=== PATIENT | male | born 1940 ===

== ENCOUNTER 2018-06-22 08:51 | Inpatient (IN) | payer BC, MEDICARE ==
[2018-06-22] MEDS ORDERED: Aztreonam 2 GM in Sodium Chloride 0.9% 100 ML IVPB STA (09:12)
[2018-06-22] MEDS ORDERED: Vancomycin 1 gm/NS 200 ml 1 GM/200 ML BAG IVPB STA (09:12)
[2018-06-22] MEDS ORDERED: (Novolin R) Insulin Human Regular 100 units/ml vial SC ONE (09:25)
[2018-06-22] MEDS ORDERED: (Novolin R) Insulin Human Regular 100 units/ml vial ONE (09:35)
[2018-06-22] MEDS ORDERED: Vancomycin 1 GM 1 GM/250 ML BAG IVPB ONE (09:36)
[2018-06-22 09:37] LABS: BASO % 0.2 % (0.0-2.0); HEMOGLOBIN 14.7 g/dL (12.0-18.0); LYMPH # 0.6 K/uL (1.0-4.3); LYMPH % 4.2 % (20.0-40.0); MEAN CELL VOLUME 89.7 fL (80.0-94.0); MEAN CORPUSCULAR HEMOGLOBIN 29.5 pg (27.0-31.0); MEAN CORPUSCULAR HGB CONC 32.9 g/dL (33.0-37.0); MEAN PLATELET VOLUME 10.3 fL (7.2-11.7); MONO # 0.3 K/uL (0.0-0.8); MONO % 2.1 % (0.0-10.0); NEUT # 14.2 K/uL (1.8-7.0); NEUT % 93.5 % (50.0-75.0); PLATELET COUNT 222 K/uL (130-400); RBC 4.98 Mil/uL (4.40-5.90); RED CELL DISTRIBUTION WIDTH 13.9 % (11.5-14.5); WHITE BLOOD COUNT 15.2 K/uL (4.8-10.8)
[2018-06-22 09:51] LABS: VENOUS BLOOD GAS PCO2 43 mmHg (40-60); VENOUS BLOOD GAS PO2 19 mm/Hg (30-55); VENOUS BLOOD PH 7.27 (7.32-7.43)
--- NOTE | 2018-06-22 09:53 | C.PDOC ---
History Of Present Illness Pt is a 78 years old male is a poor historian due to clinical condition. As per EMS, patient's called 911 for complaints of patient's aggressive and combative behavior since yesterday. As per EMS, also reports, patient is warm to touch, and he fell off of a chair this morning (but no head trauma). Pt is currently trying to punch this physician and does not answer questions. I called pt's PMD (Dr. Jhony Chu) and he states pt is normally calm and reports that the pt has a PMH of HTM, DM, hyperthyroidism, gastritis, renal failure, high cholesterol and DE. He states pt should be admitted to Dr. Dilan Aragon. As per EMS, should be arriving to the hospital a little later. PMD: * Vlad Mann Time Seen by Provider: 06/22/18 09:12 Chief Complaint (Nursing): Weakness/Neurological Deficit History Per: EMS, Family () History/Exam Limitations: clinical condition Onset/Duration Of Symptoms: Hrs Current Symptoms Are (Timing): Still Present Location Of Pain: None Sick Contacts (Context): None Associated Symptoms: Fever Ear Symptoms: Bilateral: None Recent travel outside of the [place]: No Past Medical History Reviewed: Historical Data, Nursing Documentation, Vital Signs Vital Signs: Last Vital Signs Temp 101.7 F H 06/22/18 09:08 Pulse 97 H 06/22/18 08:58 Resp 22 06/22/18 08:58 BP 202/103 H 06/22/18 08:58 Pulse Ox 95 06/22/18 08:58 - Medical History PMH: HTN Other PMH: See HPI Surgical History: No Surg Hx Family History: States: No Known Family Hx - Social History Hx Alcohol Use: No Hx Substance Use: No - Immunization History Hx Tetanus Toxoid Vaccination: No Hx Influenza Vaccination: No Hx Pneumococcal Vaccination: No Review Of Systems Review Of Systems: ROS cannot be obtained secondary to pt's inabilty to answer questions. (Due to Clinical condition) Constitutional: Positive for: Fever Physical Exam - Physical Exam Appears: Non-toxic, No Acute Distress, Combative, Agitated, Other (Patient Currently awake, alert, combative, not answering questions and tried to punch me) Skin: Normal Color, Warm, Dry, No Rash Head: Atraumatic Eye(s): bilateral: Normal Inspection, EOMI Ear(s): Bilateral: Normal Nose: Normal Oral Mucosa: Moist Tongue: Normal Appearing Lips: Normal Appearing Teeth: Normal Dentition Neck: Normal, Normal ROM, Supple, Other (no nuchal rigidity) Chest: Symmetrical, No Deformity, No Tenderness Cardiovascular: Rhythm Regular, No Murmur Respiratory: Normal Breath Sounds (Clear to auscultation bilaterally ), No Decreased Breath Sounds, No Rales, No Rhonchi, No Wheezing Gastrointestinal/Abdominal: Normal Exam, Bowel Sounds, Soft, No Tenderness, No Distention, No Guarding, No Rebound Rectal: Deferred Back: Normal Inspection Male Genital: Normal Inspection Extremity: Normal ROM, No Calf Tenderness, No Deformity Extremity: Bilateral: Atraumatic, No Pedal Edema, Normal Color And Temperature Pulses: Left Radial: Normal, Right Radial: Normal Neurological/Psych: Normal Speech, Normal Motor, Normal Sensation, Normal Reflexes, Other (No focal deficits, moves all ext equal bilaterally) ED Course And Treatment - Laboratory Results Result Diagrams: 06/22/18 09:29 06/22/18 09:29 O2 Sat by Pulse Oximetry: 95 (RA) Pulse Ox Interpretation: Normal - CT Scan/US CT HEAD Other Rad Studies (CT/US): Read By Radiologist, Radiology Report Reviewed CT/US Interpretation: Date of service: 06/22/2018. PROCEDURE: CT HEAD WITHOUT CONTRAST. HISTORY: Altered mental status. COMPARISON: None available. TECHNIQUE: Axial computed tomography images were obtained through the head/brain without intravenous contrast. Radiation dose: Total exam DLP = 1044.34 mGy-cm. This CT exam was performed using one or more of the following dose reduction techniques: Automated exposure control, adjustment of the mA and/or kV according to patient size, and/or use of iterative reconstruction technique. FINDINGS: HEMORRHAGE: No acute parenchymal, subarachnoid or extra- axial hemorrhage. BRAIN: Mild diffuse/confluent chronic periventricular white matter ischemic changes seen extending peripherally into the deep and subcortical white matter both cerebral hemispheres. In addition, there is a chronic appearing lacunar type infarct right thalamus with a few tiny focal areas of low attenuation scattered about both basal nuclei likely representing tiny chronic lacunar type infarcts . Suspect mild chronic brainstem lacunar type infarcts as well. No obvious parenchymal or extra-axial mass or collection. Moderate generalized volume loss. Actually no infra got. VENTRICLES: No obstructive hydrocephalus. CALVARIUM: No acute calvarial fractures vascular calcifications are seen within the scalp suggesting underlying diabetes mellitus. PARANASAL SINUSES: Unremarkable as visualized. No significant inflammatory changes. MASTOID AIR CELLS: Unremarkable as visualized. No inflammatory changes. OTHER FINDINGS: None. IMPRESSION: Mild diffuse/confluent chronic periventricular white matter ischemic changes seen extending peripherally into the deep and subcortical white matter both cerebral hemispheres. In addition, there is a chronic appearing lacunar type infarct right thalamus with a few tiny focal areas of low attenuation scattered about both basal nuclei likely representing tiny chronic lacunar type infarcts as well. Suspect mild chronic brainstem lacunar type infarcts as well. Moderate generalized volume loss. Medical Decision Making Medical Decision Making: Initial impression: * Sepsis- Source unclear Initial Plan: * Activation of sepsis order set Code sepsis activated at 9:53 AM 06/22/2018. Lactate is 3.3 -- patient meets core measure criteria for severe sepsis. Called private physician Vlad Mann which states patient has PMHx of Htn, diabetes, hyperthyroidism, gastritis, high cholestrol, renal faliure, and DE. He recommends for patient to be admitted under [facility]. 11:18 AM - I spoke to Dr. Melendez and agrees with ICU admission (recommends switch insulin drip to 2 U/hr and change fluids to 125 ml/hr). I endorsed pt to Dr. Chato Aragon. Dr. Aragon wants IV ceftriaxone to be given and also recommends ID consult with Dr. Arteaga. Disposition - Disposition Disposition: HOSPITALIZED Disposition Time: 11:20 Condition: SERIOUS - Clinical Impression Clinical Impression: Severe sepsis, Hyperglycemia, Altered mental status - Scribe Statement The provider has reviewed the documentation as recorded by the Zaraibashwin Maldonado All medical record entries made by the Scribe were at my direction and personally dictated by me. I have reviewed the chart and agree that the record accurately reflects my personal performance of the history, physical exam, medic al decision making, and the department course for this patient. I have also personally directed, reviewed, and agree with the discharge instructions and disposition. Decision To Admit - Pt Status Changed To: Hospital Disposition Of: Inpatient - Admit Certification Admit to Inpatient:: After my assessment, the patient will require hospitalization for at least two midnights. This is because of the severity of symptoms shown, intensity of services needed, and/or the medical risk in this patient being treated as an outpatient. - InPatient: Physician Admission Certification:: Patient with severe sepsis (using Sepsis-2 definitions; national core measure definitions). - . Bed Request Type: ICU Admitting Physician: Kevin Aragon Patient Diagnosis: Severe sepsis, Hyperglycemia, Altered mental status
[2018-06-22 10:04] LABS: TROPONIN I 0.05 ng/mL (0.00-0.120)
[2018-06-22 10:29] LABS: SQUAMOUS EPITHIAL < 1 /hpf (0-5); URINE BACTERIA RARE (<OCC); URINE BILIRUBIN NEGATIVE (NEGATIVE); URINE BLOOD 2+ (NEGATIVE); URINE CLARITY Clear (Clear); URINE COLOR Yellow (YELLOW); URINE GLUCOSE (UA) 3+ mg/dL (Normal); URINE LEUKOCYTE ESTERASE NEG Leu/uL (Negative); URINE PROTEIN 2+ mg/dL (NEGATIVE); URINE UROBILINOGEN NORMAL mg/dL (0.2-1.0)
--- NOTE | 2018-06-22 10:30 | CT ---
Date of service: 06/22/2018 PROCEDURE: CT HEAD WITHOUT CONTRAST. HISTORY: Altered mental status COMPARISON: None available. TECHNIQUE: Axial computed tomography images were obtained through the head/brain without intravenous contrast. Radiation dose: Total exam DLP = 1044.34 mGy-cm. This CT exam was performed using one or more of the following dose reduction techniques: Automated exposure control, adjustment of the mA and/or kV according to patient size, and/or use of iterative reconstruction technique. FINDINGS: HEMORRHAGE: No acute parenchymal, subarachnoid or extra-axial hemorrhage. BRAIN: Mild diffuse/confluent chronic periventricular white matter ischemic changes seen extending peripherally into the deep and subcortical white matter both cerebral hemispheres. In addition, there is a chronic appearing lacunar type infarct right thalamus with a few tiny focal areas of low attenuation scattered about both basal nuclei likely representing tiny chronic lacunar type infarcts . Suspect mild chronic brainstem lacunar type infarcts as well. No obvious parenchymal or extra-axial mass or collection. Moderate generalized volume loss. Actually no infra got VENTRICLES: No obstructive hydrocephalus. CALVARIUM: No acute calvarial fractures vascular calcifications are seen within the scalp suggesting underlying diabetes mellitus. PARANASAL SINUSES: Unremarkable as visualized. No significant inflammatory changes. MASTOID AIR CELLS: Unremarkable as visualized. No inflammatory changes. OTHER FINDINGS: None. IMPRESSION: Mild diffuse/confluent chronic periventricular white matter ischemic changes seen extending peripherally into the deep and subcortical white matter both cerebral hemispheres. In addition, there is a chronic appearing lacunar type infarct right thalamus with a few tiny focal areas of low attenuation scattered about both basal nuclei likely representing tiny chronic lacunar type infarcts as well. Suspect mild chronic brainstem lacunar type infarcts as well. Moderate generalized volume loss.
[2018-06-22 10:32] LABS: ALB/GLOB RATIO 1.2 (1.0-2.1); ALBUMIN 4.3 g/dL (3.5-5.0); BANDS 1 % (0-2); BASOPHIL 1 % (0-2); CALCIUM 9.1 mg/dl (8.6-10.4); LYMPHOCYTE 4 % (20-40); MONOCYTE 3 % (0-10); NEUTROPHIL 91 % (50-75); PLATELET ESTIMATE NORMAL (NORMAL); TOTAL CELLS COUNTED 100
[2018-06-22 10:33] LABS: ANISOCYTOSIS SLIGHT
[2018-06-22] MEDS ORDERED: Insulin Human Regular 100 UNIT in Sodium Chloride 0.9% 99 ML IV STA ×3 (11:01→13:06)
[2018-06-22] MEDS ORDERED: Sodium Chloride 0.9% 1,000 ML IV ONE ×2 (11:03→11:17)
[2018-06-22] MEDS ORDERED: cefTRIAXone 2 GM in Sodium Chloride 0.9% 100 ML IVPB ONE (11:15)
[2018-06-22] MEDS: cefTRIAXone 2 GM in Sodium Chloride 0.9% 100 ML IVPB STA ×2 (11:43→13:45)
[2018-06-22 12:28] LABS: VENOUS BLOOD GAS BASE EXCESS -4.8 mmol/L (0.0-2.0); VENOUS BLOOD GAS PCO2 41 mmHg (40-60); VENOUS BLOOD GAS PO2 24 mm/Hg (30-55); VENOUS BLOOD PH 7.32 (7.32-7.43)
[2018-06-22] MEDS ORDERED: Midazolam 2 MG/2 ML VIAL IVP ONE (14:00)
--- NOTE | 2018-06-22 14:26 | RAD ---
Date of service: [facility] 06/22/2018 PROCEDURE: Radiographs of the pelvis. HISTORY: Fall r/o pelvic bony injury COMPARISON: No prior available FINDINGS: BONES: Pelvic Bones: Unremarkable. Hips: Grossly unremarkable. JOINTS: Sacroiliac Joints: Unremarkable. Pubic Symphysis: Unremarkable. OTHER FINDINGS: Incidental note made of a thin radiopaque (metallic appearing linear density) overlying the true pelvis. Rule out in situ Wright catheter; clinical correlation recommended. IMPRESSION: No evidence of acute displaced fracture nor dislocation. See above discussion for additional findings details and recommendations
--- NOTE | 2018-06-22 14:28 | RAD ---
Date of service: 06/22/2018 HISTORY: Sepsis Patient COMPARISON: No prior. FINDINGS: LUNGS: Slight increased pulmonary vascularity; rule out mild chronic compensated pulmonary edema/CHF. Mild bibasilar atelectasis. PLEURA: No significant pleural effusion identified, no pneumothorax apparent. CARDIOVASCULAR: Sternotomy wires and CABG clips and in situ prostatic valve. Cardiomegaly. OSSEOUS STRUCTURES: No significant abnormalities. VISUALIZED UPPER ABDOMEN: Normal. OTHER FINDINGS: None. IMPRESSION: Slight increased pulmonary vascularity; rule out mild chronic compensated pulmonary edema/CHF. Mild bibasilar atelectasis. Cardiomegaly. See above discussion for additional details and findings.
[2018-06-22 15:00] LABS: BARBITURATES, UR NEGATIVE (NEGATIVE); BENZODIAZEPINES, UR NEGATIVE (NEGATIVE); OPIATES, UR NEGATIVE (NEGATIVE); PHENCYCLIDINE, UR NEGATIVE (NEGATIVE)
--- NOTE | 2018-06-22 15:40 | CP.PCM.HP ---
Past Patient History - Infectious Disease Hx of Infectious Diseases: None - Past Medical History & Family History Past Medical History?: Yes - Past Social History Smoking Status: Former Smoker - CARDIAC Hx Hypertension: Yes - NEUROLOGICAL Other/Comment: alzheimers?? dementia??? - ENDOCRINE/METABOLIC Hx Diabetes Mellitus Type 2: Yes - MUSCULOSKELETAL/RHEUMATOLOGICAL Hx Falls: No - PSYCHIATRIC Hx Substance Use: No - ANESTHESIA Hx Anesthesia: No Meds Allergies/Adverse Reactions: Allergies Allergy/AdvReac Type Severity Reaction Status Date / Time No Known Allergies Allergy Verified 06/22/18 09:05 Physical Exam - Constitutional Appears: Well - Head Exam Head Exam: ATRAUMATIC, NORMAL INSPECTION, NORMOCEPHALIC - Eye Exam Eye Exam: EOMI, Normal appearance, PERRL Pupil Exam: NORMAL ACCOMODATION, PERRL - ENT Exam ENT Exam: Mucous Membranes Moist, Normal Exam - Neck Exam Neck exam: Positive for: Normal Inspection - Respiratory Exam Respiratory Exam: Decreased Breath Sounds - Cardiovascular Exam Cardiovascular Exam: REGULAR RHYTHM, +S1, +S2 - GI/Abdominal Exam GI & Abdominal Exam: Diminished Bowel Sounds, Soft - Rectal Exam Rectal Exam: Deferred Results - Vital Signs Recent Vital Signs: Last Vital Signs Temp 100.4 F H 06/22/18 12:25 Pulse 98 H 06/22/18 13:07 Resp 20 06/22/18 13:00 BP 161/74 H 06/22/18 12:30 Pulse Ox 100 06/22/18 13:07 - Labs Result Diagrams: 06/22/18 09:29 06/22/18 09:29 Labs: Laboratory Results - last 24 hr 06/22/18 06/22/18 06/22/18 08:58 09:29 09:29 WBC 15.2 H RBC 4.98 Hgb 14.7 Hct 44.7 MCV 89.7 MCH 29.5 MCHC 32.9 L RDW 13.9 Plt Count 222 MPV 10.3 Neut % (Auto) 93.5 H Lymph % (Auto) 4.2 L [place] % (Auto) 2.1 Eos % (Auto) 0.0 Baso % (Auto) 0.2 Neut # (Auto) 14.2 H Lymph # (Auto) 0.6 L [place] # (Auto) 0.3 Eos # (Auto) 0.0 Baso # (Auto) 0.0 Neutrophils % (Manual) 91 H Band Neutrophils % 1 Lymphocytes % (Manual) 4 L Monocytes % (Manual) 3 Basophils % (Manual) 1 Platelet Estimate Normal Anisocytosis (manual) Slight PT 11.0 INR 1.0 APTT 32 pO2 VBG pH VBG pCO2 VBG HCO3 VBG Total CO2 VBG O2 Sat (Calc) VBG Base Excess VBG Potassium Glucose Lactate Crit Value Called To Crit Value Called By Crit Value Read Back Blood Gas Notified Time Sodium Potassium Chloride Carbon Dioxide Anion Gap BUN Creatinine Est GFR ( Amer) Est GFR (Non-Af Amer) POC Glucose (mg/dL) > 500 H* Random Glucose Calcium Phosphorus Magnesium Total Bilirubin AST ALT Alkaline Phosphatase Troponin I NT-Pro-B Natriuret Pep Total Protein Albumin Globulin Albumin/Globulin Ratio Venous Blood Potassium Urine Color Urine Clarity Urine pH Ur Specific [place] Urine Protein Urine Glucose (UA) Urine Ketones Urine Blood Urine Nitrate Urine Bilirubin Urine Urobilinogen Ur Leukocyte Esterase Urine WBC (Auto) Urine RBC (Auto) Ur Squamous Epith Cells Urine Bacteria Urine Opiates Screen Urine Methadone Screen Ur Barbiturates Screen Ur Phencyclidine Scrn Ur Amphetamines Screen U Benzodiazepines Scrn U Oth Cocaine Metabols U Cannabinoids Screen B-Hydroxybutyrate Influenza Typ A,B (EIA) 06/22/18 06/22/18 06/22/18 09:29 09:29 09:45 WBC RBC Hgb Hct MCV MCH MCHC RDW Plt Count MPV Neut % (Auto) Lymph % (Auto) [place] % (Auto) Eos % (Auto) Baso % (Auto) Neut # (Auto) Lymph # (Auto) [place] # (Auto) Eos # (Auto) Baso # (Auto) Neutrophils % (Manual) Band Neutrophils % Lymphocytes % (Manual) Monocytes % (Manual) Basophils % (Manual) Platelet Estimate Anisocytosis (manual) PT INR APTT pO2 19 L VBG pH 7.27 L VBG pCO2 43 VBG HCO3 17.4 VBG Total CO2 21.0 L VBG O2 Sat (Calc) 40.6 VBG Base Excess -7.0 L VBG Potassium 5.0 Glucose 492 H* Lactate 3.3 H Crit Value Called To Crit Value Called By Crit Value Read Back Blood Gas Notified Time Sodium 133 131.0 L Potassium 5.2 Chloride 93 L 97.0 L Carbon Dioxide 20 L Anion Gap 25 H BUN 47 H Creatinine 2.9 H Est GFR ( Amer) 26 Est GFR (Non-Af Amer) 21 POC Glucose (mg/dL) Random Glucose 867 H* Calcium 9.1 Phosphorus 4.3 Magnesium 2.0 Total Bilirubin 0.9 AST 15 L ALT 14 L Alkaline Phosphatase 204 H Troponin I 0.0500 NT-Pro-B Natriuret Pep 2580 H Total Protein 7.8 Albumin 4.3 Globulin 3.5 Albumin/Globulin Ratio 1.2 Venous Blood Potassium 5.0 Urine Color Urine Clarity Urine pH Ur Specific [place] Urine Protein Urine Glucose (UA) Urine Ketones Urine Blood Urine Nitrate Urine Bilirubin Urine Urobilinogen Ur Leukocyte Esterase Urine WBC (Auto) Urine RBC (Auto) Ur Squamous Epith Cells Urine Bacteria Urine Opiates Screen Urine Methadone Screen Ur Barbiturates Screen Ur Phencyclidine Scrn Ur Amphetamines Screen U Benzodiazepines Scrn U Oth Cocaine Metabols U Cannabinoids Screen B-Hydroxybutyrate 2.01 H Influenza Typ A,B (EIA) Negative for flu a/b 06/22/18 06/22/18 06/22/18 09:56 10:48 12:20 WBC RBC Hgb Hct MCV MCH MCHC RDW Plt Count MPV Neut % (Auto) Lymph % (Auto) [place] % (Auto) Eos % (Auto) Baso % (Auto) Neut # (Auto) Lymph # (Auto) [place] # (Auto) Eos # (Auto) Baso # (Auto) Neutrophils % (Manual) Band Neutrophils % Lymphocytes % (Manual) Monocytes % (Manual) Basophils % (Manual) Platelet Estimate Anisocytosis (manual) PT INR APTT pO2 24 L VBG pH 7.32 VBG pCO2 41 VBG HCO3 19.5 VBG Total CO2 22.4 VBG O2 Sat (Calc) 53.1 VBG Base Excess -4.8 L VBG Potassium 4.2 Glucose 565 H* Lactate 2.5 H Crit Value Called To Eduard lam Crit Value Called By Diana huertas Crit Value Read Back Y Blood Gas Notified Time 1227 Sodium 134.0 Potassium Chloride 104.0 Carbon Dioxide Anion Gap BUN Creatinine Est GFR ( Amer) Est GFR (Non-Af Amer) POC Glucose (mg/dL) > 500 H* Random Glucose Calcium Phosphorus Magnesium Total Bilirubin AST ALT Alkaline Phosphatase Troponin I NT-Pro-B Natriuret Pep Total Protein Albumin Globulin Albumin/Globulin Ratio Venous Blood Potassium 4.2 Urine Color Yellow Urine Clarity Clear Urine pH 5.0 Ur Specific [place] 1.020 Urine Protein 2+ H Urine Glucose (UA) 3+ H Urine Ketones Trace Urine Blood 2+ H Urine Nitrate Negative Urine Bilirubin Negative Urine Urobilinogen Normal Ur Leukocyte Esterase Neg Urine WBC (Auto) 2 Urine RBC (Auto) 30 H Ur Squamous Epith Cells < 1 Urine Bacteria Rare Urine Opiates Screen Urine Methadone Screen Ur Barbiturates Screen Ur Phencyclidine Scrn Ur Amphetamines Screen U Benzodiazepines Scrn U Oth Cocaine Metabols U Cannabinoids Screen B-Hydroxybutyrate Influenza Typ A,B (EIA) 06/22/18 06/22/18 06/22/18 12:59 14:30 14:32 WBC RBC Hgb Hct MCV MCH MCHC RDW Plt Count MPV Neut % (Auto) Lymph % (Auto) [place] % (Auto) Eos % (Auto) Baso % (Auto) Neut # (Auto) Lymph # (Auto) [place] # (Auto) Eos # (Auto) Baso # (Auto) Neutrophils % (Manual) Band Neutrophils % Lymphocytes % (Manual) Monocytes % (Manual) Basophils % (Manual) Platelet Estimate Anisocytosis (manual) PT INR APTT pO2 VBG pH VBG pCO2 VBG HCO3 VBG Total CO2 VBG O2 Sat (Calc) VBG Base Excess VBG Potassium Glucose Lactate Crit Value Called To Crit Value Called By Crit Value Read Back Blood Gas Notified Time Sodium Potassium Chloride Carbon Dioxide Anion Gap BUN Creatinine Est GFR ( Amer) Est GFR (Non-Af Amer) POC Glucose (mg/dL) > 500 H* > 500 H* Random Glucose Calcium Phosphorus Magnesium Total Bilirubin AST ALT Alkaline Phosphatase Troponin I NT-Pro-B Natriuret Pep Total Protein Albumin Globulin Albumin/Globulin Ratio Venous Blood Potassium Urine Color Urine Clarity Urine pH Ur Specific [place] Urine Protein Urine Glucose (UA) Urine Ketones Urine Blood Urine Nitrate Urine Bilirubin Urine Urobilinogen Ur Leukocyte Esterase Urine WBC (Auto) Urine RBC (Auto) Ur Squamous Epith Cells Urine Bacteria Urine Opiates Screen Negative Urine Methadone Screen Negative Ur Barbiturates Screen Negative Ur Phencyclidine Scrn Negative Ur Amphetamines Screen Negative U Benzodiazepines Scrn Negative U Oth Cocaine Metabols Negative U Cannabinoids Screen Negative B-Hydroxybutyrate Influenza Typ A,B (EIA) 06/22/18 06/22/18 14:36 15:16 WBC RBC Hgb Hct MCV MCH MCHC RDW Plt Count MPV Neut % (Auto) Lymph % (Auto) [place] % (Auto) Eos % (Auto) Baso % (Auto) Neut # (Auto) Lymph # (Auto) [place] # (Auto) Eos # (Auto) Baso # (Auto) Neutrophils % (Manual) Band Neutrophils % Lymphocytes % (Manual) Monocytes % (Manual) Basophils % (Manual) Platelet Estimate Anisocytosis (manual) PT INR APTT pO2 VBG pH VBG pCO2 VBG HCO3 VBG Total CO2 VBG O2 Sat (Calc) VBG Base Excess VBG Potassium Glucose Lactate Crit Value Called To Crit Value Called By Crit Value Read Back Blood Gas Notified Time Sodium Potassium Chloride Carbon Dioxide Anion Gap BUN Creatinine Est GFR ( Amer) Est GFR (Non-Af Amer) POC Glucose (mg/dL) 346 H 293 H Random Glucose Calcium Phosphorus Magnesium Total Bilirubin AST ALT Alkaline Phosphatase Troponin I NT-Pro-B Natriuret Pep Total Protein Albumin Globulin Albumin/Globulin Ratio Venous Blood Potassium Urine Color Urine Clarity Urine pH Ur Specific [place] Urine Protein Urine Glucose (UA) Urine Ketones Urine Blood Urine Nitrate Urine Bilirubin Urine Urobilinogen Ur Leukocyte Esterase Urine WBC (Auto) Urine RBC (Auto) Ur Squamous Epith Cells Urine Bacteria Urine Opiates Screen Urine Methadone Screen Ur Barbiturates Screen Ur Phencyclidine Scrn Ur Amphetamines Screen U Benzodiazepines Scrn U Oth Cocaine Metabols U Cannabinoids Screen B-Hydroxybutyrate Influenza Typ A,B (EIA)
[2018-06-22] MEDS: Dexmedetomidine Hydrochloride 200 MCG in Sodium Chloride 0.9% 48 ML IV PRN ×2 (15:45→21:43)
--- NOTE | 2018-06-22 15:59 | PCM.SEPTIC ---
<Moise Trinh L - Last Filed: 06/22/18 16:00> Sepsis Progress Note - Reassessment Type Date of Evaluation: 06/22/18 Time of Evaluation: 13:00 Reassessment Type: Non-invasive reassessment - Non Invasive Reassessment Were the most recent vital sign reviewed: Yes Vital Sign (Latest): Temp Pulse Resp BP Pulse Ox 100.9 F H 99 H 19 88/72 L 98 06/22/18 14:40 06/22/18 15:32 06/22/18 15:32 06/22/18 15:32 06/22/18 15:32 Cardiovascular: Yes: Regular Rate, Rhythm. No: Edema, JVD, Bradycardia Respiratory: Yes: Normal Breath Sounds. No: Accessory Muscle Use, Crackles, Rales, Rhonchi, Wheezing, Respiratory Distress Capillary Refill: Normal (Less than 2 sec) Pulses: Normal Radial, Normal Dorsalis Pedis, Normal Posterior Tibialis Skin: Normal Color, Warm, Dry <Melo Melendez - Last Filed: 06/22/18 18:42> Sepsis Progress Note - Non Invasive Reassessment Vital Sign (Latest): Temp Pulse Resp BP Pulse Ox 98.4 F 69 17 91/55 L 99 06/22/18 18:05 06/22/18 18:00 06/22/18 18:00 06/22/18 17:29 06/22/18 18:05 Attending/Attestation - Attestation I have personally seen and examined this patient.: Yes I have fully participated in the care of the patient.: Yes I have reviewed all pertinent clinical information, including history, physical exam and plan: Yes
--- NOTE | 2018-06-22 16:49 | CP.PCM.CON ---
History of Present Illness - History of Present Illness History of Present Illness: dictated Past Patient History - Infectious Disease Hx of Infectious Diseases: None - Past Medical History & Family History Past Medical History?: Yes - Past Social History Smoking Status: Former Smoker - CARDIAC Hx Hypertension: Yes - NEUROLOGICAL Other/Comment: alzheimers?? dementia??? - ENDOCRINE/METABOLIC Hx Diabetes Mellitus Type 2: Yes - MUSCULOSKELETAL/RHEUMATOLOGICAL Hx Falls: No - PSYCHIATRIC Hx Substance Use: No - ANESTHESIA Hx Anesthesia: No Meds Allergies/Adverse Reactions: Allergies Allergy/AdvReac Type Severity Reaction Status Date / Time No Known Allergies Allergy Verified 06/22/18 09:05 - Medications Medications: Current Medications Aspirin (Ecotrin) 81 mg PO DAILY [facility] Clopidogrel Bisulfate (Plavix) 75 mg PO DAILY [facility] Diltiazem HCl (Cardizem Cd) 180 mg PO DAILY [facility] Famotidine (Pepcid) 20 mg PO DAILY [facility] Ferrous Sulfate (Feosol) 325 mg PO DAILY [facility] Home Med (Febuxostat [Uloric]) 40 mg PO DAILY [facility] Home Med (Tizanidine [Zanaflex]) 2 mg PO TID [facility] Sodium Chloride (Sodium Chloride 0.9%) 1,000 mls @ 125 mls/hr IV .Q8H ONE Stop: 06/22/18 19:02 Last Admin: 06/22/18 11:20 Dose: 125 mls/hr Insulin Human Regular 100 unit (/ Sodium Chloride) 100 mls @ 5 mls/hr IV .Q20H STA; Protocol Stop: 06/23/18 07:15 Last Titration: 06/22/18 15:00 Dose: 5 units/h, 5 mls/hr Dexmedetomidine HCl 200 mcg/ (Sodium Chloride) 50 mls @ 3.86 mls/hr IV TITR PRN; Protocol PRN Reason: Agitation Last Titration: 06/22/18 16:40 Dose: 0.3 mcg/kg/hr, 5.8 mls/hr Levothyroxine Sodium (Synthroid) 50 mcg PO DAILY [facility] Losartan Potassium (Cozaar) 25 mg PO DAILY [facility] Metoprolol Succinate (Toprol Xl) 25 mg PO DAILY [facility] Sevelamer Carbonate (Renvela) 800 mg PO TIDCC [facility] Last Admin: 06/22/18 14:30 Dose: Not Given Tamsulosin HCl (Flomax) 0.4 mg PO DAILY [facility] Results - Vital Signs Recent Vital Signs: Last Vital Signs Temp 100.9 F H 06/22/18 14:40 Pulse 99 H 06/22/18 15:32 Resp 19 06/22/18 15:32 BP 88/72 L 06/22/18 15:32 Pulse Ox 98 06/22/18 15:32 - Labs Result Diagrams: 06/22/18 09:29 06/22/18 09:29 Labs: Laboratory Results - last 24 hr 06/22/18 06/22/18 06/22/18 08:58 09:29 09:29 WBC 15.2 H RBC 4.98 Hgb 14.7 Hct 44.7 MCV 89.7 MCH 29.5 MCHC 32.9 L RDW 13.9 Plt Count 222 MPV 10.3 Neut % (Auto) 93.5 H Lymph % (Auto) 4.2 L Ross % (Auto) 2.1 Eos % (Auto) 0.0 Baso % (Auto) 0.2 Neut # (Auto) 14.2 H Lymph # (Auto) 0.6 L Ross # (Auto) 0.3 Eos # (Auto) 0.0 Baso # (Auto) 0.0 Neutrophils % (Manual) 91 H Band Neutrophils % 1 Lymphocytes % (Manual) 4 L Monocytes % (Manual) 3 Basophils % (Manual) 1 Platelet Estimate Normal Anisocytosis (manual) Slight PT 11.0 INR 1.0 APTT 32 pO2 VBG pH VBG pCO2 VBG HCO3 VBG Total CO2 VBG O2 Sat (Calc) VBG Base Excess VBG Potassium Glucose Lactate Crit Value Called To Crit Value Called By Crit Value Read Back Blood Gas Notified Time Sodium Potassium Chloride Carbon Dioxide Anion Gap BUN Creatinine Est GFR ( Amer) Est GFR (Non-Af Amer) POC Glucose (mg/dL) > 500 H* Random Glucose Calcium Phosphorus Magnesium Total Bilirubin AST ALT Alkaline Phosphatase Troponin I NT-Pro-B Natriuret Pep Total Protein Albumin Globulin Albumin/Globulin Ratio Venous Blood Potassium Urine Color Urine Clarity Urine pH Ur Specific [place] Urine Protein Urine Glucose (UA) Urine Ketones Urine Blood Urine Nitrate Urine Bilirubin Urine Urobilinogen Ur Leukocyte Esterase Urine WBC (Auto) Urine RBC (Auto) Ur Squamous Epith Cells Urine Bacteria Urine Opiates Screen Urine Methadone Screen Ur Barbiturates Screen Ur Phencyclidine Scrn Ur Amphetamines Screen U Benzodiazepines Scrn U Oth Cocaine Metabols U Cannabinoids Screen B-Hydroxybutyrate Influenza Typ A,B (EIA) 06/22/18 06/22/18 06/22/18 09:29 09:29 09:45 WBC RBC Hgb Hct MCV MCH MCHC RDW Plt Count MPV Neut % (Auto) Lymph % (Auto) Ross % (Auto) Eos % (Auto) Baso % (Auto) Neut # (Auto) Lymph # (Auto) Ross # (Auto) Eos # (Auto) Baso # (Auto) Neutrophils % (Manual) Band Neutrophils % Lymphocytes % (Manual) Monocytes % (Manual) Basophils % (Manual) Platelet Estimate Anisocytosis (manual) PT INR APTT pO2 19 L VBG pH 7.27 L VBG pCO2 43 VBG HCO3 17.4 VBG Total CO2 21.0 L VBG O2 Sat (Calc) 40.6 VBG Base Excess -7.0 L VBG Potassium 5.0 Glucose 492 H* Lactate 3.3 H Crit Value Called To Crit Value Called By Crit Value Read Back Blood Gas Notified Time Sodium 133 131.0 L Potassium 5.2 Chloride 93 L 97.0 L Carbon Dioxide 20 L Anion Gap 25 H BUN 47 H Creatinine 2.9 H Est GFR ( Amer) 26 Est GFR (Non-Af Amer) 21 POC Glucose (mg/dL) Random Glucose 867 H* Calcium 9.1 Phosphorus 4.3 Magnesium 2.0 Total Bilirubin 0.9 AST 15 L ALT 14 L Alkaline Phosphatase 204 H Troponin I 0.0500 NT-Pro-B Natriuret Pep 2580 H Total Protein 7.8 Albumin 4.3 Globulin 3.5 Albumin/Globulin Ratio 1.2 Venous Blood Potassium 5.0 Urine Color Urine Clarity Urine pH Ur Specific [place] Urine Protein Urine Glucose (UA) Urine Ketones Urine Blood Urine Nitrate Urine Bilirubin Urine Urobilinogen Ur Leukocyte Esterase Urine WBC (Auto) Urine RBC (Auto) Ur Squamous Epith Cells Urine Bacteria Urine Opiates Screen Urine Methadone Screen Ur Barbiturates Screen Ur Phencyclidine Scrn Ur Amphetamines Screen U Benzodiazepines Scrn U Oth Cocaine Metabols U Cannabinoids Screen B-Hydroxybutyrate 2.01 H Influenza Typ A,B (EIA) Negative for flu a/b 06/22/18 06/22/18 06/22/18 09:56 10:48 12:20 WBC RBC Hgb Hct MCV MCH MCHC RDW Plt Count MPV Neut % (Auto) Lymph % (Auto) Ross % (Auto) Eos % (Auto) Baso % (Auto) Neut # (Auto) Lymph # (Auto) Ross # (Auto) Eos # (Auto) Baso # (Auto) Neutrophils % (Manual) Band Neutrophils % Lymphocytes % (Manual) Monocytes % (Manual) Basophils % (Manual) Platelet Estimate Anisocytosis (manual) PT INR APTT pO2 24 L VBG pH 7.32 VBG pCO2 41 VBG HCO3 19.5 VBG Total CO2 22.4 VBG O2 Sat (Calc) 53.1 VBG Base Excess -4.8 L VBG Potassium 4.2 Glucose 565 H* Lactate 2.5 H Crit Value Called To Eduard lam Crit Value Called By Diana huertas Crit Value Read Back Y Blood Gas Notified Time 1227 Sodium 134.0 Potassium Chloride 104.0 Carbon Dioxide Anion Gap BUN Creatinine Est GFR ( Amer) Est GFR (Non-Af Amer) POC Glucose (mg/dL) > 500 H* Random Glucose Calcium Phosphorus Magnesium Total Bilirubin AST ALT Alkaline Phosphatase Troponin I NT-Pro-B Natriuret Pep Total Protein Albumin Globulin Albumin/Globulin Ratio Venous Blood Potassium 4.2 Urine Color Yellow Urine Clarity Clear Urine pH 5.0 Ur Specific [place] 1.020 Urine Protein 2+ H Urine Glucose (UA) 3+ H Urine Ketones Trace Urine Blood 2+ H Urine Nitrate Negative Urine Bilirubin Negative Urine Urobilinogen Normal Ur Leukocyte Esterase Neg Urine WBC (Auto) 2 Urine RBC (Auto) 30 H Ur Squamous Epith Cells < 1 Urine Bacteria Rare Urine Opiates Screen Urine Methadone Screen Ur Barbiturates Screen Ur Phencyclidine Scrn Ur Amphetamines Screen U Benzodiazepines Scrn U Oth Cocaine Metabols U Cannabinoids Screen B-Hydroxybutyrate Influenza Typ A,B (EIA) 06/22/18 06/22/18 06/22/18 12:59 14:30 14:32 WBC RBC Hgb Hct MCV MCH MCHC RDW Plt Count MPV Neut % (Auto) Lymph % (Auto) Ross % (Auto) Eos % (Auto) Baso % (Auto) Neut # (Auto) Lymph # (Auto) Ross # (Auto) Eos # (Auto) Baso # (Auto) Neutrophils % (Manual) Band Neutrophils % Lymphocytes % (Manual) Monocytes % (Manual) Basophils % (Manual) Platelet Estimate Anisocytosis (manual) PT INR APTT pO2 VBG pH VBG pCO2 VBG HCO3 VBG Total CO2 VBG O2 Sat (Calc) VBG Base Excess VBG Potassium Glucose Lactate Crit Value Called To Crit Value Called By Crit Value Read Back Blood Gas Notified Time Sodium Potassium Chloride Carbon Dioxide Anion Gap BUN Creatinine Est GFR ( Amer) Est GFR (Non-Af Amer) POC Glucose (mg/dL) > 500 H* > 500 H* Random Glucose Calcium Phosphorus Magnesium Total Bilirubin AST ALT Alkaline Phosphatase Troponin I NT-Pro-B Natriuret Pep Total Protein Albumin Globulin Albumin/Globulin Ratio Venous Blood Potassium Urine Color Urine Clarity Urine pH Ur Specific [place] Urine Protein Urine Glucose (UA) Urine Ketones Urine Blood Urine Nitrate Urine Bilirubin Urine Urobilinogen Ur Leukocyte Esterase Urine WBC (Auto) Urine RBC (Auto) Ur Squamous Epith Cells Urine Bacteria Urine Opiates Screen Negative Urine Methadone Screen Negative Ur Barbiturates Screen Negative Ur Phencyclidine Scrn Negative Ur Amphetamines Screen Negative U Benzodiazepines Scrn Negative U Oth Cocaine Metabols Negative U Cannabinoids Screen Negative B-Hydroxybutyrate Influenza Typ A,B (EIA) 06/22/18 06/22/18 06/22/18 14:36 15:16 16:15 WBC RBC Hgb Hct MCV MCH MCHC RDW Plt Count MPV Neut % (Auto) Lymph % (Auto) Ross % (Auto) Eos % (Auto) Baso % (Auto) Neut # (Auto) Lymph # (Auto) Ross # (Auto) Eos # (Auto) Baso # (Auto) Neutrophils % (Manual) Band Neutrophils % Lymphocytes % (Manual) Monocytes % (Manual) Basophils % (Manual) Platelet Estimate Anisocytosis (manual) PT INR APTT pO2 VBG pH VBG pCO2 VBG HCO3 VBG Total CO2 VBG O2 Sat (Calc) VBG Base Excess VBG Potassium Glucose Lactate Crit Value Called To Crit Value Called By Crit Value Read Back Blood Gas Notified Time Sodium Potassium Chloride Carbon Dioxide Anion Gap BUN Creatinine Est GFR ( Amer) Est GFR (Non-Af Amer) POC Glucose (mg/dL) 346 H 293 H 138 H Random Glucose Calcium Phosphorus Magnesium Total Bilirubin AST ALT Alkaline Phosphatase Troponin I NT-Pro-B Natriuret Pep Total Protein Albumin Globulin Albumin/Globulin Ratio Venous Blood Potassium Urine Color Urine Clarity Urine pH Ur Specific [place] Urine Protein Urine Glucose (UA) Urine Ketones Urine Blood Urine Nitrate Urine Bilirubin Urine Urobilinogen Ur Leukocyte Esterase Urine WBC (Auto) Urine RBC (Auto) Ur Squamous Epith Cells Urine Bacteria Urine Opiates Screen Urine Methadone Screen Ur Barbiturates Screen Ur Phencyclidine Scrn Ur Amphetamines Screen U Benzodiazepines Scrn U Oth Cocaine Metabols U Cannabinoids Screen B-Hydroxybutyrate Influenza Typ A,B (EIA)
[2018-06-22] MEDS: cefTRIAXone 2 GM in Sodium Chloride 0.9% 100 ML IVPB SCH (17:16)
[2018-06-22] MEDS ORDERED: Dextrose 50% SYRINGE Inj (50 ml) ONE (17:25)
[2018-06-22] MEDS ORDERED: Dextrose 50% SYRINGE Inj (50 ml) IV ONE (17:45)
[2018-06-22] MEDS ORDERED: Home Med 1 UNIT (Tizanidine [Zanaflex] 2 MG) PO SCH (18:00)
[2018-06-22 18:03] LABS: CALCIUM 8.9 mg/dl (8.6-10.4)
--- NOTE | 2018-06-22 18:42 | CP.PCM.CON ---
<Moise Trinh L - Last Filed: 06/22/18 19:33> History of Present Illness - History of Present Illness History of Present Illness: Critical Care Consult Note Patient is a 78 year old male with past medical history of HTN, T2DM, hypercholesterolemia, hyperthyroidism, gastritis, renal failure, [place] presenting to ED with chief complaint of altered mental status. History was obtained from and close friend at bedside. The states that the patient was found to be agitated and combative beginning this morning. She believes he did not take his diabetes medications last night. 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 In the ED code sepsis was called for lactate level of 3.3. In addition, glucose level was >500 and so ICU was consulted. In the ED patient was administered 2 gm Azactam, 2 gm Rocephin, 1 gm vancomycin, 2 mg Ativan, and started on an insulin drip. PMH: HTN, T2DM, hypercholesterolemia, hyperthyroidism, gastritis, renal failure, [place] PSH: CABG 2016 Social: Former smoker, approximately 20 year history of 2-3 PPD Allergies: NKDA PMD: Dr. Booker Review of Systems - Review of Systems Systems not reviewed;Unavailable: Altered Mental Status Past Patient History - Infectious Disease Hx of Infectious Diseases: None - Past Medical History & Family History Past Medical History?: Yes - Past Social History Smoking Status: Former Smoker - CARDIAC Hx Hypertension: Yes - NEUROLOGICAL Other/Comment: alzheimers?? dementia??? - ENDOCRINE/METABOLIC Hx Diabetes Mellitus Type 2: Yes - MUSCULOSKELETAL/RHEUMATOLOGICAL Hx Falls: No - PSYCHIATRIC Hx Substance Use: No - ANESTHESIA Hx Anesthesia: No Meds Allergies/Adverse Reactions: Allergies Allergy/AdvReac Type Severity Reaction Status Date / Time No Known Allergies Allergy Verified 06/22/18 09:05 - Medications Medications: Current Medications Aspirin (Ecotrin) 81 mg PO DAILY [facility] Clopidogrel Bisulfate (Plavix) 75 mg PO DAILY [facility] Diltiazem HCl (Cardizem Cd) 180 mg PO DAILY [facility] Famotidine (Pepcid) 20 mg PO DAILY [facility] Ferrous Sulfate (Feosol) 325 mg PO DAILY [facility] Home Med (Febuxostat [Uloric]) 40 mg PO DAILY [facility] Home Med (Tizanidine [Zanaflex]) 2 mg PO TID [facility] Sodium Chloride (Sodium Chloride 0.9%) 1,000 mls @ 125 mls/hr IV .Q8H ONE Stop: 06/22/18 19:02 Last Admin: 06/22/18 11:20 Dose: 125 mls/hr Insulin Human Regular 100 unit (/ Sodium Chloride) 100 mls @ 5 mls/hr IV .Q20H STA; Protocol Stop: 06/23/18 07:15 Last Titration: 06/22/18 16:00 Dose: 0 units/h, 0 mls/hr Dexmedetomidine HCl 200 mcg/ (Sodium Chloride) 50 mls @ 3.86 mls/hr IV TITR PRN; Protocol PRN Reason: Agitation Last Titration: 06/22/18 17:18 Dose: 0.8 mcg/kg/hr, 15.42 mls/hr Ceftriaxone Sodium 2 gm/ (Sodium Chloride) 100 mls @ 100 mls/hr IVPB Q24H [facility]; Protocol Last Admin: 06/22/18 17:16 Dose: Not Given Levothyroxine Sodium (Synthroid) 50 mcg PO DAILY [facility] Losartan Potassium (Cozaar) 25 mg PO DAILY [facility] Metoprolol Succinate (Toprol Xl) 25 mg PO DAILY [facility] Sevelamer Carbonate (Renvela) 800 mg PO TIDCC [facility] Last Admin: 06/22/18 17:19 Dose: Not Given Tamsulosin HCl (Flomax) 0.4 mg PO DAILY [facility] Physical Exam - Constitutional Appears: Combative, Agitated - Head Exam Head Exam: ATRAUMATIC, NORMOCEPHALIC - Eye Exam Eye Exam: EOMI, Normal appearance, PERRL - ENT Exam ENT Exam: Mucous Membranes Moist, Normal Exam - Neck Exam Neck exam: Positive for: Normal Inspection - Cardiovascular Exam Cardiovascular Exam: REGULAR RHYTHM, +S1, +S2. absent: Tachycardia - GI/Abdominal Exam GI & Abdominal Exam: Normal Bowel Sounds, Soft. absent: Distended, Firm, Rebound, Rigid, Tenderness - Extremities Exam Extremities exam: Positive for: normal capillary refill, normal inspection, pedal pulses present. Negative for: joint swelling Additional comments: left knee joint warm to palpation. no erythema, skin intact. - Neurological Exam Neurological exam: Altered - Psychiatric Exam Psychiatric exam: Agitated - Skin Skin Exam: Dry, Intact, Normal Color Results - Vital Signs Recent Vital Signs: Last Vital Signs Temp 98.4 F 06/22/18 18:05 Pulse 69 06/22/18 18:00 Resp 17 06/22/18 18:00 BP 91/55 L 06/22/18 17:29 Pulse Ox 99 06/22/18 18:05 - Labs Result Diagrams: 06/22/18 09:29 06/22/18 17:36 Labs: Laboratory Results - last 24 hr 06/22/18 06/22/18 06/22/18 08:58 09:29 09:29 WBC 15.2 H RBC 4.98 Hgb 14.7 Hct 44.7 MCV 89.7 MCH 29.5 MCHC 32.9 L RDW 13.9 Plt Count 222 MPV 10.3 Neut % (Auto) 93.5 H Lymph % (Auto) 4.2 L [place] % (Auto) 2.1 Eos % (Auto) 0.0 Baso % (Auto) 0.2 Neut # (Auto) 14.2 H Lymph # (Auto) 0.6 L [place] # (Auto) 0.3 Eos # (Auto) 0.0 Baso # (Auto) 0.0 Neutrophils % (Manual) 91 H Band Neutrophils % 1 Lymphocytes % (Manual) 4 L Monocytes % (Manual) 3 Basophils % (Manual) 1 Platelet Estimate Normal Anisocytosis (manual) Slight PT 11.0 INR 1.0 APTT 32 pO2 VBG pH VBG pCO2 VBG HCO3 VBG Total CO2 VBG O2 Sat (Calc) VBG Base Excess VBG Potassium Glucose Lactate Crit Value Called To Crit Value Called By Crit Value Read Back Blood Gas Notified Time Sodium Potassium Chloride Carbon Dioxide Anion Gap BUN Creatinine Est GFR ( Amer) Est GFR (Non-Af Amer) POC Glucose (mg/dL) > 500 H* Random Glucose Calcium Phosphorus Magnesium Total Bilirubin AST ALT Alkaline Phosphatase Troponin I NT-Pro-B Natriuret Pep Total Protein Albumin Globulin Albumin/Globulin Ratio Venous Blood Potassium Urine Color Urine Clarity Urine pH Ur Specific [place] Urine Protein Urine Glucose (UA) Urine Ketones Urine Blood Urine Nitrate Urine Bilirubin Urine Urobilinogen Ur Leukocyte Esterase Urine WBC (Auto) Urine RBC (Auto) Ur Squamous Epith Cells Urine Bacteria Urine Opiates Screen Urine Methadone Screen Ur Barbiturates Screen Ur Phencyclidine Scrn Ur Amphetamines Screen U Benzodiazepines Scrn U Oth Cocaine Metabols U Cannabinoids Screen B-Hydroxybutyrate Influenza Typ A,B (EIA) 06/22/18 06/22/18 06/22/18 09:29 09:29 09:45 WBC RBC Hgb Hct MCV MCH MCHC RDW Plt Count MPV Neut % (Auto) Lymph % (Auto) [place] % (Auto) Eos % (Auto) Baso % (Auto) Neut # (Auto) Lymph # (Auto) [place] # (Auto) Eos # (Auto) Baso # (Auto) Neutrophils % (Manual) Band Neutrophils % Lymphocytes % (Manual) Monocytes % (Manual) Basophils % (Manual) Platelet Estimate Anisocytosis (manual) PT INR APTT pO2 19 L VBG pH 7.27 L VBG pCO2 43 VBG HCO3 17.4 VBG Total CO2 21.0 L VBG O2 Sat (Calc) 40.6 VBG Base Excess -7.0 L VBG Potassium 5.0 Glucose 492 H* Lactate 3.3 H Crit Value Called To Crit Value Called By Crit Value Read Back Blood Gas Notified Time Sodium 133 131.0 L Potassium 5.2 Chloride 93 L 97.0 L Carbon Dioxide 20 L Anion Gap 25 H BUN 47 H Creatinine 2.9 H Est GFR ( Amer) 26 Est GFR (Non-Af Amer) 21 POC Glucose (mg/dL) Random Glucose 867 H* Calcium 9.1 Phosphorus 4.3 Magnesium 2.0 Total Bilirubin 0.9 AST 15 L ALT 14 L Alkaline Phosphatase 204 H Troponin I 0.0500 NT-Pro-B Natriuret Pep 2580 H Total Protein 7.8 Albumin 4.3 Globulin 3.5 Albumin/Globulin Ratio 1.2 Venous Blood Potassium 5.0 Urine Color Urine Clarity Urine pH Ur Specific [place] Urine Protein Urine Glucose (UA) Urine Ketones Urine Blood Urine Nitrate Urine Bilirubin Urine Urobilinogen Ur Leukocyte Esterase Urine WBC (Auto) Urine RBC (Auto) Ur Squamous Epith Cells Urine Bacteria Urine Opiates Screen Urine Methadone Screen Ur Barbiturates Screen Ur Phencyclidine Scrn Ur Amphetamines Screen U Benzodiazepines Scrn U Oth Cocaine Metabols U Cannabinoids Screen B-Hydroxybutyrate 2.01 H Influenza Typ A,B (EIA) Negative for flu a/b 06/22/18 06/22/18 06/22/18 09:56 10:48 12:20 WBC RBC Hgb Hct MCV MCH MCHC RDW Plt Count MPV Neut % (Auto) Lymph % (Auto) [place] % (Auto) Eos % (Auto) Baso % (Auto) Neut # (Auto) Lymph # (Auto) [place] # (Auto) Eos # (Auto) Baso # (Auto) Neutrophils % (Manual) Band Neutrophils % Lymphocytes % (Manual) Monocytes % (Manual) Basophils % (Manual) Platelet Estimate Anisocytosis (manual) PT INR APTT pO2 24 L VBG pH 7.32 VBG pCO2 41 VBG HCO3 19.5 VBG Total CO2 22.4 VBG O2 Sat (Calc) 53.1 VBG Base Excess -4.8 L VBG Potassium 4.2 Glucose 565 H* Lactate 2.5 H Crit Value Called To Eduard lam Crit Value Called By Diana huertas Crit Value Read Back Y Blood Gas Notified Time 1227 Sodium 134.0 Potassium Chloride 104.0 Carbon Dioxide Anion Gap BUN Creatinine Est GFR ( Amer) Est GFR (Non-Af Amer) POC Glucose (mg/dL) > 500 H* Random Glucose Calcium Phosphorus Magnesium Total Bilirubin AST ALT Alkaline Phosphatase Troponin I NT-Pro-B Natriuret Pep Total Protein Albumin Globulin Albumin/Globulin Ratio Venous Blood Potassium 4.2 Urine Color Yellow Urine Clarity Clear Urine pH 5.0 Ur Specific [place] 1.020 Urine Protein 2+ H Urine Glucose (UA) 3+ H Urine Ketones Trace Urine Blood 2+ H Urine Nitrate Negative Urine Bilirubin Negative Urine Urobilinogen Normal Ur Leukocyte Esterase Neg Urine WBC (Auto) 2 Urine RBC (Auto) 30 H Ur Squamous Epith Cells < 1 Urine Bacteria Rare Urine Opiates Screen Urine Methadone Screen Ur Barbiturates Screen Ur Phencyclidine Scrn Ur Amphetamines Screen U Benzodiazepines Scrn U Oth Cocaine Metabols U Cannabinoids Screen B-Hydroxybutyrate Influenza Typ A,B (EIA) 06/22/18 06/22/18 06/22/18 12:59 14:30 14:32 WBC RBC Hgb Hct MCV MCH MCHC RDW Plt Count MPV Neut % (Auto) Lymph % (Auto) [place] % (Auto) Eos % (Auto) Baso % (Auto) Neut # (Auto) Lymph # (Auto) [place] # (Auto) Eos # (Auto) Baso # (Auto) Neutrophils % (Manual) Band Neutrophils % Lymphocytes % (Manual) Monocytes % (Manual) Basophils % (Manual) Platelet Estimate Anisocytosis (manual) PT INR APTT pO2 VBG pH VBG pCO2 VBG HCO3 VBG Total CO2 VBG O2 Sat (Calc) VBG Base Excess VBG Potassium Glucose Lactate Crit Value Called To Crit Value Called By Crit Value Read Back Blood Gas Notified Time Sodium Potassium Chloride Carbon Dioxide Anion Gap BUN Creatinine Est GFR ( Amer) Est GFR (Non-Af Amer) POC Glucose (mg/dL) > 500 H* > 500 H* Random Glucose Calcium Phosphorus Magnesium Total Bilirubin AST ALT Alkaline Phosphatase Troponin I NT-Pro-B Natriuret Pep Total Protein Albumin Globulin Albumin/Globulin Ratio Venous Blood Potassium Urine Color Urine Clarity Urine pH Ur Specific [place] Urine Protein Urine Glucose (UA) Urine Ketones Urine Blood Urine Nitrate Urine Bilirubin Urine Urobilinogen Ur Leukocyte Esterase Urine WBC (Auto) Urine RBC (Auto) Ur Squamous Epith Cells Urine Bacteria Urine Opiates Screen Negative Urine Methadone Screen Negative Ur Barbiturates Screen Negative Ur Phencyclidine Scrn Negative Ur Amphetamines Screen Negative U Benzodiazepines Scrn Negative U Oth Cocaine Metabols Negative U Cannabinoids Screen Negative B-Hydroxybutyrate Influenza Typ A,B (EIA) 06/22/18 06/22/18 06/22/18 14:36 15:16 16:15 WBC RBC Hgb Hct MCV MCH MCHC RDW Plt Count MPV Neut % (Auto) Lymph % (Auto) [place] % (Auto) Eos % (Auto) Baso % (Auto) Neut # (Auto) Lymph # (Auto) [place] # (Auto) Eos # (Auto) Baso # (Auto) Neutrophils % (Manual) Band Neutrophils % Lymphocytes % (Manual) Monocytes % (Manual) Basophils % (Manual) Platelet Estimate Anisocytosis (manual) PT INR APTT pO2 VBG pH VBG pCO2 VBG HCO3 VBG Total CO2 VBG O2 Sat (Calc) VBG Base Excess VBG Potassium Glucose Lactate Crit Value Called To Crit Value Called By Crit Value Read Back Blood Gas Notified Time Sodium Potassium Chloride Carbon Dioxide Anion Gap BUN Creatinine Est GFR ( Amer) Est GFR (Non-Af Amer) POC Glucose (mg/dL) 346 H 293 H 138 H Random Glucose Calcium Phosphorus Magnesium Total Bilirubin AST ALT Alkaline Phosphatase Troponin I NT-Pro-B Natriuret Pep Total Protein Albumin Globulin Albumin/Globulin Ratio Venous Blood Potassium Urine Color Urine Clarity Urine pH Ur Specific [place] Urine Protein Urine Glucose (UA) Urine Ketones Urine Blood Urine Nitrate Urine Bilirubin Urine Urobilinogen Ur Leukocyte Esterase Urine WBC (Auto) Urine RBC (Auto) Ur Squamous Epith Cells Urine Bacteria Urine Opiates Screen Urine Methadone Screen Ur Barbiturates Screen Ur Phencyclidine Scrn Ur Amphetamines Screen U Benzodiazepines Scrn U Oth Cocaine Metabols U Cannabinoids Screen B-Hydroxybutyrate Influenza Typ A,B (EIA) 06/22/18 06/22/18 06/22/18 17:10 17:13 17:36 WBC RBC Hgb Hct MCV MCH MCHC RDW Plt Count MPV Neut % (Auto) Lymph % (Auto) [place] % (Auto) Eos % (Auto) Baso % (Auto) Neut # (Auto) Lymph # (Auto) [place] # (Auto) Eos # (Auto) Baso # (Auto) Neutrophils % (Manual) Band Neutrophils % Lymphocytes % (Manual) Monocytes % (Manual) Basophils % (Manual) Platelet Estimate Anisocytosis (manual) PT INR APTT pO2 VBG pH VBG pCO2 VBG HCO3 VBG Total CO2 VBG O2 Sat (Calc) VBG Base Excess VBG Potassium Glucose Lactate Crit Value Called To Crit Value Called By Crit Value Read Back Blood Gas Notified Time Sodium 145 Potassium 3.5 L Chloride 109 H Carbon Dioxide 19 L Anion Gap 20 BUN 50 H Creatinine 3.5 H Est GFR ( Amer) 21 Est GFR (Non-Af Amer) 17 POC Glucose (mg/dL) 69 49 L Random Glucose 206 H Calcium 8.9 Phosphorus Magnesium Total Bilirubin AST ALT Alkaline Phosphatase Troponin I NT-Pro-B Natriuret Pep Total Protein Albumin Globulin Albumin/Globulin Ratio Venous Blood Potassium Urine Color Urine Clarity Urine pH Ur Specific [place] Urine Protein Urine Glucose (UA) Urine Ketones Urine Blood Urine Nitrate Urine Bilirubin Urine Urobilinogen Ur Leukocyte Esterase Urine WBC (Auto) Urine RBC (Auto) Ur Squamous Epith Cells Urine Bacteria Urine Opiates Screen Urine Methadone Screen Ur Barbiturates Screen Ur Phencyclidine Scrn Ur Amphetamines Screen U Benzodiazepines Scrn U Oth Cocaine Metabols U Cannabinoids Screen B-Hydroxybutyrate Influenza Typ A,B (EIA) 06/22/18 17:50 WBC RBC Hgb Hct MCV MCH MCHC RDW Plt Count MPV Neut % (Auto) Lymph % (Auto) [place] % (Auto) Eos % (Auto) Baso % (Auto) Neut # (Auto) Lymph # (Auto) [place] # (Auto) Eos # (Auto) Baso # (Auto) Neutrophils % (Manual) Band Neutrophils % Lymphocytes % (Manual) Monocytes % (Manual) Basophils % (Manual) Platelet Estimate Anisocytosis (manual) PT INR APTT pO2 VBG pH VBG pCO2 VBG HCO3 VBG Total CO2 VBG O2 Sat (Calc) VBG Base Excess VBG Potassium Glucose Lactate Crit Value Called To Crit Value Called By Crit Value Read Back Blood Gas Notified Time Sodium Potassium Chloride Carbon Dioxide Anion Gap BUN Creatinine Est GFR ( Amer) Est GFR (Non-Af Amer) POC Glucose (mg/dL) 152 H Random Glucose Calcium Phosphorus Magnesium Total Bilirubin AST ALT Alkaline Phosphatase Troponin I NT-Pro-B Natriuret Pep Total Protein Albumin Globulin Albumin/Globulin Ratio Venous Blood Potassium Urine Color Urine Clarity Urine pH Ur Specific [place] Urine Protein Urine Glucose (UA) Urine Ketones Urine Blood Urine Nitrate Urine Bilirubin Urine Urobilinogen Ur Leukocyte Esterase Urine WBC (Auto) Urine RBC (Auto) Ur Squamous Epith Cells Urine Bacteria Urine Opiates Screen Urine Methadone Screen Ur Barbiturates Screen Ur Phencyclidine Scrn Ur Amphetamines Screen U Benzodiazepines Scrn U Oth Cocaine Metabols U Cannabinoids Screen B-Hydroxybutyrate Influenza Typ A,B (EIA) Assessment & Plan - Assessment and Plan (Free Text) Assessment: Patient is a 78 year old male with past medical history of HTN, T2DM, hypercholesterolemia, hyperthyroidism, gastritis, renal failure, [place] presenting to ED with chief complaint of altered mental status with agitated and combative behavior, and was admitted to ICU for management of sepsis and DKA. Plan: Neuro: - Agitated, not following commands - Head CT shows mild diffuse/confluent chronic periventricular white matter ischemic changes seen extending peripherally into the deep and subcortical white matter. Chronic lacunar type infarct right thalamus, both basal nuclei. Mild chronic brainstem lacunar type infarcts. - Precedex - 25 mg fentanyl IV given once - Neurology consulted. Appreciate recs. Pulm: - CXR shows slight increased pulmonary vascularity, mild bibasilar atelectasis, cardiomegaly - maintain SPO2> 92 % CV: - maintain MAP> 65 - continue home Cardizem 180 mg PO daily, Cozaar 25 mg PO daily, Plavix 75 mg daily, Aspirin 81 mg daily, Metoprolol 25 mg PO daily GI: - swallow eval - Pepcid 20 mg PO dialy Renal: - Cr 3.5 - UA shows 2+ protein, 3+ glucose, 2+ blood, 30 RBCs - continue home tamsulosin 0.4 mg - monitor I and Os - monitor and replete electrolytes Endo: - B-hydroxybutyrate 2.01 - Glucose on VBG 492 - maintain euglycemia with blood sugars 140-180 - continue home Synthroid 50 mcg PO daily - Accuchecks Q6H - Insulin drip Heme: - monitor H&H - continue home ferrous sulfate 325 mg PO daily ID: - Temperature on admission 102.6, WBCs 15.2 - Code sepsis called - Flu negative - Followup blood cultures, urine cultures - ID consulted. Appreciate recs. - Rocephin 2 gm IV daily PPX: Pepcid 20 mg PO daily, Heparin 5000 units SC Q8H, SCDS Patient seen, reviewed, and discussed with attending, Dr. Al Trinh PGY-1 - Date & Time Date: 06/22/18 Time: 15:00 <Melo Melendez - Last Filed: 06/23/18 16:19> Meds - Medications Medications: Current Medications Aspirin (Ecotrin) 81 mg PO DAILY [facility] Clopidogrel Bisulfate (Plavix) 75 mg PO DAILY [facility] Diltiazem HCl (Cardizem Cd) 180 mg PO DAILY [facility] Last Admin: 06/23/18 10:41 Dose: Not Given Famotidine (Pepcid) 20 mg PO DAILY [facility] Last Admin: 06/23/18 12:56 Dose: 20 mg Ferrous Sulfate (Feosol) 325 mg PO DAILY [facility] Last Admin: 06/23/18 12:51 Dose: 325 mg Heparin Sodium (Porcine) (Heparin) 5,000 units SC Q8 [facility] Last Admin: 06/23/18 13:00 Dose: 5,000 units Home Med (Febuxostat [Uloric]) 40 mg PO DAILY [facility] Dexmedetomidine HCl 200 mcg/ (Sodium Chloride) 50 mls @ 3.86 mls/hr IV TITR PRN; Protocol PRN Reason: Agitation Last Titration: 06/23/18 14:57 Dose: 0.3 mcg/kg/hr, 5.78 mls/hr Ceftriaxone Sodium 2 gm/ (Sodium Chloride) 100 mls @ 100 mls/hr IVPB Q24H [facility]; Protocol Last Admin: 06/22/18 17:16 Dose: Not Given Sodium Chloride (Sodium Chloride 0.9%) 1,000 mls @ 50 mls/hr IV .Q20H [facility] Last Admin: 06/22/18 22:31 Dose: 50 mls/hr Insulin Aspart (Novolog) 0 unit SC Q4H [facility]; Protocol Last Admin: 06/23/18 12:57 Dose: 4 units Levothyroxine Sodium (Synthroid) 50 mcg PO DAILY [facility] Last Admin: 06/23/18 12:52 Dose: 50 mcg Losartan Potassium (Cozaar) 25 mg PO DAILY [facility] Last Admin: 06/23/18 12:52 Dose: 25 mg Metoprolol Succinate (Toprol Xl) 25 mg PO DAILY [facility] Last Admin: 06/23/18 10:43 Dose: Not Given Sevelamer Carbonate (Renvela) 800 mg PO TIDCC [facility] Last Admin: 06/23/18 13:13 Dose: 800 mg Tamsulosin HCl (Flomax) 0.4 mg PO DAILY [facility] Last Admin: 06/23/18 12:51 Dose: 0.4 mg Results - Vital Signs Recent Vital Signs: Last Vital Signs Temp 99.1 F 06/23/18 08:00 Pulse 52 L 06/23/18 14:02 Resp 20 06/23/18 14:02 BP 132/59 L 06/23/18 14:02 Pulse Ox 99 06/23/18 14:02 - Labs Result Diagrams: 06/23/18 06:33 06/23/18 06:33 Labs: Laboratory Results - last 24 hr 06/22/18 06/22/18 06/22/18 16:15 17:10 17:13 WBC RBC Hgb Hct MCV MCH MCHC RDW Plt Count MPV Neut % (Auto) Lymph % (Auto) [place] % (Auto) Eos % (Auto) Baso % (Auto) Neut # (Auto) Lymph # (Auto) [place] # (Auto) Eos # (Auto) Baso # (Auto) Neutrophils % (Manual) Band Neutrophils % Lymphocytes % (Manual) Monocytes % (Manual) Platelet Estimate Large Platelets Anisocytosis (manual) Puncture Site pCO2 pO2 HCO3 ABG pH ABG Total CO2 ABG O2 Saturation ABG Base Excess Jaciel Test ABG Potassium A-a O2 Difference Respiratory Index Glucose Lactate Liter Flow Vent Mode FiO2 Sodium Potassium Chloride Carbon Dioxide Anion Gap BUN Creatinine Est GFR ( Amer) Est GFR (Non-Af Amer) POC Glucose (mg/dL) 138 H 69 49 L Random Glucose Lactic Acid Calcium Phosphorus Magnesium Total Bilirubin AST ALT Alkaline Phosphatase Ammonia Total Protein Albumin Globulin Albumin/Globulin Ratio Prolactin Arterial Blood Potassium 06/22/18 06/22/18 06/22/18 17:36 17:50 19:45 WBC RBC Hgb Hct MCV MCH MCHC RDW Plt Count MPV Neut % (Auto) Lymph % (Auto) [place] % (Auto) Eos % (Auto) Baso % (Auto) Neut # (Auto) Lymph # (Auto) [place] # (Auto) Eos # (Auto) Baso # (Auto) Neutrophils % (Manual) Band Neutrophils % Lymphocytes % (Manual) Monocytes % (Manual) Platelet Estimate Large Platelets Anisocytosis (manual) Puncture Site pCO2 pO2 HCO3 ABG pH ABG Total CO2 ABG O2 Saturation ABG Base Excess Jaciel Test ABG Potassium A-a O2 Difference Respiratory Index Glucose Lactate Liter Flow Vent Mode FiO2 Sodium 145 Potassium 3.5 L Chloride 109 H Carbon Dioxide 19 L Anion Gap 20 BUN 50 H Creatinine 3.5 H Est GFR ( Amer) 21 Est GFR (Non-Af Amer) 17 POC Glucose (mg/dL) 152 H 177 H Random Glucose 206 H Lactic Acid Calcium 8.9 Phosphorus Magnesium Total Bilirubin AST ALT Alkaline Phosphatase Ammonia Total Protein Albumin Globulin Albumin/Globulin Ratio Prolactin Arterial Blood Potassium 06/23/18 06/23/18 06/23/18 00:12 01:59 04:09 WBC RBC Hgb Hct MCV MCH MCHC RDW Plt Count MPV Neut % (Auto) Lymph % (Auto) [place] % (Auto) Eos % (Auto) Baso % (Auto) Neut # (Auto) Lymph # (Auto) [place] # (Auto) Eos # (Auto) Baso # (Auto) Neutrophils % (Manual) Band Neutrophils % Lymphocytes % (Manual) Monocytes % (Manual) Platelet Estimate Large Platelets Anisocytosis (manual) Puncture Site pCO2 pO2 HCO3 ABG pH ABG Total CO2 ABG O2 Saturation ABG Base Excess Jaciel Test ABG Potassium A-a O2 Difference Respiratory Index Glucose Lactate Liter Flow Vent Mode FiO2 Sodium Potassium Chloride Carbon Dioxide Anion Gap BUN Creatinine Est GFR ( Amer) Est GFR (Non-Af Amer) POC Glucose (mg/dL) 303 H 301 H 311 H Random Glucose Lactic Acid Calcium Phosphorus Magnesium Total Bilirubin AST ALT Alkaline Phosphatase Ammonia Total Protein Albumin Globulin Albumin/Globulin Ratio Prolactin Arterial Blood Potassium 06/23/18 06/23/18 06/23/18 06:33 06:33 07:34 WBC 17.2 H RBC 4.37 L Hgb 12.7 D Hct 38.3 MCV 87.7 D MCH 29.0 MCHC 33.1 RDW 14.1 Plt Count 197 MPV 10.8 Neut % (Auto) 84.9 H Lymph % (Auto) 8.8 L [place] % (Auto) 5.5 Eos % (Auto) 0.0 Baso % (Auto) 0.8 Neut # (Auto) 14.6 H Lymph # (Auto) 1.5 [place] # (Auto) 0.9 H Eos # (Auto) 0.0 Baso # (Auto) 0.1 Neutrophils % (Manual) 85 H Band Neutrophils % 1 Lymphocytes % (Manual) 6 L Monocytes % (Manual) 8 Platelet Estimate Normal Large Platelets Present Anisocytosis (manual) Slight Puncture Site pCO2 pO2 HCO3 ABG pH ABG Total CO2 ABG O2 Saturation ABG Base Excess Jaciel Test ABG Potassium A-a O2 Difference Respiratory Index Glucose Lactate Liter Flow Vent Mode FiO2 Sodium 142 Potassium 4.5 Chloride 107 Carbon Dioxide 18 L Anion Gap 21 H BUN 60 H Creatinine 3.9 H Est GFR ( Amer) 18 Est GFR (Non-Af Amer) 15 POC Glucose (mg/dL) 298 H Random Glucose 350 H Lactic Acid Calcium 8.5 L Phosphorus 3.5 Magnesium 2.1 Total Bilirubin 0.5 AST 35 ALT 18 L D Alkaline Phosphatase 102 Ammonia Total Protein 6.6 Albumin 3.3 L D Globulin 3.3 Albumin/Globulin Ratio 1.0 Prolactin Arterial Blood Potassium 06/23/18 06/23/18 06/23/18 07:48 11:49 12:05 WBC RBC Hgb Hct MCV MCH MCHC RDW Plt Count MPV Neut % (Auto) Lymph % (Auto) [place] % (Auto) Eos % (Auto) Baso % (Auto) Neut # (Auto) Lymph # (Auto) [place] # (Auto) Eos # (Auto) Baso # (Auto) Neutrophils % (Manual) Band Neutrophils % Lymphocytes % (Manual) Monocytes % (Manual) Platelet Estimate Large Platelets Anisocytosis (manual) Puncture Site Rb pCO2 35 pO2 83 HCO3 21.9 ABG pH 7.38 ABG Total CO2 21.8 L ABG O2 Saturation 98.3 H ABG Base Excess -3.8 L Jaciel Test Na ABG Potassium 4.1 A-a O2 Difference 101.0 Respiratory Index 1.2 Glucose 245 H Lactate 0.8 Liter Flow 3.0 Vent Mode Nasal cannula FiO2 32.0 Sodium 142.0 Potassium Chloride 115.0 H Carbon Dioxide Anion Gap BUN Creatinine Est GFR ( Amer) Est GFR (Non-Af Amer) POC Glucose (mg/dL) 226 H Random Glucose Lactic Acid 1.1 Calcium Phosphorus Magnesium Total Bilirubin AST ALT Alkaline Phosphatase Ammonia Total Protein Albumin Globulin Albumin/Globulin Ratio Prolactin Arterial Blood Potassium 4.1 06/23/18 06/23/18 15:23 15:23 WBC RBC Hgb Hct MCV MCH MCHC RDW Plt Count MPV Neut % (Auto) Lymph % (Auto) [place] % (Auto) Eos % (Auto) Baso % (Auto) Neut # (Auto) Lymph # (Auto) [place] # (Auto) Eos # (Auto) Baso # (Auto) Neutrophils % (Manual) Band Neutrophils % Lymphocytes % (Manual) Monocytes % (Manual) Platelet Estimate Large Platelets Anisocytosis (manual) Puncture Site pCO2 pO2 HCO3 ABG pH ABG Total CO2 ABG O2 Saturation ABG Base Excess Jaciel Test ABG Potassium A-a O2 Difference Respiratory Index Glucose Lactate Liter Flow Vent Mode FiO2 Sodium Potassium Chloride Carbon Dioxide Anion Gap BUN Creatinine Est GFR ( Amer) Est GFR (Non-Af Amer) POC Glucose (mg/dL) Random Glucose Lactic Acid Calcium Phosphorus Magnesium Total Bilirubin AST ALT Alkaline Phosphatase Ammonia 14 Total Protein Albumin Globulin Albumin/Globulin Ratio Prolactin 21.3 H Arterial Blood Potassium Attending/Attestation - Attestation I have personally seen and examined this patient.: Yes I have fully participated in the care of the patient.: Yes I have reviewed all pertinent clinical information: Yes Notes (Text): I have seen and examined the patient. Medical records, lab studies, and imaging were reviewed by me and a management plan was formulated on multidisciplinary rounds with resident Dr. Phipps. I agree with their documented assessment and plan. Patient has metabolic encephalopathy from sepsis, source uncertain. DKA/HHS on insulin drip, weaning down. Critical Care Time 35 minutes. Multi-disciplinary rounds were performed with house staff, nursing, speech therapy, respiratory therapy, pharmacy and nutrition with integrated input from the primary team/attending and other consulting services. The documented time is cumulative and includes review of patient data/exams/labs/chart review and examination of the patient on rounds and throughout the day; time is exclusive of any procedures or teaching time.
[2018-06-22] MEDS ORDERED: Dextrose 5%/0.9% NS 1,000 ML IV SCH (19:15)
[2018-06-22] MEDS: (Novolin R) Insulin Human Regular 100 units/ml vial SC SCH (21:15)
[2018-06-22] MEDS ORDERED: Sodium Chloride 0.9% 1,000 ML IV SCH (21:15)
[2018-06-22] MEDS: Sodium Chloride 0.9% 1,000 ML IV SCH (22:31)
--- NOTE | 2018-06-23 00:03 | CON ---
DATE: 06/22/2018 INFECTIOUS DISEASE CONSULTATION REQUESTED BY: Camilo Aragon MD HISTORY OF PRESENT ILLNESS: This patient is a 78-year-old male. He is with altered mental status at this time. The is at the bedside who says that he was downstairs and she lives upstairs. The patient's said that when she came upstairs, she called out for him to eat something last night, but he did not and this morning, the patient was very agitated, confused. He was trying to punch and combative. EMS was called. The patient was brought to the hospital. He is in ICU at this time. He has high sugars. He is mentally there but remains lethargic. Past medical history is significant for diabetes, hyperthyroidism, gastritis, hypertension, renal failure, high cholesterol, history of MT. His primary is Dr. Jhony Chu. He is not allergic to any medicine. He comes under Dr. Kevin Aragon in the ER, they found his temperature to be 101.7. He also had a blood pressure of 202/103, so blood pressure was high. Saturation was 95%, respirations 20. PAST MEDICAL HISTORY: Significant for hypertension. PAST SURGICAL HISTORY: No surgical history. SOCIAL HISTORY: Negative for alcohol or drug abuse. REVIEW OF SYSTEMS: Unable to get any communication with him. He was fine day before. is not sure whether he took his medications or not. He did receive Rocephin today. PHYSICAL EXAMINATION: GENERAL: He is arousable. Remains in ICU. He is on insulin drip. HEENT: Head is atraumatic, normocephalic. Pupils are reacting to light. Tongue is dry. NECK: Supple. JVP is flat. LUNGS: Clear. No crackles or rales heard. HEART: S1 and S2 are regular. No murmurs appreciated. ABDOMEN: Soft, nontender. No guarding, no rigidity present. EXTREMITIES: Have no edema, clubbing, or cyanosis. Left knee was little bit warmer, but there is no effusion and no cellulitis. LABORATORY DATA: White count is 15.2, hemoglobin is 14.7, hematocrit 44.7, platelet count is 222. Neutrophils are 91, bands are 1. Lactate level was 3.3. It has decreased to 2.5. Sugar still is 565. It was 492. 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 BUN is 47, creatinine is 2.9, CO2 was 20, and chlorides are 93. His proBNP is 2580. AST is 15, ALT is 14. He had a chest x-ray done. Not able to get the chest x-ray. He did have a septic workup done. ASSESSMENT AND PLAN: I would at this point continue Rocephin. He does have metabolic encephalopathy. Came in with high blood pressure and high sugar and need to be monitored. Abdomen appears benign. If he continues to be febrile, we will get CAT scan of the chest, abdomen and pelvis, but for now we will continue with Rocephin. Also, I told the resident to do a nasal flu swab. We will follow. Johanne Arteaga MD
[2018-06-23] MEDS: (Novolin R) Insulin Human Regular 100 units/ml vial SC SCH (00:15)
[2018-06-23] MEDS: Dexmedetomidine Hydrochloride 200 MCG in Sodium Chloride 0.9% 48 ML IV PRN ×4 (02:46→14:30)
[2018-06-23] MEDS: (Novolog) Insulin Aspart, Recombinant 100 u/ml 10 ml vial SC SCH ×5 (04:15→20:03)
[2018-06-23 06:37] LABS: BASO # 0.1 K/uL (0.0-0.2); BASO % 0.8 % (0.0-2.0); LYMPH # 1.5 K/uL (1.0-4.3); LYMPH % 8.8 % (20.0-40.0); MEAN CELL VOLUME 87.7 fL (80.0-94.0); MEAN CORPUSCULAR HGB CONC 33.1 g/dL (33.0-37.0); MEAN PLATELET VOLUME 10.8 fL (7.2-11.7); MONO # 0.9 K/uL (0.0-0.8); MONO % 5.5 % (0.0-10.0); NEUT # 14.6 K/uL (1.8-7.0); NEUT % 84.9 % (50.0-75.0); PLATELET COUNT 197 K/uL (130-400); RBC 4.37 Mil/uL (4.40-5.90); RED CELL DISTRIBUTION WIDTH 14.1 % (11.5-14.5); WHITE BLOOD COUNT 17.2 K/uL (4.8-10.8)
[2018-06-23 06:42] LABS: HEMOGLOBIN 12.7 g/dL (12.0-18.0)
[2018-06-23 07:12] LABS: ALBUMIN 3.3 g/dL (3.5-5.0); CALCIUM 8.5 mg/dl (8.6-10.4)
[2018-06-23 08:23] LABS: BANDS 1 % (0-2); LYMPHOCYTE 6 % (20-40); MONOCYTE 8 % (0-10); NEUTROPHIL 85 % (50-75); TOTAL CELLS COUNTED 100
[2018-06-23 08:29] LABS: ANISOCYTOSIS SLIGHT; LARGE PLATELETS PRESENT; PLATELET ESTIMATE NORMAL (NORMAL)
[2018-06-23] MEDS ORDERED: Home Med 1 UNIT (Febuxostat [Uloric] 40 MG) PO SCH (10:00)
[2018-06-23] MEDS: diltiaZEM 180 mg/24 Hours CD Cap PO SCH (10:41)
[2018-06-23] MEDS: Metoprolol Succinate 25 mg XL Tab PO SCH (10:43)
[2018-06-23] MEDS ORDERED: Piperacill/Tazo 2.25gm in Dex 2.25 GM/50 ML BAG IVPB SCH (11:00)
[2018-06-23 12:13] LABS: ARTERIAL BLOOD GAS HCO3 21.9 mmol/L (21-28); ARTERIAL BLOOD GAS O2 SAT 98.3 % (95-98); ARTERIAL BLOOD GAS PCO2 35 mm/Hg (35-45); ARTERIAL BLOOD GAS PH 7.38 (7.35-7.45); ARTERIAL BLOOD GAS PO2 83 mm/Hg (80-100); ARTERIAL BLOOD GAS TCO2 21.8 mmol/L (22-28)
[2018-06-23] MEDS: Levothyroxine 50 MCG TAB PO SCH (12:52)
--- NOTE | 2018-06-23 14:00 | RAD ---
Date of service: 06/23/2018 HISTORY: s/p ngt COMPARISON: Comparison chest 06/22/2018 FINDINGS: No NGT is identified.. Clinical correlation recommended. LUNGS: Mild bibasilar atelectasis and/or scarring changes left greater than right. PLEURA: No significant pleural effusion identified, no pneumothorax apparent. CARDIOVASCULAR: Borderline/mild cardiomegaly. Sternotomy wires CABG clips and prostatic valve again noted OSSEOUS STRUCTURES: No significant abnormalities. VISUALIZED UPPER ABDOMEN: Normal. OTHER FINDINGS: None. IMPRESSION: No NGT identified. Bibasilar atelectasis and or scarring changes left greater than right
--- NOTE | 2018-06-23 14:42 | CP.PCM.PN ---
Subjective - Date & Time of Evaluation Date of Evaluation: 06/23/18 Time of Evaluation: 12:00 - Subjective Subjective: clinically same Objective - Vital Signs/Intake and Output Vital Signs (last 24 hours): Temp Pulse Resp BP Pulse Ox 99.1 F 52 L 20 132/59 L 99 06/23/18 08:00 06/23/18 14:02 06/23/18 14:02 06/23/18 14:02 06/23/18 14:02 Intake and Output: 06/23/18 06/23/18 06:59 18:59 Intake Total 1115.5 669.4 Output Total 225 360 Balance 890.5 309.4 - Medications Medications: Current Medications Aspirin (Ecotrin) 81 mg PO DAILY [facility] Clopidogrel Bisulfate (Plavix) 75 mg PO DAILY [facility] Diltiazem HCl (Cardizem Cd) 180 mg PO DAILY [facility] Last Admin: 06/23/18 10:41 Dose: Not Given Famotidine (Pepcid) 20 mg PO DAILY [facility] Last Admin: 06/23/18 12:56 Dose: 20 mg Ferrous Sulfate (Feosol) 325 mg PO DAILY [facility] Last Admin: 06/23/18 12:51 Dose: 325 mg Heparin Sodium (Porcine) (Heparin) 5,000 units SC Q8 [facility] Last Admin: 06/23/18 13:00 Dose: 5,000 units Home Med (Febuxostat [Uloric]) 40 mg PO DAILY [facility] Dexmedetomidine HCl 200 mcg/ (Sodium Chloride) 50 mls @ 3.86 mls/hr IV TITR PRN; Protocol PRN Reason: Agitation Last Admin: 06/23/18 10:40 Dose: 0.7 mcg/kg/hr, 13.5 mls/hr Ceftriaxone Sodium 2 gm/ (Sodium Chloride) 100 mls @ 100 mls/hr IVPB Q24H [facility]; Protocol Last Admin: 06/22/18 17:16 Dose: Not Given Sodium Chloride (Sodium Chloride 0.9%) 1,000 mls @ 50 mls/hr IV .Q20H [facility] Last Admin: 06/22/18 22:31 Dose: 50 mls/hr Piperacillin Sod/Tazobactam Sod (Zosyn 2.25 Gm Iv Premix) 2.25 gm in 50 mls @ 100 mls/hr IVPB Q8H [facility]; Protocol Last Admin: 06/23/18 10:47 Dose: 100 mls/hr Insulin Aspart (Novolog) 0 unit SC Q4H [facility]; Protocol Last Admin: 06/23/18 12:57 Dose: 4 units Levothyroxine Sodium (Synthroid) 50 mcg PO DAILY [facility] Last Admin: 06/23/18 12:52 Dose: 50 mcg Losartan Potassium (Cozaar) 25 mg PO DAILY [facility] Last Admin: 06/23/18 12:52 Dose: 25 mg Metoprolol Succinate (Toprol Xl) 25 mg PO DAILY [facility] Last Admin: 06/23/18 10:43 Dose: Not Given Sevelamer Carbonate (Renvela) 800 mg PO TIDCC [facility] Last Admin: 06/23/18 13:13 Dose: 800 mg Tamsulosin HCl (Flomax) 0.4 mg PO DAILY [facility] Last Admin: 06/23/18 12:51 Dose: 0.4 mg - Labs Labs: 06/23/18 06:33 06/23/18 06:33 PT 11.0 SECONDS (9.7-12.2) 06/22/18 09:29 INR 1.0 06/22/18 09:29 APTT 32 SECONDS (21-34) 06/22/18 09:29 - Constitutional Appears: Well - Head Exam Head Exam: ATRAUMATIC, NORMAL INSPECTION, NORMOCEPHALIC - Eye Exam Eye Exam: EOMI, Normal appearance, PERRL Pupil Exam: NORMAL ACCOMODATION, PERRL - ENT Exam ENT Exam: Mucous Membranes Moist, Normal Exam - Neck Exam Neck Exam: Full ROM, Normal Inspection. absent: Lymphadenopathy - Respiratory Exam Respiratory Exam: Decreased Breath Sounds - Cardiovascular Exam Cardiovascular Exam: REGULAR RHYTHM, +S1, +S2 - GI/Abdominal Exam GI & Abdominal Exam: Soft, Diminished Bowel Sounds - Rectal Exam Rectal Exam: Deferred
--- NOTE | 2018-06-23 14:58 | CT ---
Date of service: 06/23/2018 PROCEDURE: CT Lumbar Spine without contrast HISTORY: AMS r/o abscess COMPARISON: None available. TECHNIQUE: Axial computed tomography images were obtained of the lumbar spine without the use of intravenous contrast. Coronal and sagittal reformatted images were created and reviewed. Radiation dose: Total exam DLP = 1010.67 mGy-cm. This CT exam was performed using one or more of the following dose reduction techniques: Automated exposure control, adjustment of the mA and/or kV according to patient size, and/or use of iterative reconstruction technique. FINDINGS: VERTEBRAE: Unremarkable. No fracture. Normal alignment. DISCS/SPINAL CANAL/NEURAL FORAMINA: L1-2: Disc space height maintained. No evidence of disc herniation or significant disc bulge. The overall central bony canal and exit foramina appear adequate. Facets are slightly overgrown L2-3: Disc space height maintained. No evidence of disc herniation or significant disc bulge. The overall central bony canal and exit foramina appear adequate. Facets are slightly overgrown L3-4: Disc space height maintained. No evidence of disc herniation or significant disc bulge. The overall central bony canal and exit foramina appear adequate. Facets are slightly overgrown L4-5: Disc space height maintained. Minimal broad-based bulge of the posterior annulus is present.. Facets also mildly hypertrophic.. The overall central bony canal and exit foramina appear adequate.. L5-S1: Mild posterior disc space narrowing. Minimal subchondral cystic changes seen along the superior S1 endplate... Small broad-based disc bulge ridge complex extends slightly into the proximal inferior margins of both exit foramina. Overall central bony canal appears adequate. Facets are mild to moderately hypertrophic. Overall central bony canal and exit foramina are adequate. PARASPINAL SOFT TISSUES: Paraspinal soft tissues unremarkable without evidence of phlegmon or fluid collections. No evidence of subcutaneous air OTHER FINDINGS: Minor linear atelectatic and or scarring changes both medial lung bases. There may also be some minor calcific densities right medial lung base as well. IMPRESSION: No acute fractures. Very minor degenerative spondylosis most notably affecting the L5-S1 and L4-L5 levels as described No evidence paraspinal abscess
--- NOTE | 2018-06-23 16:24 | CP.CCUPN ---
CCU Subjective - Physician Review Events Since Last Encounter (Free Text): 06/23/18 16:20 patient is now intermittently agitated with periods of lucidity, overall improved. CCU Objective - Vital Signs / Intake & Output Vital Signs (Last 4 hours): Vital Signs Pulse Resp BP Pulse Ox 06/23/18 14:02 52 L 20 132/59 L 99 06/23/18 14:00 53 L 22 98 06/23/18 13:02 53 L 21 142/58 L 99 06/23/18 13:00 52 L 18 100 Intake and Output (Last 8hrs): Intake & Output 06/23/18 06/23/18 06/23/18 06:59 14:59 22:59 Intake Total 600.4 725.4 55.7 Output Total 160 360 Balance 440.4 365.4 55.7 Weight 170 lb Intake: IV 100 106 Intake, IV Amount 500.4 519.4 55.7 Left lower arm 400 400 50 Right Antecubital 100.4 119.4 5.7 Oral 100 Output: Urine 160 360 Urethral (Wright) 160 360 Other: # Bowel Movements 0 0 - Physical Exam Head: Positive for: Atraumatic, Normocephalic Pupils: Positive for: PERRL Extroacular Muscles: Positive for: EOMI Conjunctiva: Positive for: Normal Mouth: Positive for: Moist Mucous Membranes Neck: Positive for: Normal Range of Motion Respiratory/Chest: Positive for: Clear to Auscultation, Good Air Exchange Cardiovascular: Positive for: Regular Rate and Rhythm Abdomen: Positive for: Normal Bowel Sounds. Negative for: Tenderness, Distention Lower Extremity: Positive for: Temperature Abnormalties (left knee) Psychiatric: Positive for: Alert. Negative for: Oriented x 3 - Medications Active Medications: Active Medications Generic Name Dose Route Start Last Admin Trade Name Freq PRN Reason Stop Dose Admin Aspirin 81 mg 06/23/18 10:00 Ecotrin PO DAILY ALEX Clopidogrel Bisulfate 75 mg 06/23/18 10:00 Plavix PO DAILY ALEX Diltiazem HCl 180 mg 06/23/18 10:00 06/23/18 10:41 Cardizem Cd PO Not Given DAILY ALEX Famotidine 20 mg 06/23/18 10:00 06/23/18 12:56 Pepcid PO 20 mg DAILY ALEX Administration Ferrous Sulfate 325 mg 06/23/18 10:00 06/23/18 12:51 Feosol PO 325 mg DAILY ALEX Administration Heparin Sodium (Porcine) 5,000 units 06/22/18 22:00 06/23/18 13:00 Heparin SC 5,000 units Q8 ALEX Administration Home Med 40 mg 06/23/18 10:00 Febuxostat [Uloric] PO DAILY ALEX Dexmedetomidine HCl 200 mcg/ 50 mls @ 3.86 mls/hr 06/22/18 15:30 06/23/18 14:57 Sodium Chloride IV 0.3 mcg/kg/hr TITR PRN 5.78 mls/hr Agitation Titration Protocol 0.2 MCG/KG/HR Ceftriaxone Sodium 2 gm/ 100 mls @ 100 mls/hr 06/22/18 18:00 06/22/18 17:16 Sodium Chloride IVPB Not Given Q24H ALEX Protocol Sodium Chloride 1,000 mls @ 50 mls/hr 06/22/18 22:19 06/22/18 22:31 Sodium Chloride 0.9% IV 50 mls/hr .Q20H ALEX Administration Insulin Aspart 0 unit 06/23/18 04:00 06/23/18 12:57 Novolog SC 4 units Q4H ALEX Administration Protocol Levothyroxine Sodium 50 mcg 06/23/18 10:00 06/23/18 12:52 Synthroid PO 50 mcg DAILY ALEX Administration Losartan Potassium 25 mg 06/23/18 10:00 06/23/18 12:52 Cozaar PO 25 mg DAILY ALEX Administration Metoprolol Succinate 25 mg 06/23/18 10:00 06/23/18 10:43 Toprol Xl PO Not Given DAILY ALEX Sevelamer Carbonate 800 mg 06/22/18 14:30 06/23/18 13:13 Renvela PO 800 mg TIDCC ALEX Administration Tamsulosin HCl 0.4 mg 06/23/18 10:00 06/23/18 12:51 Flomax PO 0.4 mg DAILY ALEX Administration - Patient Studies Lab Studies: Microbiology Studies 06/22/18 14:30 Blood Culture - Preliminary Blood NO GROWTH AFTER 24 HOURS 06/22/18 14:30 Blood Culture - Preliminary Blood NO GROWTH AFTER 24 HOURS Lab Studies 06/23/18 06/23/18 06/23/18 Range/Units 15:23 15:23 12:05 WBC (4.8-10.8) K/uL RBC (4.40-5.90) Mil/uL Hgb (12.0-18.0) g/dL Hct (35.0-51.0) % MCV (80.0-94.0) fL MCH (27.0-31.0) pg MCHC (33.0-37.0) g/dL RDW (11.5-14.5) % Plt Count (130-400) K/uL MPV (7.2-11.7) fL Neut % (Auto) (50.0-75.0) % Lymph % (Auto) (20.0-40.0) % Amador % (Auto) (0.0-10.0) % Eos % (Auto) (0.0-4.0) % Baso % (Auto) (0.0-2.0) % Neut # (Auto) (1.8-7.0) K/uL Lymph # (Auto) (1.0-4.3) K/uL Am[place] # (Auto) (0.0-0.8) K/uL Eos # (Auto) (0.0-0.7) K/uL Baso # (Auto) (0.0-0.2) K/uL Neutrophils % (Manual) (50-75) % Band Neutrophils % (0-2) % Lymphocytes % (Manual) (20-40) % Monocytes % (Manual) (0-10) % Platelet Estimate (NORMAL) Large Platelets Anisocytosis (manual) Puncture Site Rb pCO2 35 (35-45) mm/Hg pO2 83 (80-100) mm/Hg HCO3 21.9 (21-28) mmol/L ABG pH 7.38 (7.35-7.45) ABG Total CO2 21.8 L (22-28) mmol/L ABG O2 Saturation 98.3 H (95-98) % ABG Base Excess -3.8 L (-2.0-3.0) mmol/L Jaciel Test Na ABG Potassium 4.1 (3.6-5.2) mmol/L A-a O2 Difference 101.0 mm/Hg Respiratory Index 1.2 Glucose 245 H (75-110) mg/dl Lactate 0.8 (0.7-2.1) mmol/L Liter Flow 3.0 Vent Mode Nasal cannula FiO2 32.0 % Sodium 142.0 (132-148) mmol/L Potassium (3.6-5.2) mmol/L Chloride 115.0 H (98-107) mmol/L Carbon Dioxide (22-30) mmol/L Anion Gap (10-20) BUN (9-20) mg/dL Creatinine (0.8-1.5) mg/dL Est GFR ( Amer) Est GFR (Non-Af Amer) POC Glucose (mg/dL) (65-110) mg/dL Random Glucose (75-110) mg/dL Lactic Acid (0.7-2.1) mmol/L Calcium (8.6-10.4) mg/dl Phosphorus (2.5-4.5) mg/dL Magnesium (1.6-2.3) mg/dL Total Bilirubin (0.2-1.3) mg/dL AST (17-59) U/L ALT (21-72) U/L Alkaline Phosphatase (38-126) U/L Ammonia 14 (9-33) umol/L Total Protein (6.3-8.3) g/dL Albumin (3.5-5.0) g/dL Globulin (2.2-3.9) gm/dL Albumin/Globulin Ratio (1.0-2.1) Prolactin 21.3 H (3.7-17.9) ng/mL Arterial Blood Potassium 4.1 (3.6-5.2) mmol/L 06/23/18 06/23/18 06/23/18 Range/Units 11:49 07:48 07:34 WBC (4.8-10.8) K/uL RBC (4.40-5.90) Mil/uL Hgb (12.0-18.0) g/dL Hct (35.0-51.0) % MCV (80.0-94.0) fL MCH (27.0-31.0) pg MCHC (33.0-37.0) g/dL RDW (11.5-14.5) % Plt Count (130-400) K/uL MPV (7.2-11.7) fL Neut % (Auto) (50.0-75.0) % Lymph % (Auto) (20.0-40.0) % Amador % (Auto) (0.0-10.0) % Eos % (Auto) (0.0-4.0) % Baso % (Auto) (0.0-2.0) % Neut # (Auto) (1.8-7.0) K/uL Lymph # (Auto) (1.0-4.3) K/uL [place] # (Auto) (0.0-0.8) K/uL Eos # (Auto) (0.0-0.7) K/uL Baso # (Auto) (0.0-0.2) K/uL Neutrophils % (Manual) (50-75) % Band Neutrophils % (0-2) % Lymphocytes % (Manual) (20-40) % Monocytes % (Manual) (0-10) % Platelet Estimate (NORMAL) Large Platelets Anisocytosis (manual) Puncture Site pCO2 (35-45) mm/Hg pO2 (80-100) mm/Hg HCO3 (21-28) mmol/L ABG pH (7.35-7.45) ABG Total CO2 (22-28) mmol/L ABG O2 Saturation (95-98) % ABG Base Excess (-2.0-3.0) mmol/L Jaciel Test ABG Potassium (3.6-5.2) mmol/L A-a O2 Difference mm/Hg Respiratory Index Glucose (75-110) mg/dl Lactate (0.7-2.1) mmol/L Liter Flow Vent Mode FiO2 % Sodium (132-148) mmol/L Potassium (3.6-5.2) mmol/L Chloride (98-107) mmol/L Carbon Dioxide (22-30) mmol/L Anion Gap (10-20) BUN (9-20) mg/dL Creatinine (0.8-1.5) mg/dL Est GFR ( Amer) Est GFR (Non-Af Amer) POC Glucose (mg/dL) 226 H 298 H (65-110) mg/dL Random Glucose (75-110) mg/dL Lactic Acid 1.1 (0.7-2.1) mmol/L Calcium (8.6-10.4) mg/dl Phosphorus (2.5-4.5) mg/dL Magnesium (1.6-2.3) mg/dL Total Bilirubin (0.2-1.3) mg/dL AST (17-59) U/L ALT (21-72) U/L Alkaline Phosphatase (38-126) U/L Ammonia (9-33) umol/L Total Protein (6.3-8.3) g/dL Albumin (3.5-5.0) g/dL Globulin (2.2-3.9) gm/dL Albumin/Globulin Ratio (1.0-2.1) Prolactin (3.7-17.9) ng/mL Arterial Blood Potassium (3.6-5.2) mmol/L 06/23/18 06/23/18 06/23/18 Range/Units 06:33 06:33 04:09 WBC 17.2 H (4.8-10.8) K/uL RBC 4.37 L (4.40-5.90) Mil/uL Hgb 12.7 D (12.0-18.0) g/dL Hct 38.3 (35.0-51.0) % MCV 87.7 D (80.0-94.0) fL MCH 29.0 (27.0-31.0) pg MCHC 33.1 (33.0-37.0) g/dL RDW 14.1 (11.5-14.5) % Plt Count 197 (130-400) K/uL MPV 10.8 (7.2-11.7) fL Neut % (Auto) 84.9 H (50.0-75.0) % Lymph % (Auto) 8.8 L (20.0-40.0) % Amador % (Auto) 5.5 (0.0-10.0) % Eos % (Auto) 0.0 (0.0-4.0) % Baso % (Auto) 0.8 (0.0-2.0) % Neut # (Auto) 14.6 H (1.8-7.0) K/uL Lymph # (Auto) 1.5 (1.0-4.3) K/uL [place] # (Auto) 0.9 H (0.0-0.8) K/uL Eos # (Auto) 0.0 (0.0-0.7) K/uL Baso # (Auto) 0.1 (0.0-0.2) K/uL Neutrophils % (Manual) 85 H (50-75) % Band Neutrophils % 1 (0-2) % Lymphocytes % (Manual) 6 L (20-40) % Monocytes % (Manual) 8 (0-10) % Platelet Estimate Normal (NORMAL) Large Platelets Present Anisocytosis (manual) Slight Puncture Site pCO2 (35-45) mm/Hg pO2 (80-100) mm/Hg HCO3 (21-28) mmol/L ABG pH (7.35-7.45) ABG Total CO2 (22-28) mmol/L ABG O2 Saturation (95-98) % ABG Base Excess (-2.0-3.0) mmol/L Jaciel Test ABG Potassium (3.6-5.2) mmol/L A-a O2 Difference mm/Hg Respiratory Index Glucose (75-110) mg/dl Lactate (0.7-2.1) mmol/L Liter Flow Vent Mode FiO2 % Sodium 142 (132-148) mmol/L Potassium 4.5 (3.6-5.2) mmol/L Chloride 107 (98-107) mmol/L Carbon Dioxide 18 L (22-30) mmol/L Anion Gap 21 H (10-20) BUN 60 H (9-20) mg/dL Creatinine 3.9 H (0.8-1.5) mg/dL Est GFR ( Amer) 18 Est GFR (Non-Af Amer) 15 POC Glucose (mg/dL) 311 H (65-110) mg/dL Random Glucose 350 H (75-110) mg/dL Lactic Acid (0.7-2.1) mmol/L Calcium 8.5 L (8.6-10.4) mg/dl Phosphorus 3.5 (2.5-4.5) mg/dL Magnesium 2.1 (1.6-2.3) mg/dL Total Bilirubin 0.5 (0.2-1.3) mg/dL AST 35 (17-59) U/L ALT 18 L D (21-72) U/L Alkaline Phosphatase 102 (38-126) U/L Ammonia (9-33) umol/L Total Protein 6.6 (6.3-8.3) g/dL Albumin 3.3 L D (3.5-5.0) g/dL Globulin 3.3 (2.2-3.9) gm/dL Albumin/Globulin Ratio 1.0 (1.0-2.1) Prolactin (3.7-17.9) ng/mL Arterial Blood Potassium (3.6-5.2) mmol/L 06/23/18 06/23/18 06/22/18 Range/Units 01:59 00:12 19:45 WBC (4.8-10.8) K/uL RBC (4.40-5.90) Mil/uL Hgb (12.0-18.0) g/dL Hct (35.0-51.0) % MCV (80.0-94.0) fL MCH (27.0-31.0) pg MCHC (33.0-37.0) g/dL RDW (11.5-14.5) % Plt Count (130-400) K/uL MPV (7.2-11.7) fL Neut % (Auto) (50.0-75.0) % Lymph % (Auto) (20.0-40.0) % Amador % (Auto) (0.0-10.0) % Eos % (Auto) (0.0-4.0) % Baso % (Auto) (0.0-2.0) % Neut # (Auto) (1.8-7.0) K/uL Lymph # (Auto) (1.0-4.3) K/uL [place] # (Auto) (0.0-0.8) K/uL Eos # (Auto) (0.0-0.7) K/uL Baso # (Auto) (0.0-0.2) K/uL Neutrophils % (Manual) (50-75) % Band Neutrophils % (0-2) % Lymphocytes % (Manual) (20-40) % Monocytes % (Manual) (0-10) % Platelet Estimate (NORMAL) Large Platelets Anisocytosis (manual) Puncture Site pCO2 (35-45) mm/Hg pO2 (80-100) mm/Hg HCO3 (21-28) mmol/L ABG pH (7.35-7.45) ABG Total CO2 (22-28) mmol/L ABG O2 Saturation (95-98) % ABG Base Excess (-2.0-3.0) mmol/L Jaciel Test ABG Potassium (3.6-5.2) mmol/L A-a O2 Difference mm/Hg Respiratory Index Glucose (75-110) mg/dl Lactate (0.7-2.1) mmol/L Liter Flow Vent Mode FiO2 % Sodium (132-148) mmol/L Potassium (3.6-5.2) mmol/L Chloride (98-107) mmol/L Carbon Dioxide (22-30) mmol/L Anion Gap (10-20) BUN (9-20) mg/dL Creatinine (0.8-1.5) mg/dL Est GFR ( Amer) Est GFR (Non-Af Amer) POC Glucose (mg/dL) 301 H 303 H 177 H (65-110) mg/dL Random Glucose (75-110) mg/dL Lactic Acid (0.7-2.1) mmol/L Calcium (8.6-10.4) mg/dl Phosphorus (2.5-4.5) mg/dL Magnesium (1.6-2.3) mg/dL Total Bilirubin (0.2-1.3) mg/dL AST (17-59) U/L ALT (21-72) U/L Alkaline Phosphatase (38-126) U/L Ammonia (9-33) umol/L Total Protein (6.3-8.3) g/dL Albumin (3.5-5.0) g/dL Globulin (2.2-3.9) gm/dL Albumin/Globulin Ratio (1.0-2.1) Prolactin (3.7-17.9) ng/mL Arterial Blood Potassium (3.6-5.2) mmol/L 06/22/18 06/22/18 06/22/18 Range/Units 17:50 17:36 17:13 WBC (4.8-10.8) K/uL RBC (4.40-5.90) Mil/uL Hgb (12.0-18.0) g/dL Hct (35.0-51.0) % MCV (80.0-94.0) fL MCH (27.0-31.0) pg MCHC (33.0-37.0) g/dL RDW (11.5-14.5) % Plt Count (130-400) K/uL MPV (7.2-11.7) fL Neut % (Auto) (50.0-75.0) % Lymph % (Auto) (20.0-40.0) % Amador % (Auto) (0.0-10.0) % Eos % (Auto) (0.0-4.0) % Baso % (Auto) (0.0-2.0) % Neut # (Auto) (1.8-7.0) K/uL Lymph # (Auto) (1.0-4.3) K/uL [place] # (Auto) (0.0-0.8) K/uL Eos # (Auto) (0.0-0.7) K/uL Baso # (Auto) (0.0-0.2) K/uL Neutrophils % (Manual) (50-75) % Band Neutrophils % (0-2) % Lymphocytes % (Manual) (20-40) % Monocytes % (Manual) (0-10) % Platelet Estimate (NORMAL) Large Platelets Anisocytosis (manual) Puncture Site pCO2 (35-45) mm/Hg pO2 (80-100) mm/Hg HCO3 (21-28) mmol/L ABG pH (7.35-7.45) ABG Total CO2 (22-28) mmol/L ABG O2 Saturation (95-98) % ABG Base Excess (-2.0-3.0) mmol/L Jaciel Test ABG Potassium (3.6-5.2) mmol/L A-a O2 Difference mm/Hg Respiratory Index Glucose (75-110) mg/dl Lactate (0.7-2.1) mmol/L Liter Flow Vent Mode FiO2 % Sodium 145 (132-148) mmol/L Potassium 3.5 L (3.6-5.2) mmol/L Chloride 109 H (98-107) mmol/L Carbon Dioxide 19 L (22-30) mmol/L Anion Gap 20 (10-20) BUN 50 H (9-20) mg/dL Creatinine 3.5 H (0.8-1.5) mg/dL Est GFR ( Amer) 21 Est GFR (Non-Af Amer) 17 POC Glucose (mg/dL) 152 H 49 L (65-110) mg/dL Random Glucose 206 H (75-110) mg/dL Lactic Acid (0.7-2.1) mmol/L Calcium 8.9 (8.6-10.4) mg/dl Phosphorus (2.5-4.5) mg/dL Magnesium (1.6-2.3) mg/dL Total Bilirubin (0.2-1.3) mg/dL AST (17-59) U/L ALT (21-72) U/L Alkaline Phosphatase (38-126) U/L Ammonia (9-33) umol/L Total Protein (6.3-8.3) g/dL Albumin (3.5-5.0) g/dL Globulin (2.2-3.9) gm/dL Albumin/Globulin Ratio (1.0-2.1) Prolactin (3.7-17.9) ng/mL Arterial Blood Potassium (3.6-5.2) mmol/L 06/22/18 06/22/18 Range/Units 17:10 16:15 WBC (4.8-10.8) K/uL RBC (4.40-5.90) Mil/uL Hgb (12.0-18.0) g/dL Hct (35.0-51.0) % MCV (80.0-94.0) fL MCH (27.0-31.0) pg MCHC (33.0-37.0) g/dL RDW (11.5-14.5) % Plt Count (130-400) K/uL MPV (7.2-11.7) fL Neut % (Auto) (50.0-75.0) % Lymph % (Auto) (20.0-40.0) % Am[place] % (Auto) (0.0-10.0) % Eos % (Auto) (0.0-4.0) % Baso % (Auto) (0.0-2.0) % Neut # (Auto) (1.8-7.0) K/uL Lymph # (Auto) (1.0-4.3) K/uL [place] # (Auto) (0.0-0.8) K/uL Eos # (Auto) (0.0-0.7) K/uL Baso # (Auto) (0.0-0.2) K/uL Neutrophils % (Manual) (50-75) % Band Neutrophils % (0-2) % Lymphocytes % (Manual) (20-40) % Monocytes % (Manual) (0-10) % Platelet Estimate (NORMAL) Large Platelets Anisocytosis (manual) Puncture Site pCO2 (35-45) mm/Hg pO2 (80-100) mm/Hg HCO3 (21-28) mmol/L ABG pH (7.35-7.45) ABG Total CO2 (22-28) mmol/L ABG O2 Saturation (95-98) % ABG Base Excess (-2.0-3.0) mmol/L Jaciel Test ABG Potassium (3.6-5.2) mmol/L A-a O2 Difference mm/Hg Respiratory Index Glucose (75-110) mg/dl Lactate (0.7-2.1) mmol/L Liter Flow Vent Mode FiO2 % Sodium (132-148) mmol/L Potassium (3.6-5.2) mmol/L Chloride (98-107) mmol/L Carbon Dioxide (22-30) mmol/L Anion Gap (10-20) BUN (9-20) mg/dL Creatinine (0.8-1.5) mg/dL Est GFR ( Amer) Est GFR (Non-Af Amer) POC Glucose (mg/dL) 69 138 H (65-110) mg/dL Random Glucose (75-110) mg/dL Lactic Acid (0.7-2.1) mmol/L Calcium (8.6-10.4) mg/dl Phosphorus (2.5-4.5) mg/dL Magnesium (1.6-2.3) mg/dL Total Bilirubin (0.2-1.3) mg/dL AST (17-59) U/L ALT (21-72) U/L Alkaline Phosphatase (38-126) U/L Ammonia (9-33) umol/L Total Protein (6.3-8.3) g/dL Albumin (3.5-5.0) g/dL Globulin (2.2-3.9) gm/dL Albumin/Globulin Ratio (1.0-2.1) Prolactin (3.7-17.9) ng/mL Arterial Blood Potassium (3.6-5.2) mmol/L Laboratory Results - last 24 hr 06/22/18 06/22/18 06/22/18 16:15 17:10 17:13 WBC RBC Hgb Hct MCV MCH MCHC RDW Plt Count MPV Neut % (Auto) Lymph % (Auto) Amador % (Auto) Eos % (Auto) Baso % (Auto) Neut # (Auto) Lymph # (Auto) [place] # (Auto) Eos # (Auto) Baso # (Auto) Neutrophils % (Manual) Band Neutrophils % Lymphocytes % (Manual) Monocytes % (Manual) Platelet Estimate Large Platelets Anisocytosis (manual) Puncture Site pCO2 pO2 HCO3 ABG pH ABG Total CO2 ABG O2 Saturation ABG Base Excess Jaciel Test ABG Potassium A-a O2 Difference Respiratory Index Glucose Lactate Liter Flow Vent Mode FiO2 Sodium Potassium Chloride Carbon Dioxide Anion Gap BUN Creatinine Est GFR ( Amer) Est GFR (Non-Af Amer) POC Glucose (mg/dL) 138 H 69 49 L Random Glucose Lactic Acid Calcium Phosphorus Magnesium Total Bilirubin AST ALT Alkaline Phosphatase Ammonia Total Protein Albumin Globulin Albumin/Globulin Ratio Prolactin Arterial Blood Potassium 06/22/18 06/22/18 06/22/18 17:36 17:50 19:45 WBC RBC Hgb Hct MCV MCH MCHC RDW Plt Count MPV Neut % (Auto) Lymph % (Auto) [place] % (Auto) Eos % (Auto) Baso % (Auto) Neut # (Auto) Lymph # (Auto) [place] # (Auto) Eos # (Auto) Baso # (Auto) Neutrophils % (Manual) Band Neutrophils % Lymphocytes % (Manual) Monocytes % (Manual) Platelet Estimate Large Platelets Anisocytosis (manual) Puncture Site pCO2 pO2 HCO3 ABG pH ABG Total CO2 ABG O2 Saturation ABG Base Excess Jaciel Test ABG Potassium A-a O2 Difference Respiratory Index Glucose Lactate Liter Flow Vent Mode FiO2 Sodium 145 Potassium 3.5 L Chloride 109 H Carbon Dioxide 19 L Anion Gap 20 BUN 50 H Creatinine 3.5 H Est GFR ( Amer) 21 Est GFR (Non-Af Amer) 17 POC Glucose (mg/dL) 152 H 177 H Random Glucose 206 H Lactic Acid Calcium 8.9 Phosphorus Magnesium Total Bilirubin AST ALT Alkaline Phosphatase Ammonia Total Protein Albumin Globulin Albumin/Globulin Ratio Prolactin Arterial Blood Potassium 06/23/18 06/23/18 06/23/18 00:12 01:59 04:09 WBC RBC Hgb Hct MCV MCH MCHC RDW Plt Count MPV Neut % (Auto) Lymph % (Auto) [place] % (Auto) Eos % (Auto) Baso % (Auto) Neut # (Auto) Lymph # (Auto) [place] # (Auto) Eos # (Auto) Baso # (Auto) Neutrophils % (Manual) Band Neutrophils % Lymphocytes % (Manual) Monocytes % (Manual) Platelet Estimate Large Platelets Anisocytosis (manual) Puncture Site pCO2 pO2 HCO3 ABG pH ABG Total CO2 ABG O2 Saturation ABG Base Excess Jaciel Test ABG Potassium A-a O2 Difference Respiratory Index Glucose Lactate Liter Flow Vent Mode FiO2 Sodium Potassium Chloride Carbon Dioxide Anion Gap BUN Creatinine Est GFR ( Amer) Est GFR (Non-Af Amer) POC Glucose (mg/dL) 303 H 301 H 311 H Random Glucose Lactic Acid Calcium Phosphorus Magnesium Total Bilirubin AST ALT Alkaline Phosphatase Ammonia Total Protein Albumin Globulin Albumin/Globulin Ratio Prolactin Arterial Blood Potassium 06/23/18 06/23/18 06/23/18 06:33 06:33 07:34 WBC 17.2 H RBC 4.37 L Hgb 12.7 D Hct 38.3 MCV 87.7 D MCH 29.0 MCHC 33.1 RDW 14.1 Plt Count 197 MPV 10.8 Neut % (Auto) 84.9 H Lymph % (Auto) 8.8 L [place] % (Auto) 5.5 Eos % (Auto) 0.0 Baso % (Auto) 0.8 Neut # (Auto) 14.6 H Lymph # (Auto) 1.5 [place] # (Auto) 0.9 H Eos # (Auto) 0.0 Baso # (Auto) 0.1 Neutrophils % (Manual) 85 H Band Neutrophils % 1 Lymphocytes % (Manual) 6 L Monocytes % (Manual) 8 Platelet Estimate Normal Large Platelets Present Anisocytosis (manual) Slight Puncture Site pCO2 pO2 HCO3 ABG pH ABG Total CO2 ABG O2 Saturation ABG Base Excess Jaciel Test ABG Potassium A-a O2 Difference Respiratory Index Glucose Lactate Liter Flow Vent Mode FiO2 Sodium 142 Potassium 4.5 Chloride 107 Carbon Dioxide 18 L Anion Gap 21 H BUN 60 H Creatinine 3.9 H Est GFR ( Amer) 18 Est GFR (Non-Af Amer) 15 POC Glucose (mg/dL) 298 H Random Glucose 350 H Lactic Acid Calcium 8.5 L Phosphorus 3.5 Magnesium 2.1 Total Bilirubin 0.5 AST 35 ALT 18 L D Alkaline Phosphatase 102 Ammonia Total Protein 6.6 Albumin 3.3 L D Globulin 3.3 Albumin/Globulin Ratio 1.0 Prolactin Arterial Blood Potassium 06/23/18 06/23/18 06/23/18 07:48 11:49 12:05 WBC RBC Hgb Hct MCV MCH MCHC RDW Plt Count MPV Neut % (Auto) Lymph % (Auto) [place] % (Auto) Eos % (Auto) Baso % (Auto) Neut # (Auto) Lymph # (Auto) Amador # (Auto) Eos # (Auto) Baso # (Auto) Neutrophils % (Manual) Band Neutrophils % Lymphocytes % (Manual) Monocytes % (Manual) Platelet Estimate Large Platelets Anisocytosis (manual) Puncture Site Rb pCO2 35 pO2 83 HCO3 21.9 ABG pH 7.38 ABG Total CO2 21.8 L ABG O2 Saturation 98.3 H ABG Base Excess -3.8 L Jaciel Test Na ABG Potassium 4.1 A-a O2 Difference 101.0 Respiratory Index 1.2 Glucose 245 H Lactate 0.8 Liter Flow 3.0 Vent Mode Nasal cannula FiO2 32.0 Sodium 142.0 Potassium Chloride 115.0 H Carbon Dioxide Anion Gap BUN Creatinine Est GFR ( Amer) Est GFR (Non-Af Amer) POC Glucose (mg/dL) 226 H Random Glucose Lactic Acid 1.1 Calcium Phosphorus Magnesium Total Bilirubin AST ALT Alkaline Phosphatase Ammonia Total Protein Albumin Globulin Albumin/Globulin Ratio Prolactin Arterial Blood Potassium 4.1 06/23/18 06/23/18 15:23 15:23 WBC RBC Hgb Hct MCV MCH MCHC RDW Plt Count MPV Neut % (Auto) Lymph % (Auto) Amador % (Auto) Eos % (Auto) Baso % (Auto) Neut # (Auto) Lymph # (Auto) Amador # (Auto) Eos # (Auto) Baso # (Auto) Neutrophils % (Manual) Band Neutrophils % Lymphocytes % (Manual) Monocytes % (Manual) Platelet Estimate Large Platelets Anisocytosis (manual) Puncture Site pCO2 pO2 HCO3 ABG pH ABG Total CO2 ABG O2 Saturation ABG Base Excess Jaciel Test ABG Potassium A-a O2 Difference Respiratory Index Glucose Lactate Liter Flow Vent Mode FiO2 Sodium Potassium Chloride Carbon Dioxide Anion Gap BUN Creatinine Est GFR ( Amer) Est GFR (Non-Af Amer) POC Glucose (mg/dL) Random Glucose Lactic Acid Calcium Phosphorus Magnesium Total Bilirubin AST ALT Alkaline Phosphatase Ammonia 14 Total Protein Albumin Globulin Albumin/Globulin Ratio Prolactin 21.3 H Arterial Blood Potassium Fingerstick Blood Sugar Results: 226 Review of Systems - Review of Systems Systems not reviewed;Unavailable: Altered Mental Status Critical Care Progress Note - Nutrition Nutrition: Nutrition Category Date Time Status Renal Diet [DIET] Diets 06/23/18 Lunch Active Assessment/Plan (1) Altered mental status Assessment and plan: Patient is a 78 year old male with past medical history of HTN, T2DM, h ypercholesterolemia, hyperthyroidism, gastritis, renal failure, [place] presenting to ED with chief complaint of altered mental status with agitated and combative behavior, and was admitted to ICU for management of sepsis and DKA. Plan: Neuro: - Agitated, not following commands - Head CT shows mild diffuse/confluent chronic periventricular white matter ischemic changes seen extending peripherally into the deep and subcortical white matter. Chronic lacunar type infarct right thalamus, both basal nuclei. Mild chronic brainstem lacunar type infarcts. - Precedex - 25 mg fentanyl IV given once with good response, a lot of patient's delirium is exacerbated by pain. - Neurology consulted. Appreciate recs. Skel: obtained CT without contrast of knee joints and lumbosacral spine, no evidence of abscesses or joint infection. Pulm: - CXR shows slight increased pulmonary vascularity, mild bibasilar atelectasis, cardiomegaly - maintain SPO2> 92 % CV: - maintain MAP> 65 - continue home Cardizem 180 mg PO daily, Cozaar 25 mg PO daily, Plavix 75 mg daily, Aspirin 81 mg daily, Metoprolol 25 mg PO daily GI: - swallow eval - Pepcid 20 mg PO dialy Renal: - Cr 3.5 - UA shows 2+ protein, 3+ glucose, 2+ blood, 30 RBCs - continue home tamsulosin 0.4 mg - monitor I and Os - monitor and replete electrolytes Endo: DKA/HHS resolved, now off of insulin drip, on sliding scale Heme: - monitor H&H - continue home ferrous sulfate 325 mg PO daily ID: - Temperature on admission 102.6, WBCs 15.2 - Code sepsis called - Flu negative - Followup blood cultures, urine cultures - ID consulted. Appreciate recs. - Rocephin 2 gm IV daily PPX: Pepcid 20 mg PO daily, Heparin 5000 units SC Q8H, SCDS Critical Care Time spent 35 minutes Multi-disciplinary rounds were performed with house staff, nursing, speech therapy, respiratory therapy, pharmacy and nutrition with integrated input from the primary team/attending and other consulting services. The documented time is cumulative and includes review of patient data/exams/labs/chart review and examination of the patient on rounds and throughout the day; time is exclusive of any procedures or teaching time. Current Visit: Yes Status: Acute
--- NOTE | 2018-06-23 16:25 | CT ---
Date of service: 06/23/2018 PROCEDURE: CT scan of the lower extremities. HISTORY: Septic joint. COMPARISON: TECHNIQUE: Contiguous helical/transaxial sections of the lower extremities were performed from just above the level of the thighs inferiorly to midfoot region without contrast. Additional 2D sagittal and coronal reformats generated. Radiation dose: Total DLP = 707.59 mGy-cm. FINDINGS: The current study reveals no evidence of acute displaced fracture nor dislocation. The osseous structures are intact. There are no cortical destructive changes.. Trace joint effusions are felt to be present left slightly larger than right of though nonspecific. There are no soft tissue of soft tissue phlegmon formation fluid or abscess collections.. No evidence of subcutaneous emphysema. If further evaluation for septic joint or early osteomyelitis suspected clinically, consider follow-up MRI. IMPRESSION: No evidence of phlegmon formation or abscess collections. Suspect trace joint effusions left-side slightly larger than right though nonspecific. There are no cortical destructive changes. No evidence of acute displaced fracture nor dislocation. Consider follow-up MRI if early septic joint or osteomyelitis suspected clinically
[2018-06-23] MEDS: cefTRIAXone 2 GM in Sodium Chloride 0.9% 100 ML IVPB SCH (18:15)
[2018-06-23] MEDS: Sodium Chloride 0.9% 1,000 ML IV SCH (18:23)
--- NOTE | 2018-06-23 19:27 | CP.PCM.PN ---
Subjective - Date & Time of Evaluation Date of Evaluation: 06/23/18 Time of Evaluation: 15:00 - Subjective Subjective: dictated Objective - Vital Signs/Intake and Output Vital Signs (last 24 hours): Temp Pulse Resp BP Pulse Ox 99 F 60 20 118/64 99 06/23/18 16:00 06/23/18 19:01 06/23/18 19:01 06/23/18 19:01 06/23/18 19:01 Intake and Output: 06/23/18 06/24/18 18:59 06:59 Intake Total 987.1 Output Total 550 Balance 437.1 - Medications Medications: Current Medications Aspirin (Ecotrin) 81 mg PO DAILY [facility] Last Admin: 06/23/18 18:12 Dose: Not Given Clopidogrel Bisulfate (Plavix) 75 mg PO DAILY [facility] Last Admin: 06/23/18 18:15 Dose: Not Given Diltiazem HCl (Cardizem Cd) 180 mg PO DAILY [facility] Last Admin: 06/23/18 10:41 Dose: Not Given Famotidine (Pepcid) 20 mg PO DAILY [facility] Last Admin: 06/23/18 12:56 Dose: 20 mg Ferrous Sulfate (Feosol) 325 mg PO DAILY [facility] Last Admin: 06/23/18 12:51 Dose: 325 mg Heparin Sodium (Porcine) (Heparin) 5,000 units SC Q8 [facility] Last Admin: 06/23/18 13:00 Dose: 5,000 units Home Med (Febuxostat [Uloric]) 40 mg PO DAILY [facility] Dexmedetomidine HCl 200 mcg/ (Sodium Chloride) 50 mls @ 3.86 mls/hr IV TITR PRN; Protocol PRN Reason: Agitation Last Titration: 06/23/18 15:40 Dose: 0 mcg/kg/hr, 0 mls/hr Ceftriaxone Sodium 2 gm/ (Sodium Chloride) 100 mls @ 100 mls/hr IVPB Q24H [facility]; Protocol Last Admin: 06/23/18 18:15 Dose: 100 mls/hr Sodium Chloride (Sodium Chloride 0.9%) 1,000 mls @ 50 mls/hr IV .Q20H [facility] Last Admin: 06/23/18 18:23 Dose: 50 mls/hr Insulin Aspart (Novolog) 0 unit SC Q4H [facility]; Protocol Last Admin: 06/23/18 18:15 Dose: 6 units Levothyroxine Sodium (Synthroid) 50 mcg PO DAILY [facility] Last Admin: 06/23/18 12:52 Dose: 50 mcg Losartan Potassium (Cozaar) 25 mg PO DAILY [facility] Last Admin: 06/23/18 12:52 Dose: 25 mg Metoprolol Succinate (Toprol Xl) 25 mg PO DAILY [facility] Last Admin: 06/23/18 10:43 Dose: Not Given Sevelamer Carbonate (Renvela) 800 mg PO TIDCC [facility] Last Admin: 06/23/18 18:14 Dose: 800 mg Tamsulosin HCl (Flomax) 0.4 mg PO DAILY [facility] Last Admin: 06/23/18 12:51 Dose: 0.4 mg - Labs Labs: 06/23/18 06:33 06/23/18 06:33 PT 11.0 SECONDS (9.7-12.2) 06/22/18 09:29 INR 1.0 06/22/18 09:29 APTT 32 SECONDS (21-34) 06/22/18 09:29
[2018-06-24] MEDS: (Novolog) Insulin Aspart, Recombinant 100 u/ml 10 ml vial SC SCH ×6 (00:39→21:48)
[2018-06-24 05:54] LABS: BASO # 0.1 K/uL (0.0-0.2); BASO % 0.5 % (0.0-2.0); EOS # 0.3 K/uL (0.0-0.7); EOS % 1.7 % (0.0-4.0); HEMOGLOBIN 12.6 g/dL (12.0-18.0); LYMPH # 1.9 K/uL (1.0-4.3); LYMPH % 12.4 % (20.0-40.0); MEAN CELL VOLUME 87.2 fL (80.0-94.0); MEAN CORPUSCULAR HEMOGLOBIN 29.4 pg (27.0-31.0); MEAN CORPUSCULAR HGB CONC 33.8 g/dL (33.0-37.0); MEAN PLATELET VOLUME 9.8 fL (7.2-11.7); MONO # 1.1 K/uL (0.0-0.8); MONO % 7.5 % (0.0-10.0); NEUT # 11.7 K/uL (1.8-7.0); NEUT % 77.9 % (50.0-75.0); NRBC % 0.1 % (0.0-2.0); RBC 4.26 Mil/uL (4.40-5.90); RED CELL DISTRIBUTION WIDTH 14.3 % (11.5-14.5); WHITE BLOOD COUNT 15.1 K/uL (4.8-10.8)
--- NOTE | 2018-06-24 07:14 | CP.PCM.CON ---
History of Present Illness - History of Present Illness History of Present Illness: CONSULTATION DICTATED [place] HYPOPERFUSION /METABOLIC/TOXIC MENTATION BACK TO HIS BASELINE MILD SENSORY MOTOR NEUROPATHY KEEP MAP AROUND 100 EEG -R/O PAROXYSMAL ACTIVITIES OR FOCAL SLOW MRI BRAIN WHEN MEDICALLY STABLE Past Patient History - Infectious Disease Hx of Infectious Diseases: None - Past Medical History & Family History Past Medical History?: Yes - Past Social History Smoking Status: Former Smoker - CARDIAC Hx Hypertension: Yes - NEUROLOGICAL Other/Comment: alzheimers?? dementia??? - ENDOCRINE/METABOLIC Hx Diabetes Mellitus Type 2: Yes - MUSCULOSKELETAL/RHEUMATOLOGICAL Hx Falls: No - PSYCHIATRIC Hx Substance Use: No - ANESTHESIA Hx Anesthesia: No Meds Allergies/Adverse Reactions: Allergies Allergy/AdvReac Type Severity Reaction Status Date / Time No Known Allergies Allergy Verified 06/22/18 09:05 - Medications Medications: Current Medications Aspirin (Ecotrin) 81 mg PO DAILY [facility] Last Admin: 06/23/18 18:12 Dose: Not Given Clopidogrel Bisulfate (Plavix) 75 mg PO DAILY [facility] Last Admin: 06/23/18 18:15 Dose: Not Given Diltiazem HCl (Cardizem Cd) 180 mg PO DAILY [facility] Last Admin: 06/23/18 10:41 Dose: Not Given Famotidine (Pepcid) 20 mg PO DAILY [facility] Last Admin: 06/23/18 12:56 Dose: 20 mg Ferrous Sulfate (Feosol) 325 mg PO DAILY [facility] Last Admin: 06/23/18 12:51 Dose: 325 mg Heparin Sodium (Porcine) (Heparin) 5,000 units SC Q8 [facility] Last Admin: 06/24/18 05:46 Dose: 5,000 units Home Med (Febuxostat [Uloric]) 40 mg PO DAILY [facility] Dexmedetomidine HCl 200 mcg/ (Sodium Chloride) 50 mls @ 3.86 mls/hr IV TITR PRN; Protocol PRN Reason: Agitation Last Titration: 06/23/18 15:40 Dose: 0 mcg/kg/hr, 0 mls/hr Ceftriaxone Sodium 2 gm/ (Sodium Chloride) 100 mls @ 100 mls/hr IVPB Q24H [facility]; Protocol Last Admin: 06/23/18 18:15 Dose: 100 mls/hr Sodium Chloride (Sodium Chloride 0.9%) 1,000 mls @ 50 mls/hr IV .Q20H [facility] Last Admin: 06/23/18 18:23 Dose: 50 mls/hr Insulin Aspart (Novolog) 0 unit SC Q4H [facility]; Protocol Last Admin: 06/24/18 05:47 Dose: 2 units Levothyroxine Sodium (Synthroid) 50 mcg PO DAILY [facility] Last Admin: 06/23/18 12:52 Dose: 50 mcg Losartan Potassium (Cozaar) 25 mg PO DAILY [facility] Last Admin: 06/23/18 12:52 Dose: 25 mg Metoprolol Succinate (Toprol Xl) 25 mg PO DAILY [facility] Last Admin: 06/23/18 10:43 Dose: Not Given Sevelamer Carbonate (Renvela) 800 mg PO TIDCC [facility] Last Admin: 06/23/18 18:14 Dose: 800 mg Tamsulosin HCl (Flomax) 0.4 mg PO DAILY [facility] Last Admin: 06/23/18 12:51 Dose: 0.4 mg Results - Vital Signs Recent Vital Signs: Last Vital Signs Temp 98 F 06/24/18 04:00 Pulse 89 06/24/18 06:00 Resp 17 06/24/18 06:00 BP 152/72 H 06/24/18 05:01 Pulse Ox 99 06/24/18 06:00 - Labs Result Diagrams: 06/24/18 05:39 06/23/18 06:33 Labs: Laboratory Results - last 24 hr 06/23/18 06/23/18 06/23/18 04:09 06:33 06:33 WBC RBC Hgb Hct MCV MCH MCHC RDW Plt Count MPV Neut % (Auto) Lymph % (Auto) Mercer % (Auto) Eos % (Auto) Baso % (Auto) Neut # (Auto) Lymph # (Auto) Mercer # (Auto) Eos # (Auto) Baso # (Auto) Neutrophils % (Manual) 85 H Band Neutrophils % 1 Lymphocytes % (Manual) 6 L Monocytes % (Manual) 8 Platelet Estimate Normal Large Platelets Present Anisocytosis (manual) Slight Puncture Site pCO2 pO2 HCO3 ABG pH ABG Total CO2 ABG O2 Saturation ABG Base Excess Jaciel Test ABG Potassium A-a O2 Difference Respiratory Index Glucose Lactate Liter Flow Vent Mode FiO2 Sodium 142 Potassium 4.5 Chloride 107 Carbon Dioxide 18 L Anion Gap 21 H BUN 60 H Creatinine 3.9 H Est GFR ( Amer) 18 Est GFR (Non-Af Amer) 15 POC Glucose (mg/dL) 311 H Random Glucose 350 H Lactic Acid Calcium 8.5 L Phosphorus 3.5 Magnesium 2.1 Total Bilirubin 0.5 AST 35 ALT 18 L D Alkaline Phosphatase 102 Ammonia Total Protein 6.6 Albumin 3.3 L D Globulin 3.3 Albumin/Globulin Ratio 1.0 Prolactin Arterial Blood Potassium 06/23/18 06/23/18 06/23/18 07:34 07:48 11:49 WBC RBC Hgb Hct MCV MCH MCHC RDW Plt Count MPV Neut % (Auto) Lymph % (Auto) Mercer % (Auto) Eos % (Auto) Baso % (Auto) Neut # (Auto) Lymph # (Auto) Mercer # (Auto) Eos # (Auto) Baso # (Auto) Neutrophils % (Manual) Band Neutrophils % Lymphocytes % (Manual) Monocytes % (Manual) Platelet Estimate Large Platelets Anisocytosis (manual) Puncture Site pCO2 pO2 HCO3 ABG pH ABG Total CO2 ABG O2 Saturation ABG Base Excess Jaciel Test ABG Potassium A-a O2 Difference Respiratory Index Glucose Lactate Liter Flow Vent Mode FiO2 Sodium Potassium Chloride Carbon Dioxide Anion Gap BUN Creatinine Est GFR ( Amer) Est GFR (Non-Af Amer) POC Glucose (mg/dL) 298 H 226 H Random Glucose Lactic Acid 1.1 Calcium Phosphorus Magnesium Total Bilirubin AST ALT Alkaline Phosphatase Ammonia Total Protein Albumin Globulin Albumin/Globulin Ratio Prolactin Arterial Blood Potassium 06/23/18 06/23/18 06/23/18 12:05 15:23 15:23 WBC RBC Hgb Hct MCV MCH MCHC RDW Plt Count MPV Neut % (Auto) Lymph % (Auto) Mercer % (Auto) Eos % (Auto) Baso % (Auto) Neut # (Auto) Lymph # (Auto) Mercer # (Auto) Eos # (Auto) Baso # (Auto) Neutrophils % (Manual) Band Neutrophils % Lymphocytes % (Manual) Monocytes % (Manual) Platelet Estimate Large Platelets Anisocytosis (manual) Puncture Site Rb pCO2 35 pO2 83 HCO3 21.9 ABG pH 7.38 ABG Total CO2 21.8 L ABG O2 Saturation 98.3 H ABG Base Excess -3.8 L Jaciel Test Na ABG Potassium 4.1 A-a O2 Difference 101.0 Respiratory Index 1.2 Glucose 245 H Lactate 0.8 Liter Flow 3.0 Vent Mode Nasal cannula FiO2 32.0 Sodium 142.0 Potassium Chloride 115.0 H Carbon Dioxide Anion Gap BUN Creatinine Est GFR ( Amer) Est GFR (Non-Af Amer) POC Glucose (mg/dL) Random Glucose Lactic Acid Calcium Phosphorus Magnesium Total Bilirubin AST ALT Alkaline Phosphatase Ammonia 14 Total Protein Albumin Globulin Albumin/Globulin Ratio Prolactin 21.3 H Arterial Blood Potassium 4.1 06/23/18 06/23/18 06/24/18 16:27 19:31 00:17 WBC RBC Hgb Hct MCV MCH MCHC RDW Plt Count MPV Neut % (Auto) Lymph % (Auto) Mercer % (Auto) Eos % (Auto) Baso % (Auto) Neut # (Auto) Lymph # (Auto) Mercer # (Auto) Eos # (Auto) Baso # (Auto) Neutrophils % (Manual) Band Neutrophils % Lymphocytes % (Manual) Monocytes % (Manual) Platelet Estimate Large Platelets Anisocytosis (manual) Puncture Site pCO2 pO2 HCO3 ABG pH ABG Total CO2 ABG O2 Saturation ABG Base Excess Jaciel Test ABG Potassium A-a O2 Difference Respiratory Index Glucose Lactate Liter Flow Vent Mode FiO2 Sodium Potassium Chloride Carbon Dioxide Anion Gap BUN Creatinine Est GFR ( Amer) Est GFR (Non-Af Amer) POC Glucose (mg/dL) 256 H 348 H 206 H Random Glucose Lactic Acid Calcium Phosphorus Magnesium Total Bilirubin AST ALT Alkaline Phosphatase Ammonia Total Protein Albumin Globulin Albumin/Globulin Ratio Prolactin Arterial Blood Potassium 06/24/18 05:39 WBC 15.1 H RBC 4.26 L Hgb 12.6 Hct 37.2 MCV 87.2 MCH 29.4 MCHC 33.8 RDW 14.3 Plt Count 174 MPV 9.8 Neut % (Auto) 77.9 H Lymph % (Auto) 12.4 L Mercer % (Auto) 7.5 Eos % (Auto) 1.7 Baso % (Auto) 0.5 Neut # (Auto) 11.7 H Lymph # (Auto) 1.9 Mercer # (Auto) 1.1 H Eos # (Auto) 0.3 Baso # (Auto) 0.1 Neutrophils % (Manual) Band Neutrophils % Lymphocytes % (Manual) Monocytes % (Manual) Platelet Estimate Large Platelets Anisocytosis (manual) Puncture Site pCO2 pO2 HCO3 ABG pH ABG Total CO2 ABG O2 Saturation ABG Base Excess Jaciel Test ABG Potassium A-a O2 Difference Respiratory Index Glucose Lactate Liter Flow Vent Mode FiO2 Sodium Potassium Chloride Carbon Dioxide Anion Gap BUN Creatinine Est GFR ( Amer) Est GFR (Non-Af Amer) POC Glucose (mg/dL) Random Glucose Lactic Acid Calcium Phosphorus Magnesium Total Bilirubin AST ALT Alkaline Phosphatase Ammonia Total Protein Albumin Globulin Albumin/Globulin Ratio Prolactin Arterial Blood Potassium
--- NOTE | 2018-06-24 07:24 | PN ---
DATE: 06/23/2018 SUBJECTIVE: The patient was seen today. His neighbor was feeding him, and seemed he was a little better. He was more alert. His was at the bedside, and she says she was hearing him as he was talking and he was being fed. His mental status has improved. It seems he was coherent and did not verbalize much. PHYSICAL EXAMINATION: VITAL SIGNS: T-max is 99, pulse was 50, blood pressure 112/53, and respirations are 21. HEENT: Head is atraumatic. NECK: Supple. LUNGS: Clear. HEART: S1, S2 are bradycardic. ABDOMEN: Soft and nontender. No guarding, no rigidity present. EXTREMITIES: Have no edema. LABORATORY DATA: Cultures have come back negative. I discontinued the CT of the chest, abdomen, and pelvis at this time because of his renal issues, but at this time, I have continued Rocephin. 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 Labs show white count is 17.2, hemoglobin 12.7, hematocrit 38.3, platelet count is 197, neutrophils are 84. He did come in with high sugars and creatinine has increased to 3.9, and I brought the sugar down, sugar is 256 now which is tolerable. His lactic acid is 1.1. ASSESSMENT AND PLAN: So, at this time, we will continue with Rocephin 2 g a day for now, pending echocardiogram reports and for covering him for sepsis as he did have hyperglycemia, and if no etiology is found, then probably I need to pursue with the CAT scans again. I would repeat the laboratories tomorrow. Johanne Arteaga MD
[2018-06-24] MEDS: diltiaZEM 180 mg/24 Hours CD Cap PO SCH (09:39)
[2018-06-24] MEDS: Metoprolol Succinate 25 mg XL Tab PO SCH (09:49)
[2018-06-24] MEDS: Levothyroxine 50 MCG TAB PO SCH ×2 (09:50→11:45)
[2018-06-24 11:23] LABS: BASO # 0.1 K/uL (0.0-0.2); BASO % 0.4 % (0.0-2.0); EOS # 0.1 K/uL (0.0-0.7); EOS % 0.8 % (0.0-4.0); HEMOGLOBIN 12.9 g/dL (12.0-18.0); LYMPH # 1.2 K/uL (1.0-4.3); MEAN CELL VOLUME 88.3 fL (80.0-94.0); MEAN CORPUSCULAR HEMOGLOBIN 29.2 pg (27.0-31.0); MEAN CORPUSCULAR HGB CONC 33.1 g/dL (33.0-37.0); MEAN PLATELET VOLUME 10.1 fL (7.2-11.7); MONO # 0.9 K/uL (0.0-0.8); MONO % 6.5 % (0.0-10.0); NEUT # 12.2 K/uL (1.8-7.0); NEUT % 84.3 % (50.0-75.0); PLATELET COUNT 191 K/uL (130-400); RBC 4.42 Mil/uL (4.40-5.90); RED CELL DISTRIBUTION WIDTH 14.2 % (11.5-14.5); WHITE BLOOD COUNT 14.5 K/uL (4.8-10.8)
[2018-06-24 11:57] LABS: ALBUMIN 3.3 g/dL (3.5-5.0); CALCIUM 8.1 mg/dl (8.6-10.4); URIC ACID 8.5 mg/dL (3.5-8.5)
[2018-06-24 12:27] LABS: EOSINOPHIL 1 % (0-4); LYMPHOCYTE 5 % (20-40); MONOCYTE 5 % (0-10); NEUTROPHIL 89 % (50-75); PLATELET ESTIMATE NORMAL (NORMAL); TOTAL CELLS COUNTED 100
[2018-06-24] MEDS ORDERED: (Novolog) Insulin Aspart, Recombinant 100 u/ml 10 ml vial SC ONE (12:30)
--- NOTE | 2018-06-24 12:47 | CP.CCUPN ---
CCU Subjective - Physician Review Subjective (Free Text): 06/24/18 12:38 Pt seen and examined at bedside. Pt reports a large bm last night. Pt denies cp sob f/c n/v abd pain CCU Objective - Vital Signs / Intake & Output Vital Signs (Last 4 hours): Vital Signs Pulse Resp BP Pulse Ox 06/24/18 11:01 81 15 06/24/18 11:00 81 20 141/62 97 06/24/18 10:00 81 19 150/70 98 06/24/18 09:01 93 H 19 06/24/18 09:00 85 18 101/55 L 97 Intake and Output (Last 8hrs): Intake & Output 06/23/18 06/24/18 06/24/18 22:59 06:59 14:59 Intake Total 701.7 640 420 Output Total 590 580 Balance 111.7 60 420 Weight 170 lb Intake: IV 6 Intake, IV Amount 455.7 400 200 Left Hand 200 400 200 Left lower arm 250 Right Antecubital 5.7 Oral 240 240 220 Output: Urine 590 580 Urethral (Wright) 590 580 - Physical Exam Head: Positive for: Atraumatic, Normocephalic Pupils: Positive for: PERRL Extroacular Muscles: Positive for: EOMI Conjunctiva: Positive for: Normal Mouth: Positive for: Moist Mucous Membranes Neck: Positive for: Normal Range of Motion Respiratory/Chest: Positive for: Clear to Auscultation, Good Air Exchange Cardiovascular: Positive for: Regular Rate and Rhythm Abdomen: Positive for: Normal Bowel Sounds. Negative for: Tenderness, Distention Lower Extremity: Positive for: Temperature Abnormalties (left knee) Neurological: Positive for: CN II-XII Intact, Speech Normal. Negative for: Memory Normal (does not remember being admitted.) Skin: Positive for: Warm Psychiatric: Positive for: Alert, Oriented x 3 - Medications Active Medications: Active Medications Generic Name Dose Route Start Last Admin Trade Name Freq PRN Reason Stop Dose Admin Aspirin 81 mg 06/23/18 10:00 06/23/18 18:12 Ecotrin PO Not Given DAILY [facility] Clopidogrel Bisulfate 75 mg 06/23/18 10:00 06/23/18 18:15 Plavix PO Not Given DAILY [facility] Diltiazem HCl 180 mg 06/23/18 10:00 06/24/18 09:39 Cardizem Cd PO 180 mg DAILY [facility] Administration Famotidine 20 mg 06/23/18 10:00 06/24/18 09:46 Pepcid PO 20 mg DAILY [facility] Administration Heparin Sodium (Porcine) 5,000 units 06/22/18 22:00 06/24/18 05:46 Heparin SC 5,000 units Q8 [facility] Administration Ceftriaxone Sodium 2 gm/ 100 mls @ 100 mls/hr 06/22/18 18:00 06/23/18 18:15 Sodium Chloride IVPB 100 mls/hr Q24H [facility] Administration Protocol Sodium Chloride 1,000 mls @ 50 mls/hr 06/22/18 22:19 06/23/18 18:23 Sodium Chloride 0.9% IV 50 mls/hr .Q20H [facility] Administration Insulin Aspart 0 unit 06/23/18 04:00 06/24/18 11:41 Novolog SC 12 units Q4H A[facility] Administration Protocol Levothyroxine Sodium 50 mcg 06/24/18 09:56 06/24/18 11:45 Synthroid PO Not Given DAILY@0630 [facility] Metoprolol Succinate 25 mg 06/23/18 10:00 06/24/18 09:49 Toprol Xl PO 25 mg DAILY [facility] Administration Sevelamer Carbonate 800 mg 06/22/18 14:30 06/24/18 09:00 Renvela PO 800 mg TIDCC ALEX Administration Tamsulosin HCl 0.4 mg 06/23/18 10:00 06/24/18 09:39 Flomax PO 0.4 mg DAILY [facility] Administration - Patient Studies Lab Studies: Microbiology Studies 06/22/18 19:17 MRSA Culture (Admit) - Final Nose MRSA NOT DETECTED 06/22/18 09:56 Urine Culture - Final Urine,Catheterized No Growth (<1,000 CFU/ML) 06/22/18 14:30 Blood Culture - Preliminary Blood NO GROWTH AFTER 24 HOURS 06/22/18 14:30 Blood Culture - Preliminary Blood NO GROWTH AFTER 24 HOURS Lab Studies 06/24/18 06/24/18 06/24/18 Range/Units 11:12 11:12 07:25 WBC 14.5 H (4.8-10.8) K/uL RBC 4.42 (4.40-5.90) Mil/uL Hgb 12.9 (12.0-18.0) g/dL Hct 39.0 (35.0-51.0) % MCV 88.3 (80.0-94.0) fL MCH 29.2 (27.0-31.0) pg MCHC 33.1 (33.0-37.0) g/dL RDW 14.2 (11.5-14.5) % Plt Count 191 (130-400) K/uL MPV 10.1 (7.2-11.7) fL Neut % (Auto) 84.3 H (50.0-75.0) % Lymph % (Auto) 8.0 L (20.0-40.0) % Bartholomew % (Auto) 6.5 (0.0-10.0) % Eos % (Auto) 0.8 (0.0-4.0) % Baso % (Auto) 0.4 (0.0-2.0) % Neut # (Auto) 12.2 H (1.8-7.0) K/uL Lymph # (Auto) 1.2 (1.0-4.3) K/uL Bartholomew # (Auto) 0.9 H (0.0-0.8) K/uL Eos # (Auto) 0.1 (0.0-0.7) K/uL Baso # (Auto) 0.1 (0.0-0.2) K/uL Neutrophils % (Manual) 89 H (50-75) % Lymphocytes % (Manual) 5 L (20-40) % Monocytes % (Manual) 5 (0-10) % Eosinophils % (Manual) 1 (0-4) % Platelet Estimate Normal (NORMAL) RBC Morphology Normal Sodium 136 (132-148) mmol/L Potassium 4.4 (3.6-5.2) mmol/L Chloride 107 (98-107) mmol/L Carbon Dioxide 17 L (22-30) mmol/L Anion Gap 17 (10-20) BUN 63 H (9-20) mg/dL Creatinine 3.9 H (0.8-1.5) mg/dL Est GFR ( Amer) 18 Est GFR (Non-Af Amer) 15 POC Glucose (mg/dL) 348 H (65-110) mg/dL Random Glucose 527 H* D (75-110) mg/dL Hemoglobin A1c (4.2-6.5) % Uric Acid 8.5 (3.5-8.5) mg/dL Calcium 8.1 L (8.6-10.4) mg/dl Total Bilirubin 0.4 (0.2-1.3) mg/dL AST 34 (17-59) U/L ALT 20 L (21-72) U/L Alkaline Phosphatase 115 (38-126) U/L Ammonia (9-33) umol/L Total Protein 6.6 (6.3-8.3) g/dL Albumin 3.3 L (3.5-5.0) g/dL Globulin 3.3 (2.2-3.9) gm/dL Albumin/Globulin Ratio 1.0 (1.0-2.1) Prolactin (3.7-17.9) ng/mL 06/24/18 06/24/18 06/24/18 Range/Units 06:45 06:45 05:39 WBC 15.1 H (4.8-10.8) K/uL RBC 4.26 L (4.40-5.90) Mil/uL Hgb 12.6 (12.0-18.0) g/dL Hct 37.2 (35.0-51.0) % MCV 87.2 (80.0-94.0) fL MCH 29.4 (27.0-31.0) pg MCHC 33.8 (33.0-37.0) g/dL RDW 14.3 (11.5-14.5) % Plt Count 174 (130-400) K/uL MPV 9.8 (7.2-11.7) fL Neut % (Auto) 77.9 H (50.0-75.0) % Lymph % (Auto) 12.4 L (20.0-40.0) % Bartholomew % (Auto) 7.5 (0.0-10.0) % Eos % (Auto) 1.7 (0.0-4.0) % Baso % (Auto) 0.5 (0.0-2.0) % Neut # (Auto) 11.7 H (1.8-7.0) K/uL Lymph # (Auto) 1.9 (1.0-4.3) K/uL Bartholomew # (Auto) 1.1 H (0.0-0.8) K/uL Eos # (Auto) 0.3 (0.0-0.7) K/uL Baso # (Auto) 0.1 (0.0-0.2) K/uL Neutrophils % (Manual) (50-75) % Lymphocytes % (Manual) (20-40) % Monocytes % (Manual) (0-10) % Eosinophils % (Manual) (0-4) % Platelet Estimate (NORMAL) RBC Morphology Sodium (132-148) mmol/L Potassium (3.6-5.2) mmol/L Chloride (98-107) mmol/L Carbon Dioxide (22-30) mmol/L Anion Gap (10-20) BUN (9-20) mg/dL Creatinine (0.8-1.5) mg/dL Est GFR ( Amer) Est GFR (Non-Af Amer) POC Glucose (mg/dL) (65-110) mg/dL Random Glucose (75-110) mg/dL Hemoglobin A1c 12.2 H (4.2-6.5) % Uric Acid (3.5-8.5) mg/dL Calcium (8.6-10.4) mg/dl Total Bilirubin (0.2-1.3) mg/dL AST (17-59) U/L ALT (21-72) U/L Alkaline Phosphatase (38-126) U/L Ammonia 10 D (9-33) umol/L Total Protein (6.3-8.3) g/dL Albumin (3.5-5.0) g/dL Globulin (2.2-3.9) gm/dL Albumin/Globulin Ratio (1.0-2.1) Prolactin (3.7-17.9) ng/mL 06/24/18 06/24/18 06/23/18 Range/Units 05:08 00:17 19:31 WBC (4.8-10.8) K/uL RBC (4.40-5.90) Mil/uL Hgb (12.0-18.0) g/dL Hct (35.0-51.0) % MCV (80.0-94.0) fL MCH (27.0-31.0) pg MCHC (33.0-37.0) g/dL RDW (11.5-14.5) % Plt Count (130-400) K/uL MPV (7.2-11.7) fL Neut % (Auto) (50.0-75.0) % Lymph % (Auto) (20.0-40.0) % Bartholomew % (Auto) (0.0-10.0) % Eos % (Auto) (0.0-4.0) % Baso % (Auto) (0.0-2.0) % Neut # (Auto) (1.8-7.0) K/uL Lymph # (Auto) (1.0-4.3) K/uL Bartholomew # (Auto) (0.0-0.8) K/uL Eos # (Auto) (0.0-0.7) K/uL Baso # (Auto) (0.0-0.2) K/uL Neutrophils % (Manual) (50-75) % Lymphocytes % (Manual) (20-40) % Monocytes % (Manual) (0-10) % Eosinophils % (Manual) (0-4) % Platelet Estimate (NORMAL) RBC Morphology Sodium (132-148) mmol/L Potassium (3.6-5.2) mmol/L Chloride (98-107) mmol/L Carbon Dioxide (22-30) mmol/L Anion Gap (10-20) BUN (9-20) mg/dL Creatinine (0.8-1.5) mg/dL Est GFR ( Amer) Est GFR (Non-Af Amer) POC Glucose (mg/dL) 163 H 206 H 348 H (65-110) mg/dL Random Glucose (75-110) mg/dL Hemoglobin A1c (4.2-6.5) % Uric Acid (3.5-8.5) mg/dL Calcium (8.6-10.4) mg/dl Total Bilirubin (0.2-1.3) mg/dL AST (17-59) U/L ALT (21-72) U/L Alkaline Phosphatase (38-126) U/L Ammonia (9-33) umol/L Total Protein (6.3-8.3) g/dL Albumin (3.5-5.0) g/dL Globulin (2.2-3.9) gm/dL Albumin/Globulin Ratio (1.0-2.1) Prolactin (3.7-17.9) ng/mL 06/23/18 06/23/18 06/23/18 Range/Units 16:27 15:23 15:23 WBC (4.8-10.8) K/uL RBC (4.40-5.90) Mil/uL Hgb (12.0-18.0) g/dL Hct (35.0-51.0) % MCV (80.0-94.0) fL MCH (27.0-31.0) pg MCHC (33.0-37.0) g/dL RDW (11.5-14.5) % Plt Count (130-400) K/uL MPV (7.2-11.7) fL Neut % (Auto) (50.0-75.0) % Lymph % (Auto) (20.0-40.0) % Bartholomew % (Auto) (0.0-10.0) % Eos % (Auto) (0.0-4.0) % Baso % (Auto) (0.0-2.0) % Neut # (Auto) (1.8-7.0) K/uL Lymph # (Auto) (1.0-4.3) K/uL Bartholomew # (Auto) (0.0-0.8) K/uL Eos # (Auto) (0.0-0.7) K/uL Baso # (Auto) (0.0-0.2) K/uL Neutrophils % (Manual) (50-75) % Lymphocytes % (Manual) (20-40) % Monocytes % (Manual) (0-10) % Eosinophils % (Manual) (0-4) % Platelet Estimate (NORMAL) RBC Morphology Sodium (132-148) mmol/L Potassium (3.6-5.2) mmol/L Chloride (98-107) mmol/L Carbon Dioxide (22-30) mmol/L Anion Gap (10-20) BUN (9-20) mg/dL Creatinine (0.8-1.5) mg/dL Est GFR ( Amer) Est GFR (Non-Af Amer) POC Glucose (mg/dL) 256 H (65-110) mg/dL Random Glucose (75-110) mg/dL Hemoglobin A1c (4.2-6.5) % Uric Acid (3.5-8.5) mg/dL Calcium (8.6-10.4) mg/dl Total Bilirubin (0.2-1.3) mg/dL AST (17-59) U/L ALT (21-72) U/L Alkaline Phosphatase (38-126) U/L Ammonia 14 (9-33) umol/L Total Protein (6.3-8.3) g/dL Albumin (3.5-5.0) g/dL Globulin (2.2-3.9) gm/dL Albumin/Globulin Ratio (1.0-2.1) Prolactin 21.3 H (3.7-17.9) ng/mL Laboratory Results - last 24 hr 06/23/18 06/23/18 06/23/18 15:23 15:23 16:27 WBC RBC Hgb Hct MCV MCH MCHC RDW Plt Count MPV Neut % (Auto) Lymph % (Auto) Bartholomew % (Auto) Eos % (Auto) Baso % (Auto) Neut # (Auto) Lymph # (Auto) Bartholomew # (Auto) Eos # (Auto) Baso # (Auto) Neutrophils % (Manual) Lymphocytes % (Manual) Monocytes % (Manual) Eosinophils % (Manual) Platelet Estimate RBC Morphology Sodium Potassium Chloride Carbon Dioxide Anion Gap BUN Creatinine Est GFR ( Amer) Est GFR (Non-Af Amer) POC Glucose (mg/dL) 256 H Random Glucose Hemoglobin A1c Uric Acid Calcium Total Bilirubin AST ALT Alkaline Phosphatase Ammonia 14 Total Protein Albumin Globulin Albumin/Globulin Ratio Prolactin 21.3 H 06/23/18 06/24/18 06/24/18 19:31 00:17 05:08 WBC RBC Hgb Hct MCV MCH MCHC RDW Plt Count MPV Neut % (Auto) Lymph % (Auto) Bartholomew % (Auto) Eos % (Auto) Baso % (Auto) Neut # (Auto) Lymph # (Auto) Bartholomew # (Auto) Eos # (Auto) Baso # (Auto) Neutrophils % (Manual) Lymphocytes % (Manual) Monocytes % (Manual) Eosinophils % (Manual) Platelet Estimate RBC Morphology Sodium Potassium Chloride Carbon Dioxide Anion Gap BUN Creatinine Est GFR ( Amer) Est GFR (Non-Af Amer) POC Glucose (mg/dL) 348 H 206 H 163 H Random Glucose Hemoglobin A1c Uric Acid Calcium Total Bilirubin AST ALT Alkaline Phosphatase Ammonia Total Protein Albumin Globulin Albumin/Globulin Ratio Prolactin 10/05/0406/24/18 06/24/18 05:39 06:45 06:45 WBC 15.1 H RBC 4.26 L Hgb 12.6 Hct 37.2 MCV 87.2 MCH 29.4 MCHC 33.8 RDW 14.3 Plt Count 174 MPV 9.8 Neut % (Auto) 77.9 H Lymph % (Auto) 12.4 L Bartholomew % (Auto) 7.5 Eos % (Auto) 1.7 Baso % (Auto) 0.5 Neut # (Auto) 11.7 H Lymph # (Auto) 1.9 Bartholomew # (Auto) 1.1 H Eos # (Auto) 0.3 Baso # (Auto) 0.1 Neutrophils % (Manual) Lymphocytes % (Manual) Monocytes % (Manual) Eosinophils % (Manual) Platelet Estimate RBC Morphology Sodium Potassium Chloride Carbon Dioxide Anion Gap BUN Creatinine Est GFR ( Amer) Est GFR (Non-Af Amer) POC Glucose (mg/dL) Random Glucose Hemoglobin A1c 12.2 H Uric Acid Calcium Total Bilirubin AST ALT Alkaline Phosphatase Ammonia 10 D Total Protein Albumin Globulin Albumin/Globulin Ratio Prolactin 06/24/18 06/24/18 06/24/18 07:25 11:12 11:12 WBC 14.5 H RBC 4.42 Hgb 12.9 Hct 39.0 MCV 88.3 MCH 29.2 MCHC 33.1 RDW 14.2 Plt Count 191 MPV 10.1 Neut % (Auto) 84.3 H Lymph % (Auto) 8.0 L Bartholomew % (Auto) 6.5 Eos % (Auto) 0.8 Baso % (Auto) 0.4 Neut # (Auto) 12.2 H Lymph # (Auto) 1.2 Bartholomew # (Auto) 0.9 H Eos # (Auto) 0.1 Baso # (Auto) 0.1 Neutrophils % (Manual) 89 H Lymphocytes % (Manual) 5 L Monocytes % (Manual) 5 Eosinophils % (Manual) 1 Platelet Estimate Normal RBC Morphology Normal Sodium 136 Potassium 4.4 Chloride 107 Carbon Dioxide 17 L Anion Gap 17 BUN 63 H Creatinine 3.9 H Est GFR ( Amer) 18 Est GFR (Non-Af Amer) 15 POC Glucose (mg/dL) 348 H Random Glucose 527 H* D Hemoglobin A1c Uric Acid 8.5 Calcium 8.1 L Total Bilirubin 0.4 AST 34 ALT 20 L Alkaline Phosphatase 115 Ammonia Total Protein 6.6 Albumin 3.3 L Globulin 3.3 Albumin/Globulin Ratio 1.0 Prolactin Fingerstick Blood Sugar Results: 256 Review of Systems - Review of Systems All systems: reviewed and no additional remarkable complaints except Review of Systems: as per HPI Critical Care Progress Note - Nutrition Nutrition: Nutrition Category Date Time Status Renal Diet [DIET] Diets 06/23/18 Lunch Active Assessment/Plan - Assessment and Plan (Free Text) Assessment: Patient is a 78 year old male with past medical history of HTN, T2DM, hypercholesterolemia, hyperthyroidism, gastritis, renal failure, LA presenting to ED with chief complaint of altered mental status with agitated and combative behavior, and was admitted to ICU for management of sepsis and DKA. Plan: Neuro: - AAOx3 -follows commands -Pt refused MRI - Head CT shows mild diffuse/confluent chronic periventricular white matter ischemic changes seen extending peripherally into the deep and subcortical white matter. Chronic lacunar type infarct right thalamus, both basal nuclei. Mild ch ronic brainstem lacunar type infarcts. - Precedex titrated off - 25 mg fentanyl IV given once with good response, a lot of patient's delirium is exacerbated by pain. - Neurology consulted. Appreciate recs. Skel: obtained CT without contrast of knee joints and lumbosacral spine, no evidence of abscesses or joint infection. Pulm: - CXR shows slight increased pulmonary vascularity, mild bibasilar atelectasis, cardiomegaly - maintain SPO2> 92 % CV: - maintain MAP> 65 - continue home Cardizem 180 mg PO daily, Cozaar 25 mg PO daily, Plavix 75 mg daily, Aspirin 81 mg daily, Metoprolol 25 mg PO daily - pt refused Echo today GI: - swallow eval - Pepcid 20 mg PO dialy Renal: - Cr 3.9 - UA shows 2+ protein, 3+ glucose, 2+ blood, 30 RBCs - continue home tamsulosin 0.4 mg - monitor I and Os - monitor and replete electrolytes Endo: DKA/HHS resolved, now off of insulin drip, on sliding scale -anion gap closed -Random glucose >500 today given 10 u novolog stat on top of sliding scale coverage Heme: - monitor H&H - continue home ferrous sulfate 325 mg PO daily ID: - Temperature on admission 102.6, WBCs 15.2 - Code sepsis called - cultures and serology neg - ID consulted. Appreciate recs. - Rocephin 2 gm IV daily PPX: Pepcid 20 mg PO daily, Heparin 5000 units SC Q8H, SCDS
--- NOTE | 2018-06-24 13:13 | CP.CCUPN ---
CCU Subjective - Physician Review Subjective (Free Text): 06/24/18 12:38 Pt seen and examined at bedside. Pt reports a large bm last night. Pt denies cp sob f/c n/v abd pain CCU Objective - Vital Signs / Intake & Output Vital Signs (Last 4 hours): Vital Signs Pulse Resp BP Pulse Ox 06/24/18 11:01 81 15 06/24/18 11:00 81 20 141/62 97 06/24/18 10:00 81 19 150/70 98 Intake and Output (Last 8hrs): Intake & Output 06/23/18 06/24/18 06/24/18 22:59 06:59 14:59 Intake Total 701.7 640 420 Output Total 590 580 Balance 111.7 60 420 Weight 170 lb Intake: IV 6 Intake, IV Amount 455.7 400 200 Left Hand 200 400 200 Left lower arm 250 Right Antecubital 5.7 Oral 240 240 220 Output: Urine 590 580 Urethral (Wright) 590 580 - Physical Exam Head: Positive for: Atraumatic, Normocephalic Pupils: Positive for: PERRL Extroacular Muscles: Positive for: EOMI Conjunctiva: Positive for: Normal Mouth: Positive for: Moist Mucous Membranes Neck: Positive for: Normal Range of Motion Respiratory/Chest: Positive for: Clear to Auscultation, Good Air Exchange Cardiovascular: Positive for: Regular Rate and Rhythm Abdomen: Positive for: Normal Bowel Sounds. Negative for: Tenderness, Distention Lower Extremity: Positive for: Temperature Abnormalties (left knee) Neurological: Positive for: CN II-XII Intact, Speech Normal. Negative for: Memory Normal (does not remember being admitted.) Skin: Positive for: Warm Psychiatric: Positive for: Alert, Oriented x 3 - Medications Active Medications: Active Medications Generic Name Dose Route Start Last Admin Trade Name Freq PRN Reason Stop Dose Admin Aspirin 81 mg 06/23/18 10:00 06/23/18 18:12 Ecotrin PO Not Given DAILY [facility] Clopidogrel Bisulfate 75 mg 06/23/18 10:00 06/23/18 18:15 Plavix PO Not Given DAILY [facility] Diltiazem HCl 180 mg 06/23/18 10:00 06/24/18 09:39 Cardizem Cd PO 180 mg DAILY [facility] Administration Famotidine 20 mg 06/23/18 10:00 06/24/18 09:46 Pepcid PO 20 mg DAILY [facility] Administration Heparin Sodium (Porcine) 5,000 units 06/22/18 22:00 06/24/18 05:46 Heparin SC 5,000 units Q8 [facility] Administration Ceftriaxone Sodium 2 gm/ 100 mls @ 100 mls/hr 06/22/18 18:00 06/23/18 18:15 Sodium Chloride IVPB 100 mls/hr Q24H [facility] Administration Protocol Sodium Chloride 1,000 mls @ 50 mls/hr 06/22/18 22:19 06/23/18 18:23 Sodium Chloride 0.9% IV 50 mls/hr .Q20H [facility] Administration Insulin Aspart 0 unit 06/23/18 04:00 06/24/18 11:41 Novolog SC 12 units Q4H [facility] Administration Protocol Levothyroxine Sodium 50 mcg 06/24/18 09:56 06/24/18 11:45 Synthroid PO Not Given DAILY@0630 [facility] Metoprolol Succinate 25 mg 06/23/18 10:00 06/24/18 09:49 Toprol Xl PO 25 mg DAILY [facility] Administration Sevelamer Carbonate 800 mg 06/22/18 14:30 06/24/18 09:00 Renvela PO 800 mg TIDCC [facility] Administration Tamsulosin HCl 0.4 mg 06/23/18 10:00 06/24/18 09:39 Flomax PO 0.4 mg DAILY [facility] Administration - Patient Studies Lab Studies: Microbiology Studies 06/22/18 19:17 MRSA Culture (Admit) - Final Nose MRSA NOT DETECTED 06/22/18 09:56 Urine Culture - Final Urine,Catheterized No Growth (<1,000 CFU/ML) 06/22/18 14:30 Blood Culture - Preliminary Blood NO GROWTH AFTER 24 HOURS 06/22/18 14:30 Blood Culture - Preliminary Blood NO GROWTH AFTER 24 HOURS Lab Studies 06/24/18 06/24/18 06/24/18 Range/Units 11:12 11:12 07:25 WBC 14.5 H (4.8-10.8) K/uL RBC 4.42 (4.40-5.90) Mil/uL Hgb 12.9 (12.0-18.0) g/dL Hct 39.0 (35.0-51.0) % MCV 88.3 (80.0-94.0) fL MCH 29.2 (27.0-31.0) pg MCHC 33.1 (33.0-37.0) g/dL RDW 14.2 (11.5-14.5) % Plt Count 191 (130-400) K/uL MPV 10.1 (7.2-11.7) fL Neut % (Auto) 84.3 H (50.0-75.0) % Lymph % (Auto) 8.0 L (20.0-40.0) % [place] % (Auto) 6.5 (0.0-10.0) % Eos % (Auto) 0.8 (0.0-4.0) % Baso % (Auto) 0.4 (0.0-2.0) % Neut # (Auto) 12.2 H (1.8-7.0) K/uL Lymph # (Auto) 1.2 (1.0-4.3) K/uL [place] # (Auto) 0.9 H (0.0-0.8) K/uL Eos # (Auto) 0.1 (0.0-0.7) K/uL Baso # (Auto) 0.1 (0.0-0.2) K/uL Neutrophils % (Manual) 89 H (50-75) % Lymphocytes % (Manual) 5 L (20-40) % Monocytes % (Manual) 5 (0-10) % Eosinophils % (Manual) 1 (0-4) % Platelet Estimate Normal (NORMAL) RBC Morphology Normal Sodium 136 (132-148) mmol/L Potassium 4.4 (3.6-5.2) mmol/L Chloride 107 (98-107) mmol/L Carbon Dioxide 17 L (22-30) mmol/L Anion Gap 17 (10-20) BUN 63 H (9-20) mg/dL Creatinine 3.9 H (0.8-1.5) mg/dL Est GFR ( Amer) 18 Est GFR (Non-Af Amer) 15 POC Glucose (mg/dL) 348 H (65-110) mg/dL Random Glucose 527 H* D (75-110) mg/dL Hemoglobin A1c (4.2-6.5) % Uric Acid 8.5 (3.5-8.5) mg/dL Calcium 8.1 L (8.6-10.4) mg/dl Total Bilirubin 0.4 (0.2-1.3) mg/dL AST 34 (17-59) U/L ALT 20 L (21-72) U/L Alkaline Phosphatase 115 (38-126) U/L Ammonia (9-33) umol/L Total Protein 6.6 (6.3-8.3) g/dL Albumin 3.3 L (3.5-5.0) g/dL Globulin 3.3 (2.2-3.9) gm/dL Albumin/Globulin Ratio 1.0 (1.0-2.1) Prolactin (3.7-17.9) ng/mL 06/24/18 06/24/18 06/24/18 Range/Units 06:45 06:45 05:39 WBC 15.1 H (4.8-10.8) K/uL RBC 4.26 L (4.40-5.90) Mil/uL Hgb 12.6 (12.0-18.0) g/dL Hct 37.2 (35.0-51.0) % MCV 87.2 (80.0-94.0) fL MCH 29.4 (27.0-31.0) pg MCHC 33.8 (33.0-37.0) g/dL RDW 14.3 (11.5-14.5) % Plt Count 174 (130-400) K/uL MPV 9.8 (7.2-11.7) fL Neut % (Auto) 77.9 H (50.0-75.0) % Lymph % (Auto) 12.4 L (20.0-40.0) % [place] % (Auto) 7.5 (0.0-10.0) % Eos % (Auto) 1.7 (0.0-4.0) % Baso % (Auto) 0.5 (0.0-2.0) % Neut # (Auto) 11.7 H (1.8-7.0) K/uL Lymph # (Auto) 1.9 (1.0-4.3) K/uL [place] # (Auto) 1.1 H (0.0-0.8) K/uL Eos # (Auto) 0.3 (0.0-0.7) K/uL Baso # (Auto) 0.1 (0.0-0.2) K/uL Neutrophils % (Manual) (50-75) % Lymphocytes % (Manual) (20-40) % Monocytes % (Manual) (0-10) % Eosinophils % (Manual) (0-4) % Platelet Estimate (NORMAL) RBC Morphology Sodium (132-148) mmol/L Potassium (3.6-5.2) mmol/L Chloride (98-107) mmol/L Carbon Dioxide (22-30) mmol/L Anion Gap (10-20) BUN (9-20) mg/dL Creatinine (0.8-1.5) mg/dL Est GFR ( Amer) Est GFR (Non-Af Amer) POC Glucose (mg/dL) (65-110) mg/dL Random Glucose (75-110) mg/dL Hemoglobin A1c 12.2 H (4.2-6.5) % Uric Acid (3.5-8.5) mg/dL Calcium (8.6-10.4) mg/dl Total Bilirubin (0.2-1.3) mg/dL AST (17-59) U/L ALT (21-72) U/L Alkaline Phosphatase (38-126) U/L Ammonia 10 D (9-33) umol/L Total Protein (6.3-8.3) g/dL Albumin (3.5-5.0) g/dL Globulin (2.2-3.9) gm/dL Albumin/Globulin Ratio (1.0-2.1) Prolactin (3.7-17.9) ng/mL 06/24/18 06/24/18 06/23/18 Range/Units 05:08 00:17 19:31 WBC (4.8-10.8) K/uL RBC (4.40-5.90) Mil/uL Hgb (12.0-18.0) g/dL Hct (35.0-51.0) % MCV (80.0-94.0) fL MCH (27.0-31.0) pg MCHC (33.0-37.0) g/dL RDW (11.5-14.5) % Plt Count (130-400) K/uL MPV (7.2-11.7) fL Neut % (Auto) (50.0-75.0) % Lymph % (Auto) (20.0-40.0) % [place] % (Auto) (0.0-10.0) % Eos % (Auto) (0.0-4.0) % Baso % (Auto) (0.0-2.0) % Neut # (Auto) (1.8-7.0) K/uL Lymph # (Auto) (1.0-4.3) K/uL [place] # (Auto) (0.0-0.8) K/uL Eos # (Auto) (0.0-0.7) K/uL Baso # (Auto) (0.0-0.2) K/uL Neutrophils % (Manual) (50-75) % Lymphocytes % (Manual) (20-40) % Monocytes % (Manual) (0-10) % Eosinophils % (Manual) (0-4) % Platelet Estimate (NORMAL) RBC Morphology Sodium (132-148) mmol/L Potassium (3.6-5.2) mmol/L Chloride (98-107) mmol/L Carbon Dioxide (22-30) mmol/L Anion Gap (10-20) BUN (9-20) mg/dL Creatinine (0.8-1.5) mg/dL Est GFR ( Amer) Est GFR (Non-Af Amer) POC Glucose (mg/dL) 163 H 206 H 348 H (65-110) mg/dL Random Glucose (75-110) mg/dL Hemoglobin A1c (4.2-6.5) % Uric Acid (3.5-8.5) mg/dL Calcium (8.6-10.4) mg/dl Total Bilirubin (0.2-1.3) mg/dL AST (17-59) U/L ALT (21-72) U/L Alkaline Phosphatase (38-126) U/L Ammonia (9-33) umol/L Total Protein (6.3-8.3) g/dL Albumin (3.5-5.0) g/dL Globulin (2.2-3.9) gm/dL Albumin/Globulin Ratio (1.0-2.1) Prolactin (3.7-17.9) ng/mL 06/23/18 06/23/18 06/23/18 Range/Units 16:27 15:23 15:23 WBC (4.8-10.8) K/uL RBC (4.40-5.90) Mil/uL Hgb (12.0-18.0) g/dL Hct (35.0-51.0) % MCV (80.0-94.0) fL MCH (27.0-31.0) pg MCHC (33.0-37.0) g/dL RDW (11.5-14.5) % Plt Count (130-400) K/uL MPV (7.2-11.7) fL Neut % (Auto) (50.0-75.0) % Lymph % (Auto) (20.0-40.0) % [place] % (Auto) (0.0-10.0) % Eos % (Auto) (0.0-4.0) % Baso % (Auto) (0.0-2.0) % Neut # (Auto) (1.8-7.0) K/uL Lymph # (Auto) (1.0-4.3) K/uL [place] # (Auto) (0.0-0.8) K/uL Eos # (Auto) (0.0-0.7) K/uL Baso # (Auto) (0.0-0.2) K/uL Neutrophils % (Manual) (50-75) % Lymphocytes % (Manual) (20-40) % Monocytes % (Manual) (0-10) % Eosinophils % (Manual) (0-4) % Platelet Estimate (NORMAL) RBC Morphology Sodium (132-148) mmol/L Potassium (3.6-5.2) mmol/L Chloride (98-107) mmol/L Carbon Dioxide (22-30) mmol/L Anion Gap (10-20) BUN (9-20) mg/dL Creatinine (0.8-1.5) mg/dL Est GFR ( Amer) Est GFR (Non-Af Amer) POC Glucose (mg/dL) 256 H (65-110) mg/dL Random Glucose (75-110) mg/dL Hemoglobin A1c (4.2-6.5) % Uric Acid (3.5-8.5) mg/dL Calcium (8.6-10.4) mg/dl Total Bilirubin (0.2-1.3) mg/dL AST (17-59) U/L ALT (21-72) U/L Alkaline Phosphatase (38-126) U/L Ammonia 14 (9-33) umol/L Total Protein (6.3-8.3) g/dL Albumin (3.5-5.0) g/dL Globulin (2.2-3.9) gm/dL Albumin/Globulin Ratio (1.0-2.1) Prolactin 21.3 H (3.7-17.9) ng/mL Laboratory Results - last 24 hr 06/23/18 06/23/18 06/23/18 15:23 15:23 16:27 WBC RBC Hgb Hct MCV MCH MCHC RDW Plt Count MPV Neut % (Auto) Lymph % (Auto) [place] % (Auto) Eos % (Auto) Baso % (Auto) Neut # (Auto) Lymph # (Auto) [place] # (Auto) Eos # (Auto) Baso # (Auto) Neutrophils % (Manual) Lymphocytes % (Manual) Monocytes % (Manual) Eosinophils % (Manual) Platelet Estimate RBC Morphology Sodium Potassium Chloride Carbon Dioxide Anion Gap BUN Creatinine Est GFR ( Amer) Est GFR (Non-Af Amer) POC Glucose (mg/dL) 256 H Random Glucose Hemoglobin A1c Uric Acid Calcium Total Bilirubin AST ALT Alkaline Phosphatase Ammonia 14 Total Protein Albumin Globulin Albumin/Globulin Ratio Prolactin 21.3 H 06/23/18 06/24/18 06/24/18 19:31 00:17 05:08 WBC RBC Hgb Hct MCV MCH MCHC RDW Plt Count MPV Neut % (Auto) Lymph % (Auto) [place] % (Auto) Eos % (Auto) Baso % (Auto) Neut # (Auto) Lymph # (Auto) [place] # (Auto) Eos # (Auto) Baso # (Auto) Neutrophils % (Manual) Lymphocytes % (Manual) Monocytes % (Manual) Eosinophils % (Manual) Platelet Estimate RBC Morphology Sodium Potassium Chloride Carbon Dioxide Anion Gap BUN Creatinine Est GFR ( Amer) Est GFR (Non-Af Amer) POC Glucose (mg/dL) 348 H 206 H 163 H Random Glucose Hemoglobin A1c Uric Acid Calcium Total Bilirubin AST ALT Alkaline Phosphatase Ammonia Total Protein Albumin Globulin Albumin/Globulin Ratio Prolactin 06/24/18 06/24/18 06/24/18 05:39 06:45 06:45 WBC 15.1 H RBC 4.26 L Hgb 12.6 Hct 37.2 MCV 87.2 MCH 29.4 MCHC 33.8 RDW 14.3 Plt Count 174 MPV 9.8 Neut % (Auto) 77.9 H Lymph % (Auto) 12.4 L [place] % (Auto) 7.5 Eos % (Auto) 1.7 Baso % (Auto) 0.5 Neut # (Auto) 11.7 H Lymph # (Auto) 1.9 [place] # (Auto) 1.1 H Eos # (Auto) 0.3 Baso # (Auto) 0.1 Neutrophils % (Manual) Lymphocytes % (Manual) Monocytes % (Manual) Eosinophils % (Manual) Platelet Estimate RBC Morphology Sodium Potassium Chloride Carbon Dioxide Anion Gap BUN Creatinine Est GFR ( Amer) Est GFR (Non-Af Amer) POC Glucose (mg/dL) Random Glucose Hemoglobin A1c 12.2 H Uric Acid Calcium Total Bilirubin AST ALT Alkaline Phosphatase Ammonia 10 D Total Protein Albumin Globulin Albumin/Globulin Ratio Prolactin 06/24/18 06/24/18 06/24/18 07:25 11:12 11:12 WBC 14.5 H RBC 4.42 Hgb 12.9 Hct 39.0 MCV 88.3 MCH 29.2 MCHC 33.1 RDW 14.2 Plt Count 191 MPV 10.1 Neut % (Auto) 84.3 H Lymph % (Auto) 8.0 L [place] % (Auto) 6.5 Eos % (Auto) 0.8 Baso % (Auto) 0.4 Neut # (Auto) 12.2 H Lymph # (Auto) 1.2 [place] # (Auto) 0.9 H Eos # (Auto) 0.1 Baso # (Auto) 0.1 Neutrophils % (Manual) 89 H Lymphocytes % (Manual) 5 L Monocytes % (Manual) 5 Eosinophils % (Manual) 1 Platelet Estimate Normal RBC Morphology Normal Sodium 136 Potassium 4.4 Chloride 107 Carbon Dioxide 17 L Anion Gap 17 BUN 63 H Creatinine 3.9 H Est GFR ( Amer) 18 Est GFR (Non-Af Amer) 15 POC Glucose (mg/dL) 348 H Random Glucose 527 H* D Hemoglobin A1c Uric Acid 8.5 Calcium 8.1 L Total Bilirubin 0.4 AST 34 ALT 20 L Alkaline Phosphatase 115 Ammonia Total Protein 6.6 Albumin 3.3 L Globulin 3.3 Albumin/Globulin Ratio 1.0 Prolactin Fingerstick Blood Sugar Results: 256 Critical Care Progress Note - Nutrition Nutrition: Nutrition Category Date Time Status Renal Diet [DIET] Diets 06/23/18 Lunch Active
[2018-06-24] MEDS: Sodium Chloride 0.9% 1,000 ML IV SCH (16:22)
--- NOTE | 2018-06-24 16:31 | CON ---
DATE: 06/24/2018 ATTENDING PHYSICIAN: Camilo Aragon MD LOCATION: The patient's room number is ICU bed 16. TIME OF EVALUATION: 06:45 a.m. REASON FOR CONSULTATION: Change in mental status. CHIEF COMPLAINT: The patient was admitted with history of change in mental status, been witnessed by his . During the hospital course, his change in mental status was not resolved completely. From neurological point of view, I was called in to evaluate him for further management. HISTORY OF PRESENT ILLNESS: Mr. Nolan Yu is a 78-year-old moderately-built, right-handed male brought into [facility] with witness of change in mental status, as per his . He had become combative and angry, which was new to her. No history of fall. No history of trauma to his head. No history of involuntary movement during the process. No history of bowel or bladder incontinence. No history of bitten tongue. He had similar episodes while he was admitted previously in the hospital following his heart surgery, as per the documentation. At present, the patient is comfortably sitting in the chair without any complaints. He knows he is in the hospital and follows all commands. PAST MEDICAL HISTORY: Hypertension, type 2 diabetes mellitus, dyslipidemia, hyperthyroidism, gastritis, chronic renal failure, history of myocardial infarction status post bypass surgery in 2017. SOCIAL HISTORY: Former smoker. Alcohol history not available. ALLERGIES: NO KNOWN ALLERGIES. REVIEW OF SYSTEMS: A 12-point system being reviewed. From neuro, change in mental status. MEDICATIONS: Cardizem, Cozaar, Ecotrin, Feosol, Flomax, heparin. PHYSICAL EXAMINATION: VITAL SIGNS: Blood pressure 152/72 which was done at 05:00 with mean artery pressure of 89, respiratory rate 17 and regular, temperature afebrile with a pulse 89 and regular. NECK: Supple. No carotid bruits. HEART: Sounds regular. CHEST: Fair air entry. EXTREMITIES: No edema in legs. NEUROLOGIC EXAMINATION: Mental status examination: He is communicable only in Romansh. He is awake. He knows he is in the hospital. He follows two-step command, problem in crossing his midline. He moves all four extremities against the gravity as per the command. Speech is fluent. He could name the object normal. Cranial nerve examination: Visual field responds to visual threat. Pupils reactive. Extraocular movement normal. No nystagmus. No facial sensory deficit. No facial asymmetry. Hearing is normal. Tongue is midline. Good gag. Motor examination: On outstretched hand with eyes closed, no drift noted, no asterixis. Mild sensory tremor noted. Extremities: No edema in legs. Gait: Deferred at this time. CONCLUSION: Mr. Nolan Yu has been presenting with, as per neurological examination, change in mental status which is probably metabolic insult versus a toxic process. This could be posterior cerebral artery distributed ischemic process as well. However, the whole episode was all resolved almost. The current examination does not show any lateralizing sign except mild sensory motor neuropathy. WORKUP: CT of the head reviewed, no acute process of ischemic process or space-occupying lesion. EKG, normal sinus rhythm. BLOOD WORKUP: WBC 15.1, hemoglobin of 12.6, hematocrit 37.2, platelet 174. Glucose 206. Prolactin 21.3, ammonia 14. RECOMMENDATIONS: 1. EEG to be done. 2. Prolactin level to be checked again today. 3. Out of bed, DVT prophylaxis. 4. Continue antibiotic as per ID, proper hydration, and keep the mean artery pressure around 100. When medically stable, the patient should have MRI of the brain to rule out any posterior cerebral artery ischemic process. The patient will be followed while he is in the hospital. Manas Lynch MD
[2018-06-24] MEDS: cefTRIAXone 2 GM in Sodium Chloride 0.9% 100 ML IVPB SCH (17:43)
--- NOTE | 2018-06-24 18:28 | CP.PCM.PN ---
Subjective - Date & Time of Evaluation Date of Evaluation: 06/24/18 Time of Evaluation: 10:15 - Subjective Subjective: clinically same Objective - Vital Signs/Intake and Output Vital Signs (last 24 hours): Temp Pulse Resp BP Pulse Ox 97.7 F 69 16 134/56 L 98 06/24/18 16:00 06/24/18 18:02 06/24/18 18:02 06/24/18 18:00 06/24/18 18:00 Intake and Output: 06/24/18 06/24/18 06:59 18:59 Intake Total 1080 1130 Output Total 980 450 Balance 100 680 - Medications Medications: Current Medications Aspirin (Ecotrin) 81 mg PO DAILY [facility] Last Admin: 06/23/18 18:12 Dose: Not Given Clopidogrel Bisulfate (Plavix) 75 mg PO DAILY [facility] Last Admin: 06/23/18 18:15 Dose: Not Given Diltiazem HCl (Cardizem Cd) 180 mg PO DAILY [facility] Last Admin: 06/24/18 09:39 Dose: 180 mg Famotidine (Pepcid) 20 mg PO DAILY [facility] Last Admin: 06/24/18 09:46 Dose: 20 mg Heparin Sodium (Porcine) (Heparin) 5,000 units SC Q8 [facility] Last Admin: 06/24/18 15:00 Dose: 5,000 units Ceftriaxone Sodium 2 gm/ (Sodium Chloride) 100 mls @ 100 mls/hr IVPB Q24H [facility]; Protocol Last Admin: 06/24/18 17:43 Dose: 100 mls/hr Sodium Chloride (Sodium Chloride 0.9%) 1,000 mls @ 50 mls/hr IV .Q20H [facility] Last Admin: 06/24/18 16:22 Dose: 50 mls/hr Insulin Aspart (Novolog) 0 unit SC Q4H [facility]; Protocol Last Admin: 06/24/18 16:27 Dose: 8 units Insulin Glargine (Lantus) 10 unit SC Q12 [facility] Levothyroxine Sodium (Synthroid) 50 mcg PO DAILY@0630 [facility] Last Admin: 06/24/18 11:45 Dose: Not Given Metoprolol Succinate (Toprol Xl) 25 mg PO DAILY [facility] Last Admin: 06/24/18 09:49 Dose: 25 mg Sevelamer Carbonate (Renvela) 800 mg PO TIDCC [facility] Last Admin: 06/24/18 16:24 Dose: 800 mg Tamsulosin HCl (Flomax) 0.4 mg PO DAILY [facility] Last Admin: 06/24/18 09:39 Dose: 0.4 mg - Labs Labs: 06/24/18 11:12 06/24/18 11:12 PT 11.0 SECONDS (9.7-12.2) 06/22/18 09:29 INR 1.0 06/22/18 09:29 APTT 32 SECONDS (21-34) 06/22/18 09:29
--- NOTE | 2018-06-24 20:58 | CARD ---
APPROVED REPORT Date of service: 06/22/2018 EKG Measurement Heart [id number] <Conclusion> Normal sinus rhythm Biatrial enlargement ST & T wave abnormality, consider lateral ischemia Abnormal ECG
[2018-06-24] MEDS: (Lantus) Insulin Glargine, Recombinant SC SCH (21:47)
[2018-06-25] MEDS: (Novolog) Insulin Aspart, Recombinant 100 u/ml 10 ml vial SC SCH ×6 (00:33→22:03)
--- NOTE | 2018-06-25 02:47 | PN ---
DATE: 06/24/2018 SUBJECTIVE: The patient was seen today. His vitals was stable. The patient was sitting in the chair. He was supposed to get echo done, but he was defiant. He was refusing to get it done and he states that he only came for sugars. He has no tingling on. He does not want the echo, even the echo nurse was there, the resident was there and even a Hebrew speaking nurse was called in, but it seemed he was very reluctant, so we discontinued the order. PHYSICAL EXAMINATION: VITAL SIGNS: T-max 98.3, pulse 71, blood pressure is 135/68, respirations are 18. HEENT: Head is atraumatic and normocephalic. NECK: Supple. LUNGS: Clear. HEART: S1 and S2 are regular. ABDOMEN: Soft and nontender. EXTREMITIES: No edema. LABORATORY DATA: His white count still is 14.5 and neutrophils are 89. He is under Rocephin 2 gm a day and he is given 63, creatinine is 3.9, still elevated. His sugars are still 527 today. He is misbehaving it looks like. Cultures have been negative. Urine cultures, blood cultures x2, MRSA negative. MEDICATIONS: He is on ceftriaxone 2 gm a day. ASSESSMENT AND PLAN: I wanted to know the etiology of his count. He has WBC elevation. He does have prosthetic valve, but he denies it, I do not know if he has or he does not have a prosthetic valve. At this time I will continue Rocephin and if his kidney function do not improve further it is may be due to sepsis increasing, to follow numbers tomorrow and if he allows at least we should do an echo and also to look for the other source of infection probably in the belly. I had discontinued CAT scan earlier because he started to get better and his mentation improved and I though it was metabolic encephalopathy and we will follow. Johanne Arteaga MD
[2018-06-25 05:58] LABS: BASO # 0.1 K/uL (0.0-0.2); BASO % 0.8 % (0.0-2.0); EOS # 0.3 K/uL (0.0-0.7); EOS % 2.2 % (0.0-4.0); HEMOGLOBIN 12.3 g/dL (12.0-18.0); LYMPH # 1.5 K/uL (1.0-4.3); LYMPH % 10.9 % (20.0-40.0); MEAN CELL VOLUME 89.3 fL (80.0-94.0); MEAN CORPUSCULAR HGB CONC 33.7 g/dL (33.0-37.0); MEAN PLATELET VOLUME 10.8 fL (7.2-11.7); MONO # 0.8 K/uL (0.0-0.8); MONO % 5.7 % (0.0-10.0); NEUT # 10.8 K/uL (1.8-7.0); NEUT % 80.4 % (50.0-75.0); RBC 4.1 Mil/uL (4.40-5.90); RED CELL DISTRIBUTION WIDTH 14.4 % (11.5-14.5); WHITE BLOOD COUNT 13.5 K/uL (4.8-10.8)
[2018-06-25] MEDS: Levothyroxine 50 MCG TAB PO SCH (06:00)
[2018-06-25 06:22] LABS: ALBUMIN 3.2 g/dL (3.5-5.0); CALCIUM 8.1 mg/dl (8.6-10.4)
[2018-06-25] MEDS: diltiaZEM 180 mg/24 Hours CD Cap PO SCH (09:37)
[2018-06-25] MEDS: Metoprolol Succinate 25 mg XL Tab PO SCH (09:37)
[2018-06-25] MEDS: (Lantus) Insulin Glargine, Recombinant SC SCH ×2 (09:37→22:01)
[2018-06-25] MEDS: Sodium Chloride 0.9% 1,000 ML IV SCH (11:56)
[2018-06-25 14:52] VITALS: RESP 20
--- NOTE | 2018-06-25 15:09 | CP.PCM.PN ---
Subjective - Date & Time of Evaluation Date of Evaluation: 06/25/18 Time of Evaluation: 07:45 - Subjective Subjective: clinically same Objective - Vital Signs/Intake and Output Vital Signs (last 24 hours): Temp Pulse Resp BP Pulse Ox 98.1 F 69 20 148/72 98 06/25/18 12:30 06/25/18 12:30 06/25/18 12:30 06/25/18 12:30 06/25/18 12:00 Intake and Output: 06/25/18 06/25/18 06:59 18:59 Intake Total 750 240 Output Total 500 Balance 250 240 - Medications Medications: Current Medications Aspirin (Ecotrin) 81 mg PO DAILY [facility] Last Admin: 06/23/18 18:12 Dose: Not Given Clopidogrel Bisulfate (Plavix) 75 mg PO DAILY [facility] Last Admin: 06/23/18 18:15 Dose: Not Given Diltiazem HCl (Cardizem Cd) 180 mg PO DAILY [facility] Last Admin: 06/25/18 09:37 Dose: 180 mg Famotidine (Pepcid) 20 mg PO DAILY [facility] Last Admin: 06/25/18 09:38 Dose: 20 mg Heparin Sodium (Porcine) (Heparin) 5,000 units SC Q8 [facility] Last Admin: 06/25/18 14:02 Dose: 5,000 units Ceftriaxone Sodium 2 gm/ (Sodium Chloride) 100 mls @ 100 mls/hr IVPB Q24H [facility]; Protocol Last Admin: 06/24/18 17:43 Dose: 100 mls/hr Sodium Chloride (Sodium Chloride 0.9%) 1,000 mls @ 50 mls/hr IV .Q20H [facility] Last Admin: 06/25/18 11:56 Dose: 50 mls/hr Insulin Aspart (Novolog) 0 unit SC Q4H [facility]; Protocol Last Admin: 06/25/18 11:49 Dose: 8 units Insulin Glargine (Lantus) 10 unit SC Q12 [facility] Last Admin: 06/25/18 09:37 Dose: 10 units Levothyroxine Sodium (Synthroid) 50 mcg PO DAILY@0630 [facility] Last Admin: 06/25/18 06:00 Dose: 50 mcg Metoprolol Succinate (Toprol Xl) 25 mg PO DAILY [facility] Last Admin: 06/25/18 09:37 Dose: 25 mg Sevelamer Carbonate (Renvela) 800 mg PO TIDCC [facility] Last Admin: 06/25/18 13:00 Dose: 800 mg Tamsulosin HCl (Flomax) 0.4 mg PO DAILY [facility] Last Admin: 06/25/18 09:37 Dose: 0.4 mg - Labs Labs: 06/25/18 05:48 06/25/18 05:49 PT 11.0 SECONDS (9.7-12.2) 06/22/18 09:29 INR 1.0 06/22/18 09:29 APTT 32 SECONDS (21-34) 06/22/18 09:29 - Constitutional Appears: Well - Head Exam Head Exam: ATRAUMATIC, NORMAL INSPECTION, NORMOCEPHALIC - Eye Exam Eye Exam: EOMI, Normal appearance, PERRL Pupil Exam: NORMAL ACCOMODATION, PERRL - ENT Exam ENT Exam: Mucous Membranes Moist, Normal Exam - Neck Exam Neck Exam: Full ROM, Normal Inspection. absent: Lymphadenopathy - Respiratory Exam Respiratory Exam: Decreased Breath Sounds - Cardiovascular Exam Cardiovascular Exam: REGULAR RHYTHM, +S1, +S2 - GI/Abdominal Exam GI & Abdominal Exam: Soft, Diminished Bowel Sounds - Rectal Exam Rectal Exam: Deferred
[2018-06-25] MEDS: cefTRIAXone 2 GM in Sodium Chloride 0.9% 100 ML IVPB SCH (17:51)
[2018-06-26] MEDS: (Novolog) Insulin Aspart, Recombinant 100 u/ml 10 ml vial SC SCH ×6 (00:17→21:43)
[2018-06-26] MEDS: Levothyroxine 50 MCG TAB PO SCH (05:44)
[2018-06-26] MEDS: Metoprolol Succinate 25 mg XL Tab PO SCH (10:10)
[2018-06-26] MEDS: diltiaZEM 180 mg/24 Hours CD Cap PO SCH (10:10)
[2018-06-26] MEDS: (Lantus) Insulin Glargine, Recombinant SC SCH ×2 (10:13→21:41)
--- NOTE | 2018-06-26 10:51 | PN ---
DATE: 06/26/2018 TIME OF EVALUATION: 07:20 a.m. NEUROLOGICAL PROBLEM: Metabolic encephalopathy. PHYSICAL EXAMINATION: VITAL SIGNS: Blood pressure 155/75, mean arterial pressure of 101, respiratory rate 18, temperature 98 with pulse rate of 65. The patient is awake, sitting in the chair comfortably. Seems to be a little bit confused. He follows commands fluently in Thai, not communicable in Mexican. He moves all four extremities against the gravity. No focal weakness. His electroencephalogram does not show any paroxysmal activities consistent with seizures. RECENT BLOOD WORKUP: WBC 13.5. Chemistry: Glucose 368, calcium 8.1, magnesium 2. RECOMMENDATIONS: Continue the present management and proper hydration. The patient is to be treated adequately with hydration as well as electrolytes. The patient will be followed while he is in the hospital. No further workup is needed from neurological point. Manas Lynch MD
--- NOTE | 2018-06-26 14:07 | PCM.PSYCH ---
Initial Psychiatric Evaluation - Initial Psychiatric Evaluation Chief Complaint (in patient's own words): "OK" History of Present Illness and Precipitating Events: The pt is seen, chart reviewed, case discussed Consult was requested for AMS He is a 78 y/o LM, translation is done by medical staff. Lives with his , retired. He is transferred from ICU yesterday and was "fine" per , but today he started to hallucinate, got disoriented and agitated. he couldn't sleep well He is now still disoriented, except for person. He claims he saw "fuel and fire" near his hospital bed. He says he hears voices, and is paranoid, but he is also poor historian Past psych hx: None. No drug, alcohol either Medical: says the same confusion happened after his heart surgery, too family hx: Denied Current Medications: Active Medications Generic Name Dose Route Start Last Admin Trade Name Natasha PRN Reason Stop Dose Admin Aspirin 81 mg 06/23/18 10:00 06/23/18 18:12 Ecotrin PO Not Given DAILY ALEX Clopidogrel Bisulfate 75 mg 06/23/18 10:00 06/23/18 18:15 Plavix PO Not Given DAILY ALEX Diltiazem HCl 180 mg 06/23/18 10:00 06/26/18 10:10 Cardizem Cd PO 180 mg DAILY ALEX Administration Famotidine 20 mg 06/23/18 10:00 06/26/18 10:12 Pepcid PO 20 mg DAILY ALEX Administration Ceftriaxone Sodium 2 gm/ 100 mls @ 100 mls/hr 06/22/18 18:00 06/25/18 17:51 Sodium Chloride IVPB 100 mls/hr Q24H ALEX Administration Protocol Insulin Aspart 0 unit 06/23/18 04:00 06/26/18 13:00 Novolog SC 8 units Q4H ALEX Administration Protocol Insulin Glargine 10 unit 06/24/18 22:00 06/26/18 10:13 Lantus SC 10 units Q12 ALEX Administration Levothyroxine Sodium 50 mcg 06/24/18 09:56 06/26/18 05:44 Synthroid PO 50 mcg DAILY@0630 ALEX Administration Metoprolol Succinate 25 mg 06/23/18 10:00 06/26/18 10:10 Toprol Xl PO 25 mg DAILY ALEX Administration Sevelamer Carbonate 800 mg 06/22/18 14:30 06/26/18 13:00 Renvela PO 800 mg TIDCC ALEX Administration Tamsulosin HCl 0.4 mg 06/23/18 10:00 06/26/18 10:13 Flomax PO 0.4 mg DAILY ALEX Administration Past Psychiatric History - Past Psychiatric History Previous Treatment History: None Pertinent Medical Hx (Current Medical&Sleep Prob, Allergies): Allergies Allergy/AdvReac Type Severity Reaction Status Date / Time No Known Allergies Allergy Verified 06/22/18 09:05 Aspirin [Ecotrin] 81 mg PO DAILY 06/22/18 Chlorthalidone [Hygroton] 25 mg PO DAILY 06/22/18 Cholecalciferol (Vitamin D3) [Vitamin D3] 5,000 unit PO DAILY 06/22/18 Clopidogrel [Plavix] 75 mg PO DAILY 06/22/18 Diltiazem HCl [Cartia Xt] 180 mg PO DAILY 06/22/18 Diltiazem HCl [Cartia Xt] 240 mg PO DAILY 06/22/18 Esomeprazole Magnesium [Nexium] 40 mg PO DAILY 06/22/18 Febuxostat [Uloric] 40 mg PO DAILY 06/22/18 Ferrous Sulfate [Feosol] 325 mg PO DAILY 06/22/18 Insulin Aspart/Insulin Aspar [Novolog Mix 70/30 (70/30 units/ml) 10 ml] 0 units SC TID 06/22/18 Levothyroxine Sodium 50 mcg PO DAILY 06/22/18 Linagliptin [Tradjenta] 5 mg PO DAILY 06/22/18 Losartan [Cozaar] 25 mg PO DAILY 06/22/18 Metoprolol Succinate 25 mg PO DAILY 06/22/18 Sevelamer [Renagel] 800 mg PO TID 06/22/18 Tamsulosin [Flomax] 0.4 mg PO DAILY 06/22/18 tiZANidine [Zanaflex] 2 mg PO TID 06/22/18 Review of Systems - Review of Systems Systems not reviewed;Unavailable: Altered Mental Status Mental Status Examination - Personal Presentation Personal Presentation: Looks stated age - Affect Affect: Constricted - Motor Activity Motor Activity: Calm - Reliability in Providing Information Reliability in Providing Information: Poor, due to cognitve impairment - Speech Speech: Disorganized - Mood Mood: Anxious - Formal Thought Process Formal Thought Process: Loosening of associations, Perservation - Cognitive Functions Orientation: Person Sensorium: Alert Attention/Concentration: Easily distracted Estimate of Intelligence: Average Judgement: Imparied, as evidence by: Poor judgement Memory: Recent impaired, as evidence by: Inability to recall events of the day, Remote impaired as evidenced by: Inability to recall sig life events - Risk Risk: Elopement, Diminished functioning - Strength & Assets Inventory Strength & Assets Inventory: Family support DSM 5 DX - DSM 5 DSM 5 Diagnosis: Delirium - Recommended/Plan of Treatment Treatment Recommendations and Plan of Treatment: As needed haldol 0.5 mg Inderal 10 mg may be used too if remains agitated Do not use benzos much bc of risk of confusion Check UA to r/o UTI (he had some bacteria last time) 32 min
--- NOTE | 2018-06-26 14:37 | EEG ---
DATE: 06/24/2018 This is a 16-channel electroencephalogram of awake and drowsy adult. During the study, photic stimulation was performed. Hyperventilation was not performed. The resting electroencephalogram consists of 20 to 30 low amplitude high theta activity seen at posterior dominant rhythm. Initially some movement artifact and muscle artifact contaminated with the background rhythm. Persistent frontal and muscle artifact noted from the beginning. The photic stimulation did not evoke driving response noted at 2 to 20 Hz. IMPRESSION: This is an abnormal electroencephalogram because of persistent slowing throughout the record suggestive of bilateral cerebral dysfunction. This is probably secondary to metabolic, vascular or degenerative process. Please correlate the findings with neurological and radiological studies. Manas Lynch MD
[2018-06-26] MEDS: cefTRIAXone 2 GM in Sodium Chloride 0.9% 100 ML IVPB SCH (17:30)
--- NOTE | 2018-06-26 18:11 | CP.PCM.PN ---
Subjective - Date & Time of Evaluation Date of Evaluation: 06/26/18 Time of Evaluation: 08:00 - Subjective Subjective: clinically same Objective - Vital Signs/Intake and Output Vital Signs (last 24 hours): Temp Pulse Resp BP Pulse Ox 98.2 F 75 20 152/68 H 98 06/26/18 16:00 06/26/18 16:00 06/26/18 16:00 06/26/18 16:00 06/26/18 16:00 Intake and Output: 06/26/18 06/26/18 06:59 18:59 Intake Total 1290 480 Output Total 5 Balance 1290 475 - Medications Medications: Current Medications Aspirin (Ecotrin) 81 mg PO DAILY [facility] Last Admin: 06/23/18 18:12 Dose: Not Given Clopidogrel Bisulfate (Plavix) 75 mg PO DAILY [facility] Last Admin: 06/23/18 18:15 Dose: Not Given Diltiazem HCl (Cardizem Cd) 180 mg PO DAILY [facility] Last Admin: 06/26/18 10:10 Dose: 180 mg Famotidine (Pepcid) 20 mg PO DAILY [facility] Last Admin: 06/26/18 10:12 Dose: 20 mg Haloperidol (Haldol) 0.5 mg PO Q6H PRN PRN Reason: Agitation Last Admin: 06/26/18 16:08 Dose: 0.5 mg Ceftriaxone Sodium 2 gm/ (Sodium Chloride) 100 mls @ 100 mls/hr IVPB Q24H [facility]; Protocol Last Admin: 06/26/18 17:30 Dose: 100 mls/hr Insulin Aspart (Novolog) 0 unit SC Q4H [facility]; Protocol Last Admin: 06/26/18 17:31 Dose: 6 units Insulin Glargine (Lantus) 10 unit SC Q12 [facility] Last Admin: 06/26/18 10:13 Dose: 10 units Levothyroxine Sodium (Synthroid) 50 mcg PO DAILY@0630 [facility] Last Admin: 06/26/18 05:44 Dose: 50 mcg Metoprolol Succinate (Toprol Xl) 25 mg PO DAILY [facility] Last Admin: 06/26/18 10:10 Dose: 25 mg Sevelamer Carbonate (Renvela) 800 mg PO TIDCC [facility] Last Admin: 06/26/18 17:31 Dose: 800 mg Tamsulosin HCl (Flomax) 0.4 mg PO DAILY [facility] Last Admin: 06/26/18 10:13 Dose: 0.4 mg - Labs Labs: 06/25/18 05:48 06/25/18 05:49 PT 11.0 SECONDS (9.7-12.2) 06/22/18 09:29 INR 1.0 06/22/18 09:29 APTT 32 SECONDS (21-34) 06/22/18 09:29 - Constitutional Appears: Well - Head Exam Head Exam: ATRAUMATIC, NORMAL INSPECTION, NORMOCEPHALIC - Eye Exam Eye Exam: EOMI, Normal appearance, PERRL Pupil Exam: NORMAL ACCOMODATION, PERRL - ENT Exam ENT Exam: Mucous Membranes Moist, Normal Exam - Neck Exam Neck Exam: Full ROM, Normal Inspection. absent: Lymphadenopathy - Respiratory Exam Respiratory Exam: Decreased Breath Sounds - Cardiovascular Exam Cardiovascular Exam: REGULAR RHYTHM, +S1, +S2 - GI/Abdominal Exam GI & Abdominal Exam: Soft, Diminished Bowel Sounds - Rectal Exam Rectal Exam: Deferred
--- NOTE | 2018-06-26 20:24 | CP.PCM.PN ---
Subjective - Date & Time of Evaluation Date of Evaluation: 06/26/18 Time of Evaluation: 15:00 - Subjective Subjective: dictated Objective - Vital Signs/Intake and Output Vital Signs (last 24 hours): Temp Pulse Resp BP Pulse Ox 98.2 F 75 20 152/68 H 98 06/26/18 16:00 06/26/18 16:00 06/26/18 16:00 06/26/18 16:00 06/26/18 16:00 Intake and Output: 06/26/18 06/27/18 18:59 06:59 Intake Total 480 Output Total 5 Balance 475 - Medications Medications: Current Medications Aspirin (Ecotrin) 81 mg PO DAILY [facility] Last Admin: 06/23/18 18:12 Dose: Not Given Clopidogrel Bisulfate (Plavix) 75 mg PO DAILY [facility] Last Admin: 06/23/18 18:15 Dose: Not Given Diltiazem HCl (Cardizem Cd) 180 mg PO DAILY [facility] Last Admin: 06/26/18 10:10 Dose: 180 mg Famotidine (Pepcid) 20 mg PO DAILY [facility] Last Admin: 06/26/18 10:12 Dose: 20 mg Haloperidol (Haldol) 0.5 mg PO Q6H PRN PRN Reason: Agitation Last Admin: 06/26/18 16:08 Dose: 0.5 mg Vancomycin/Sodium Chloride (Vancomycin 1 Gm/Ns 200 Ml) 1 gm in 200 mls @ 133 mls/hr IVPB ONCE ONE; Protocol Stop: 06/26/18 23:30 Insulin Aspart (Novolog) 0 unit SC Q4H [facility]; Protocol Last Admin: 06/26/18 17:31 Dose: 6 units Insulin Glargine (Lantus) 10 unit SC Q12 [facility] Last Admin: 06/26/18 10:13 Dose: 10 units Levothyroxine Sodium (Synthroid) 50 mcg PO DAILY@0630 [facility] Last Admin: 06/26/18 05:44 Dose: 50 mcg Metoprolol Succinate (Toprol Xl) 25 mg PO DAILY [facility] Last Admin: 06/26/18 10:10 Dose: 25 mg Sevelamer Carbonate (Renvela) 800 mg PO TIDCC [facility] Last Admin: 06/26/18 17:31 Dose: 800 mg Tamsulosin HCl (Flomax) 0.4 mg PO DAILY [facility] Last Admin: 06/26/18 10:13 Dose: 0.4 mg - Labs Labs: 06/25/18 05:48 06/25/18 05:49 PT 11.0 SECONDS (9.7-12.2) 06/22/18 09:29 INR 1.0 06/22/18 09:29 APTT 32 SECONDS (21-34) 06/22/18 09:29
[2018-06-26] MEDS ORDERED: Vancomycin 1 gm/NS 200 ml 1 GM/200 ML BAG IVPB ONE (22:00)
--- NOTE | 2018-06-26 23:50 | PN ---
DATE: 06/26/2018 INFECTIOUS DISEASE FOLLOWUP SUBJECTIVE: The patient was very agitated before my entry in the room. The was at the bedside. The asked me where the infection is and I told her that I wanted to screen the echocardiogram as he has a prosthetic valve and previous surgery. We have done blood cultures and urine culture which were negative, however, he had refused for echocardiogram, hence I could not do it. In front of his , he agreed for the echocardiogram and an order was placed again as the last time he gave a hard time to me and to the shop service technician and refused blankly. Today, he was agitated earlier. PHYSICAL EXAMINATION: VITAL SIGNS: T-max is 98.2, pulse is 75, blood pressure 152/68, respirations are 20. HEENT: Head is atraumatic, normocephalic. NECK: Supple. LUNGS: Clear. HEART: S1, S2 are regular. ABDOMEN: Soft, nontender. No guarding, no rigidity present. EXTREMITIES: Have trace edema. He has a sternal scar and I was waiting for the echo report; however, at this time when I am dictating my consult note, the nurse just called me that the blood culture came out Gram-positive rods, hence I have ordered one dose of vancomycin right now and we will follow further this, which was only an anaerobic vial. I am not sure if it is real or not. The patient does have a prosthetic valve and needs an echocardiogram, so we will follow the echo report and vancomycin one dose was given and we will reevaluate him again to see if he needs further vancomycin, what the ID and sensitivity of this Gram-positive rods is. We will follow. The patient did come in with altered mental status, respiratory failure, and sepsis, exact etiology of which was not sure, and his altered mental status did improve as hyperglycemia improved. Johanne Arteaga MD
[2018-06-27] MEDS: (Novolog) Insulin Aspart, Recombinant 100 u/ml 10 ml vial SC SCH ×6 (00:21→21:09)
[2018-06-27] MEDS: Levothyroxine 50 MCG TAB PO SCH (05:34)
[2018-06-27 06:42] LABS: BASO % 0.4 % (0.0-2.0); EOS # 0.2 K/uL (0.0-0.7); HEMOGLOBIN 11.9 g/dL (12.0-18.0); LYMPH # 1.2 K/uL (1.0-4.3); LYMPH % 10.5 % (20.0-40.0); MEAN CELL VOLUME 86.8 fL (80.0-94.0); MEAN CORPUSCULAR HEMOGLOBIN 29.3 pg (27.0-31.0); MEAN CORPUSCULAR HGB CONC 33.8 g/dL (33.0-37.0); MEAN PLATELET VOLUME 9.9 fL (7.2-11.7); MONO # 1.1 K/uL (0.0-0.8); MONO % 9.5 % (0.0-10.0); NEUT % 77.6 % (50.0-75.0); RBC 4.06 Mil/uL (4.40-5.90); RED CELL DISTRIBUTION WIDTH 14.4 % (11.5-14.5); WHITE BLOOD COUNT 11.6 K/uL (4.8-10.8)
[2018-06-27 06:56] LABS: GRANULAR CAST 5 /lpf (0-1); SQUAMOUS EPITHIAL 3 /hpf (0-5); URINE BACTERIA RARE (<OCC); URINE BILIRUBIN NEGATIVE (NEGATIVE); URINE BLOOD 2+ (NEGATIVE); URINE CLARITY Hazy (Clear); URINE COLOR Yellow (YELLOW); URINE GLUCOSE (UA) 3+ mg/dL (Normal); URINE LEUKOCYTE ESTERASE 3+ Leu/uL (Negative); URINE PROTEIN 2+ mg/dL (NEGATIVE); URINE UROBILINOGEN NORMAL mg/dL (0.2-1.0)
[2018-06-27 07:43] LABS: ALB/GLOB RATIO 0.9 (1.0-2.1); ALBUMIN 3.1 g/dL (3.5-5.0); CALCIUM 8.7 mg/dl (8.6-10.4)
[2018-06-27] MEDS: (Lantus) Insulin Glargine, Recombinant SC SCH ×2 (10:56→21:12)
[2018-06-27] MEDS: diltiaZEM 180 mg/24 Hours CD Cap PO SCH (11:00)
[2018-06-27] MEDS: Metoprolol Succinate 25 mg XL Tab PO SCH (11:00)
--- NOTE | 2018-06-27 14:04 | CARD ---
APPROVED REPORT Date of service: 06/27/2018 EXAM: Two-dimensional and M-mode echocardiogram with Doppler and color Doppler. Other Information Quality : GoodRhythm : Surgery/Intervention Status/Post Aortic Valve Replacement: Bioprosthetic RISK FACTORS Hypertension Diabetes 2D DIMENSIONS IVSd1.5 (0.7-1.1cm)LVDd4.7 (3.9-5.9cm) PWd1.6 (0.7-1.1cm)LA Asnovs46 (18-58mL) LVDs2.8 (2.5-4.0cm)FS (%) 41.0 % LVEF (%)71.8 (>50%)LVEF (Zhang's)61.74 % M-Mode DIMENSIONS Left Atrium (MM)4.23 (2.5-4.0cm)IVSd1.23 (0.7-1.1cm) Aortic Root3.59 (2.2-3.7cm)LVDd5.02 (4.0-5.6cm) Aortic Cusp Exc.1.05 (1.5-2.0cm)PWd1.23 (0.7-1.1cm) FS (%) 39 %LVDs3.04 (2.0-3.8cm) LVEF (%)70 (>50%) Aortic Valve AoV Peak Offwweel583.7cm/sAoV VTI63.2cmAO Peak GR.45mmHg AO Mean GR.26mmHg Mitral Valve MV E Uxgjkbyo37.1cm/sMV A Mznermax657.3cm/sE/A ratio0.7 TDI Lateral E' Peak V6.35cm/sMedial E' Peak V4.48cm/sE/Lateral E'12.0 E/Medial E'17.0 LEFT VENTRICLE The left ventricle is normal size. There is mild to moderate concentric left ventricular hypertrophy. The left ventricular function is normal. The left ventricular ejection fraction is within the normal range. No regional wall motion abnormalities noted. The left ventricular diastolic function is normal. No left ventricle thrombus noted on this study. There is no ventricular septal defect visualized. There is no left ventricular aneurysm. There is no mass noted in the left ventricle. RIGHT VENTRICLE The right ventricle is normal size. There is normal right ventricular wall thickness. The right ventricular systolic function is normal. ATRIA The left atrium is mildly dilated.LA volume is normal The right atrium size is normal. The interatrial septum is intact with no evidence for an atrial septal defect. AORTIC VALVE No aortic regurgitation is present. There is no aortic valvular stenosis. There is no aortic valvular vegetation. Doppler evidence of aortic regurgitation is normal for this valve. 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 The prosthetic aortic valve appears normal. Bioprosthesis leaflets are thickened, but move well. There is high flow , high gradient (44 mm of Hg) No valve area calculated MITRAL VALVE The mitral valve is normal in structure and function. There is no evidence of mitral valve prolapse. There is no mitral valve stenosis. There is no mitral valve regurgitation noted. TRICUSPID VALVE The tricuspid valve is normal in structure and function. There is no tricuspid valve regurgitation noted. There is no tricuspid valve prolapse or vegetation. There is no tricuspid valve stenosis. PULMONIC VALVE The pulmonary valve is normal in structure and function. There is no pulmonic valvular regurgitation. There is no pulmonic valvular stenosis. GREAT VESSELS The aortic root is normal in size. The ascending aorta is normal in size. The pulmonary artery is normal. The IVC is normal in size and collapses >50% with inspiration. PERICARDIAL EFFUSION The pericardium appears normal. There is no pleural effusion. <Conclusion> There is mild to moderate concentric left ventricular hypertrophy. The left ventricular function is normal. The left ventricular ejection fraction is within the normal range. No regional wall motion abnormalities noted. Doppler evidence of aortic regurgitation is normal for this valve. 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 The prosthetic aortic valve appears normal. Bioprosthesis leaflets are thickened, but move well. There is high flow , high gradient (44 mm of Hg) No valve area calculated
--- NOTE | 2018-06-27 14:34 | PN ---
DATE: 06/27/2018 NEUROLOGICAL PROBLEM: Toxic versus metabolic encephalopathy. PHYSICAL EXAMINATION: VITAL SIGNS: Blood pressure 155/69, mean arterial pressure of 97, respiratory rate 20, pulse rate 79 regular, temperature 98.3 degrees Fahrenheit. NEUROLOGICAL: The patient is comfortably lying down in the bed, awake and he knows he is in the hospital. Follows two-step command, still problem in crossing the midline following three-step commands. Speech is fluent in [place]. Moves all four extremities against the gravity. Examination does not show any meningismus at present. ASSESSMENT AND PLAN: The patient has been on antibiotics as per Infectious Disease. Continue proper hydration. Continue the present management. From neurological point of view, no further workup is needed at this time. I would like to sign him off for followup from neurological point of view. If any changes, do not hesitate to call me back for further evaluation if it is needed in the near future. Manas Lynch MD
[2018-06-27] MEDS: cefTRIAXone 2 GM in Sodium Chloride 0.9% 100 ML IVPB SCH (18:15)
[2018-06-27] MEDS ORDERED: Iohexol 240 (50 ml) PO ONE (20:45)
--- NOTE | 2018-06-27 23:13 | PN ---
DATE: 06/27/2018 INFECTIOUS DISEASE FOLLOWUP SUBJECTIVE: The patient was awake, alert. He was sitting by his . He has been agitated off and on. Still mental status not 100%. His blood culture came out GPBs, gram-positive bacilli. Yesterday, we did give one dose of vancomycin, but his creatinine is 2.6, cannot give any more. I left him on Rocephin at this time. He does have a lot of pyuria in the urine, and Renal is following. We will get UA, urine C and S again. Also since we do not know the etiology of the sepsis, we will get a CT scan done of abdomen and pelvis as he does have renal insufficiency and pyuria. We will follow. He is, however, improving. PHYSICAL EXAMINATION: VITAL SIGNS: T-max is 97.5; heart rate of 73, it was 55 before; blood pressure 105/69, respirations are 20. HEENT: Head is atraumatic and normocephalic. NECK: Supple. LUNGS: Decreased breath sounds bilaterally. HEART: S1 and S2 are regular. ABDOMEN: Soft, nontender. No guarding, no rigidity present. EXTREMITIES: Trace edema present. LABORATORY DATA: White count is 11.6 today, hemoglobin 11.9, hematocrit is 35.3, platelet count is 201. BUN is 47, creatinine is 2.6. His echo report showed bioprosthetic valve and some thickening of the valve, but it has been functioning okay. There was no any vegetation; however, his GPBs which grew is suspicious for bacterium. It is not finalized. We will wait for the final report. At this time, we will leave him on Rocephin as that has been improving his mental status. He remains with renal insufficiency. His sugars are still high, so he is not well controlled on those either. We will follow and leave Rocephin on as that was somehow discontinued and not given. We will follow. IMPRESSION AND PLAN: He is diabetic, came with fevers, altered mental status, and hyperglycemia. He is clinically improving slowly. He also was hypothyroid. Blood culture, final identification and sensitivity is pending at this time. We will follow. Johanne Arteaga MD [facility] # [id number]
[2018-06-28] MEDS: (Novolog) Insulin Aspart, Recombinant 100 u/ml 10 ml vial SC SCH ×7 (00:04→23:53)
[2018-06-28] MEDS: Levothyroxine 50 MCG TAB PO SCH (06:08)
[2018-06-28] MEDS: Metoprolol Succinate 25 mg XL Tab PO SCH (09:35)
[2018-06-28] MEDS: diltiaZEM 180 mg/24 Hours CD Cap PO SCH (09:35)
[2018-06-28] MEDS: (Lantus) Insulin Glargine, Recombinant SC SCH ×2 (09:36→21:07)
--- NOTE | 2018-06-28 12:27 | CP.PCM.PN ---
Subjective - Date & Time of Evaluation Date of Evaluation: 06/28/18 Time of Evaluation: 07:30 - Subjective Subjective: clinically same Objective - Vital Signs/Intake and Output Vital Signs (last 24 hours): Temp Pulse Resp BP Pulse Ox 99.0 F 67 20 170/74 H 97 06/28/18 07:32 06/28/18 07:32 06/28/18 07:32 06/28/18 07:32 06/28/18 07:32 Intake and Output: 06/28/18 06/28/18 06:59 18:59 Intake Total 890 Output Total 500 Balance 390 - Medications Medications: Current Medications Aspirin (Ecotrin) 81 mg PO DAILY [facility] Last Admin: 06/28/18 09:35 Dose: 81 mg Clopidogrel Bisulfate (Plavix) 75 mg PO DAILY [facility] Last Admin: 06/23/18 18:15 Dose: Not Given Diltiazem HCl (Cardizem Cd) 180 mg PO DAILY [facility] Last Admin: 06/28/18 09:35 Dose: 180 mg Famotidine (Pepcid) 20 mg PO DAILY [facility] Last Admin: 06/28/18 09:35 Dose: 20 mg Haloperidol (Haldol) 0.5 mg PO Q6H PRN PRN Reason: Agitation Last Admin: 06/26/18 23:14 Dose: 0.5 mg Ceftriaxone Sodium 2 gm/ (Sodium Chloride) 100 mls @ 100 mls/hr IVPB Q24H [facility]; Protocol Last Admin: 06/27/18 18:15 Dose: 100 mls/hr Insulin Aspart (Novolog) 0 unit SC Q4H [facility]; Protocol Last Admin: 06/28/18 08:51 Dose: 2 units Insulin Glargine (Lantus) 10 unit SC Q12 [facility] Last Admin: 06/28/18 09:36 Dose: 10 units Levothyroxine Sodium (Synthroid) 50 mcg PO DAILY@0630 [facility] Last Admin: 06/28/18 06:08 Dose: 50 mcg Metoprolol Succinate (Toprol Xl) 25 mg PO DAILY [facility] Last Admin: 06/28/18 09:35 Dose: 25 mg Tamsulosin HCl (Flomax) 0.4 mg PO DAILY [facility] Last Admin: 06/28/18 09:35 Dose: 0.4 mg - Labs Labs: 06/27/18 06:29 06/27/18 06:29 PT 11.0 SECONDS (9.7-12.2) 06/22/18 09:29 INR 1.0 06/22/18 09:29 APTT 32 SECONDS (21-34) 06/22/18 09:29
--- NOTE | 2018-06-28 13:54 | CT ---
Date of service: 06/27/2018 PROCEDURE: CT Chest, Abdomen and Pelvis without intravenous contrast HISTORY: sepsis etiology unclear,pyuria and renal failure COMPARISON: 06/22/2018. TECHNIQUE: CT scan of the chest, abdomen and pelvis was performed without administration of intravenous contrast. Oral contrast was administered. Coronal and sagittal reformatted images were obtained. Radiation dose: Total exam DLP = 1205.45 mGy-cm. This CT exam was performed using one or more of the following dose reduction techniques: Automated exposure control, adjustment of the mA and/or kV according to patient size, and/or use of iterative reconstruction technique. FINDINGS: CT CHEST WITHOUT CONTRAST: LUNGS: The lungs are well inflated. There is mild centrilobular emphysema in the upper lobes. Biapical pleural parenchymal scarring, worse on the right. No evidence for nodule, mass or consolidation. There is linear atelectasis/scarring, worse in the lower lobes. There are no endobronchial lesions. MEDIASTINUM: No pericardial effusion. Status post CABG. Normal caliber aorta and pulmonary arterial trunk. Normal size heart. LYMPH NODES: Subcentimeter mediastinal lymph nodes are likely reactive in etiology. PLEURA: No pneumothorax. No pleural fluid. BONES: Within normal limits for the patient's age. OTHER FINDINGS: None. CT ABDOMEN AND PELVIS: LIVER: Normal in size. No gross lesion or ductal dilatation. GALLBLADDER AND BILE DUCTS: Gallstones. No wall thickening or pericholecystic fluid. PANCREAS: Mild diffuse atrophy. No gross lesion or ductal dilatation. SPLEEN: Normal in size. ADRENALS: No discrete nodule. KIDNEYS AND URETERS: Normal in size without nephrolithiasis. No hydronephrosis. There is a 2.0 cm simple cyst in the right interpolar region. VASCULATURE: No aortic aneurysm. BOWEL: The small bowel loops are normal in caliber. There is left colonic diverticulosis without CT evidence for acute diverticulitis. No bowel wall thickening or obstruction. APPENDIX: Normal appendix. PERITONEUM: No free fluid. No free air. LYMPH NODES: No enlarged lymph nodes. BLADDER: There is moderate circumferential mural thickening of the urinary bladder wall. REPRODUCTIVE: The prostate gland is normal in size. BONES: No acute fracture. Within normal limits for the patient's age. OTHER FINDINGS: None. IMPRESSION: 1. Moderate circumferential mural thickening of the urinary bladder wall could represent acute cystitis in the appropriate clinical setting. Please correlate with urine analysis. 2. No evidence for pneumonia, pleural effusion or acute finding in the chest. Mild centrilobular emphysema with upper lobe predominance. 3. Left colonic diverticulosis without CT evidence for acute diverticulitis. 4. Cholelithiasis. A preliminary report was provided by [facility].
[2018-06-28] MEDS: cefTRIAXone 2 GM in Sodium Chloride 0.9% 100 ML IVPB SCH (17:30)
--- NOTE | 2018-06-28 19:05 | CP.PCM.PN ---
Subjective - Date & Time of Evaluation Date of Evaluation: 06/28/18 Time of Evaluation: 15:00 - Subjective Subjective: dictated Objective - Vital Signs/Intake and Output Vital Signs (last 24 hours): Temp Pulse Resp BP Pulse Ox 98.7 F 58 L 20 172/68 H 99 06/28/18 16:00 06/28/18 16:00 06/28/18 16:00 06/28/18 16:00 06/28/18 16:00 Intake and Output: 06/28/18 06/29/18 18:59 06:59 Intake Total 500 Balance 500 - Medications Medications: Current Medications Aspirin (Ecotrin) 81 mg PO DAILY [facility] Last Admin: 06/28/18 09:35 Dose: 81 mg Clopidogrel Bisulfate (Plavix) 75 mg PO DAILY [facility] Last Admin: 06/23/18 18:15 Dose: Not Given Diltiazem HCl (Cardizem Cd) 180 mg PO DAILY [facility] Last Admin: 06/28/18 09:35 Dose: 180 mg Famotidine (Pepcid) 20 mg PO DAILY [facility] Last Admin: 06/28/18 09:35 Dose: 20 mg Haloperidol (Haldol) 0.5 mg PO Q6H PRN PRN Reason: Agitation Last Admin: 06/26/18 23:14 Dose: 0.5 mg Ceftriaxone Sodium 2 gm/ (Sodium Chloride) 100 mls @ 100 mls/hr IVPB Q24H [facility]; Protocol Last Admin: 06/28/18 17:30 Dose: 100 mls/hr Insulin Aspart (Novolog) 0 unit SC Q4H [facility]; Protocol Last Admin: 06/28/18 16:00 Dose: 12 units Insulin Glargine (Lantus) 10 unit SC Q12 [facility] Last Admin: 06/28/18 09:36 Dose: 10 units Levothyroxine Sodium (Synthroid) 50 mcg PO DAILY@0630 [facility] Last Admin: 06/28/18 06:08 Dose: 50 mcg Metoprolol Succinate (Toprol Xl) 25 mg PO DAILY [facility] Last Admin: 06/28/18 09:35 Dose: 25 mg Tamsulosin HCl (Flomax) 0.4 mg PO DAILY [facility] Last Admin: 06/28/18 09:35 Dose: 0.4 mg - Labs Labs: 06/27/18 06:29 06/27/18 06:29 PT 11.0 SECONDS (9.7-12.2) 06/22/18 09:29 INR 1.0 06/22/18 09:29 APTT 32 SECONDS (21-34) 06/22/18 09:29
--- NOTE | 2018-06-28 22:02 | PN ---
DATE: 06/28/2018 SUBJECTIVE: The patient was seen yesterday. We had ordered blood cultures and urine culture. His last blood culture was one set Corynebacterium which I think is a contaminant. The repeat cultures are pending. He is more coherent today and denies any urinary symptoms. We did CAT scan yesterday, and the CAT scan came out to be and the reports I am going to go through it. He is afebrile. PHYSICAL EXAMINATION: VITAL SIGNS: T-max is 98.7, heart rate of 58, blood pressure 172/68, respirations are 20. HEENT: Head is atraumatic, normocephalic. NECK: Supple. LUNGS: Clear. Decreased breath sounds bilaterally. He has a midsternal old scar of the cardiac surgery. ABDOMEN: Soft, nontender. No guarding, no rigidity present. No suprapubic tenderness present. EXTREMITIES: Have no edema. LABORATORY DATA: White count is 11.6, hemoglobin 11.9, this is from yesterday. The chemistry shows his glucose again still remains high. ASSESSMENT AND PLAN: Blood culture was Corynebacterium from one set. The second set was negative. The repeat cultures which were done on 06/27/2018 are negative so far. We will follow those. His kidney function last was 2.6 yesterday. So, I have stayed away from vancomycin. He only got one dose. Echocardiogram was noted and there is no vegetation, just thickened prosthetic valve. So at this time, we will continue with Rocephin. I am waiting for the urine culture report as he did come in with altered mental status and sepsis and is improving on current treatment. Johanne Arteaga MD
[2018-06-29] MEDS: (Novolog) Insulin Aspart, Recombinant 100 u/ml 10 ml vial SC SCH ×5 (04:15→21:44)
[2018-06-29] MEDS: Levothyroxine 50 MCG TAB PO SCH (05:39)
[2018-06-29] MEDS: diltiaZEM 180 mg/24 Hours CD Cap PO SCH (10:01)
[2018-06-29] MEDS: Metoprolol Succinate 25 mg XL Tab PO SCH (10:01)
[2018-06-29] MEDS: (Lantus) Insulin Glargine, Recombinant SC SCH ×2 (10:01→21:43)
--- NOTE | 2018-06-29 12:41 | CP.PCM.PN ---
Subjective - Date & Time of Evaluation Date of Evaluation: 06/29/18 Time of Evaluation: 07:30 - Subjective Subjective: clinically same Objective - Vital Signs/Intake and Output Vital Signs (last 24 hours): Temp Pulse Resp BP Pulse Ox 98.3 F 80 20 185/77 H 97 06/29/18 08:29 06/29/18 08:29 06/29/18 08:29 06/29/18 08:29 06/29/18 08:29 Intake and Output: 06/29/18 06/29/18 06:59 18:59 Intake Total 200 Balance 200 - Medications Medications: Current Medications Aspirin (Ecotrin) 81 mg PO DAILY [facility] Last Admin: 06/29/18 10:01 Dose: 81 mg Clopidogrel Bisulfate (Plavix) 75 mg PO DAILY [facility] Last Admin: 06/29/18 10:01 Dose: 75 mg Diltiazem HCl (Cardizem Cd) 180 mg PO DAILY [facility] Last Admin: 06/29/18 10:01 Dose: 180 mg Famotidine (Pepcid) 20 mg PO DAILY [facility] Last Admin: 06/29/18 10:01 Dose: 20 mg Haloperidol (Haldol) 0.5 mg PO Q6H PRN PRN Reason: Agitation Last Admin: 06/26/18 23:14 Dose: 0.5 mg Ceftriaxone Sodium 2 gm/ (Sodium Chloride) 100 mls @ 100 mls/hr IVPB Q24H [facility]; Protocol Last Admin: 06/28/18 17:30 Dose: 100 mls/hr Insulin Aspart (Novolog) 0 unit SC Q4H [facility]; Protocol Last Admin: 06/29/18 11:40 Dose: 10 units Insulin Glargine (Lantus) 10 unit SC Q12 [facility] Last Admin: 06/29/18 10:01 Dose: 10 units Levothyroxine Sodium (Synthroid) 50 mcg PO DAILY@0630 [facility] Last Admin: 06/29/18 05:39 Dose: 50 mcg Metoprolol Succinate (Toprol Xl) 25 mg PO DAILY [facility] Last Admin: 06/29/18 10:01 Dose: 25 mg Tamsulosin HCl (Flomax) 0.4 mg PO DAILY [facility] Last Admin: 06/29/18 10:01 Dose: 0.4 mg - Labs Labs: 06/27/18 06:29 06/27/18 06:29 PT 11.0 SECONDS (9.7-12.2) 06/22/18 09:29 INR 1.0 06/22/18 09:29 APTT 32 SECONDS (21-34) 06/22/18 09:29
[2018-06-29] MEDS: cefTRIAXone 2 GM in Sodium Chloride 0.9% 100 ML IVPB SCH ×2 (17:23→18:20)
--- NOTE | 2018-06-29 18:48 | CP.PCM.PN ---
Subjective - Date & Time of Evaluation Date of Evaluation: 06/29/18 Time of Evaluation: 15:00 - Subjective Subjective: dictated Objective - Vital Signs/Intake and Output Vital Signs (last 24 hours): Temp Pulse Resp BP Pulse Ox 97.8 F 62 20 160/63 H 98 06/29/18 16:48 06/29/18 16:48 06/29/18 16:48 06/29/18 16:48 06/29/18 16:48 Intake and Output: 06/29/18 06/29/18 06:59 18:59 Intake Total 200 400 Balance 200 400 - Medications Medications: Current Medications Aspirin (Ecotrin) 81 mg PO DAILY [facility] Last Admin: 06/29/18 10:01 Dose: 81 mg Cefpodoxime Proxetil (Vantin) 200 mg PO BID [facility]; Protocol Stop: 07/02/18 18:00 Clopidogrel Bisulfate (Plavix) 75 mg PO DAILY [facility] Last Admin: 06/29/18 10:01 Dose: 75 mg Diltiazem HCl (Cardizem Cd) 180 mg PO DAILY [facility] Last Admin: 06/29/18 10:01 Dose: 180 mg Famotidine (Pepcid) 20 mg PO DAILY [facility] Last Admin: 06/29/18 10:01 Dose: 20 mg Haloperidol (Haldol) 0.5 mg PO Q6H PRN PRN Reason: Agitation Last Admin: 06/26/18 23:14 Dose: 0.5 mg Insulin Aspart (Novolog) 0 unit SC ACHS [facility]; Protocol Insulin Glargine (Lantus) 10 unit SC Q12 [facility] Last Admin: 06/29/18 10:01 Dose: 10 units Levothyroxine Sodium (Synthroid) 50 mcg PO DAILY@0630 [facility] Last Admin: 06/29/18 05:39 Dose: 50 mcg Metoprolol Succinate (Toprol Xl) 25 mg PO DAILY [facility] Last Admin: 06/29/18 10:01 Dose: 25 mg Tamsulosin HCl (Flomax) 0.4 mg PO DAILY [facility] Last Admin: 06/29/18 10:01 Dose: 0.4 mg - Labs Labs: 06/27/18 06:29 06/27/18 06:29 PT 11.0 SECONDS (9.7-12.2) 06/22/18 09:29 INR 1.0 06/22/18 09:29 APTT 32 SECONDS (21-34) 06/22/18 09:29
[2018-06-29] MEDS: Cefpodoxime (Vantin) 200 mg Tab PO SCH (21:44)
--- NOTE | 2018-06-29 22:43 | PN ---
DATE: 06/29/2018 INFECTIOUS DISEASE FOLLOWUP SUBJECTIVE: The patient is afebrile. He is feeling better but he took help of a mid level project manager. He wanted to tell me something, and he says that since he had the cardiac surgery, he always has pain in the chest when he presses, so I told him it is probably muscular, not from the heart. He said the antibiotic was making him feel better. However, later the nurse called me that the IV hep-lock came out and they are not able to get it, so we will switch to Vantin. I was still looking for a urine culture report from 06/28/2018 which is pending. OBJECTIVE: VITAL SIGNS: T-max is 97.8, pulse 62, blood pressure 160/63, respirations are 20, saturations 98%. GENERAL: He is alert, awake now. There is no altered mental status. He is able to communicate. LUNGS: Clear. HEART: S1, S2 regular. ABDOMEN: Soft, nontender. No guarding. No rigidity present. EXTREMITIES: Have trace edema. However, his sugar last reported is still 332. Urine culture report is still pending. Blood cultures were negative. One set had Corynebacterium on 06/22/2018, which I think is probably a contaminant. 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 At this time, since the hep-lock came out, I will put him on Vantin. I discussed with the nurse 200 b.i.d. for 3 days, and he is much improved. Sugars need to be more regulated, and he needs to follow with the sterile instrument technician as he just has a prosthetic valve, and he did come in with respiratory failure and high sugar, altered mental status, and has cystitis as per the CAT scan. Johanne Arteaga MD
[2018-06-30] MEDS: Levothyroxine 50 MCG TAB PO SCH (05:44)
[2018-06-30] MEDS: (Novolog) Insulin Aspart, Recombinant 100 u/ml 10 ml vial SC SCH ×4 (08:30→22:51)
[2018-06-30] MEDS: Metoprolol Succinate 25 mg XL Tab PO SCH (11:00)
[2018-06-30] MEDS: (Lantus) Insulin Glargine, Recombinant SC SCH ×2 (11:00→22:51)
[2018-06-30] MEDS: Cefpodoxime (Vantin) 200 mg Tab PO SCH ×2 (11:00→17:18)
[2018-06-30] MEDS: diltiaZEM 180 mg/24 Hours CD Cap PO SCH (11:00)
--- NOTE | 2018-06-30 16:00 | CP.PCM.PN ---
Subjective - Date & Time of Evaluation Date of Evaluation: 06/30/18 Time of Evaluation: 07:45 - Subjective Subjective: clinically same Objective - Vital Signs/Intake and Output Vital Signs (last 24 hours): Temp Pulse Resp BP Pulse Ox 98.3 F 69 20 186/76 H 97 06/30/18 08:31 06/30/18 08:31 06/30/18 08:31 06/30/18 08:31 06/30/18 08:31 Intake and Output: 06/30/18 06/30/18 06:59 18:59 Intake Total 120 Output Total 400 Balance -280 - Medications Medications: Current Medications Aspirin (Ecotrin) 81 mg PO DAILY [facility] Last Admin: 06/30/18 11:00 Dose: 81 mg Cefpodoxime Proxetil (Vantin) 200 mg PO BID [facility]; Protocol Stop: 07/02/18 18:00 Last Admin: 06/30/18 11:00 Dose: 200 mg Clopidogrel Bisulfate (Plavix) 75 mg PO DAILY [facility] Last Admin: 06/30/18 11:00 Dose: 75 mg Diltiazem HCl (Cardizem Cd) 180 mg PO DAILY [facility] Last Admin: 06/30/18 11:00 Dose: 180 mg Famotidine (Pepcid) 20 mg PO DAILY [facility] Last Admin: 06/30/18 11:00 Dose: 20 mg Haloperidol (Haldol) 0.5 mg PO Q6H PRN PRN Reason: Agitation Last Admin: 06/26/18 23:14 Dose: 0.5 mg Insulin Aspart (Novolog) 0 unit SC ACHS [facility]; Protocol Last Admin: 06/30/18 12:30 Dose: 6 u Insulin Glargine (Lantus) 10 unit SC Q12 [facility] Last Admin: 06/30/18 11:00 Dose: 10 units Levothyroxine Sodium (Synthroid) 50 mcg PO DAILY@0630 [facility] Last Admin: 06/30/18 05:44 Dose: 50 mcg Metoprolol Succinate (Toprol Xl) 25 mg PO DAILY [facility] Last Admin: 06/30/18 11:00 Dose: 25 mg Tamsulosin HCl (Flomax) 0.4 mg PO DAILY [facility] Last Admin: 06/30/18 11:00 Dose: 0.4 mg - Labs Labs: 06/27/18 06:29 06/27/18 06:29 PT 11.0 SECONDS (9.7-12.2) 06/22/18 09:29 INR 1.0 06/22/18 09:29 APTT 32 SECONDS (21-34) 06/22/18 09:29
[2018-07-01] MEDS: Levothyroxine 50 MCG TAB PO SCH (05:32)
[2018-07-01] MEDS: (Novolog) Insulin Aspart, Recombinant 100 u/ml 10 ml vial SC SCH ×4 (08:02→22:05)
[2018-07-01] MEDS: diltiaZEM 180 mg/24 Hours CD Cap PO SCH (09:50)
[2018-07-01] MEDS: Metoprolol Succinate 25 mg XL Tab PO SCH (09:50)
[2018-07-01] MEDS: (Lantus) Insulin Glargine, Recombinant SC SCH ×2 (09:50→21:28)
[2018-07-01] MEDS: Cefpodoxime (Vantin) 200 mg Tab PO SCH ×2 (09:51→17:07)
--- NOTE | 2018-07-01 15:46 | CP.PCM.PN ---
Subjective - Date & Time of Evaluation Date of Evaluation: 07/01/18 Time of Evaluation: 07:45 - Subjective Subjective: clinically same Objective - Vital Signs/Intake and Output Vital Signs (last 24 hours): Temp Pulse Resp BP Pulse Ox 97.8 F 62 20 165/81 H 97 07/01/18 07:29 07/01/18 07:29 07/01/18 07:29 07/01/18 07:29 07/01/18 07:29 Intake and Output: 07/01/18 07/01/18 06:59 18:59 Intake Total 720 300 Output Total 600 Balance 120 300 - Medications Medications: Current Medications Aspirin (Ecotrin) 81 mg PO DAILY [facility] Last Admin: 07/01/18 09:50 Dose: 81 mg Cefpodoxime Proxetil (Vantin) 200 mg PO BID [facility]; Protocol Stop: 07/02/18 18:00 Last Admin: 07/01/18 09:51 Dose: 200 mg Clopidogrel Bisulfate (Plavix) 75 mg PO DAILY [facility] Last Admin: 07/01/18 09:51 Dose: 75 mg Diltiazem HCl (Cardizem Cd) 180 mg PO DAILY [facility] Last Admin: 07/01/18 09:50 Dose: 180 mg Famotidine (Pepcid) 20 mg PO DAILY [facility] Last Admin: 07/01/18 09:50 Dose: 20 mg Haloperidol (Haldol) 0.5 mg PO Q6H PRN PRN Reason: Agitation Last Admin: 06/26/18 23:14 Dose: 0.5 mg Insulin Aspart (Novolog) 0 unit SC ACHS [facility]; Protocol Last Admin: 07/01/18 11:27 Dose: 4 u Insulin Glargine (Lantus) 10 unit SC Q12 [facility] Last Admin: 07/01/18 09:50 Dose: 10 units Levothyroxine Sodium (Synthroid) 50 mcg PO DAILY@0630 [facility] Last Admin: 07/01/18 05:32 Dose: 50 mcg Metoprolol Succinate (Toprol Xl) 25 mg PO DAILY [facility] Last Admin: 07/01/18 09:50 Dose: 25 mg Tamsulosin HCl (Flomax) 0.4 mg PO DAILY [facility] Last Admin: 07/01/18 09:51 Dose: 0.4 mg - Labs Labs: 06/27/18 06:29 10/11/18 06:29 PT 11.0 SECONDS (9.7-12.2) 06/22/18 09:29 INR 1.0 06/22/18 09:29 APTT 32 SECONDS (21-34) 06/22/18 09:29
--- NOTE | 2018-07-01 19:34 | CP.PCM.PN ---
Subjective - Date & Time of Evaluation Date of Evaluation: 07/01/18 Time of Evaluation: 16:00 - Subjective Subjective: dictated Objective - Vital Signs/Intake and Output Vital Signs (last 24 hours): Temp Pulse Resp BP Pulse Ox 98.4 F 65 20 153/67 H 97 07/01/18 16:00 07/01/18 16:00 07/01/18 16:00 07/01/18 16:00 07/01/18 16:00 Intake and Output: 07/01/18 07/02/18 18:59 06:59 Intake Total 300 Balance 300 - Medications Medications: Current Medications Aspirin (Ecotrin) 81 mg PO DAILY [facility] Last Admin: 07/01/18 09:50 Dose: 81 mg Cefpodoxime Proxetil (Vantin) 200 mg PO BID [facility]; Protocol Stop: 07/02/18 18:00 Last Admin: 07/01/18 17:07 Dose: 200 mg Clopidogrel Bisulfate (Plavix) 75 mg PO DAILY [facility] Last Admin: 07/01/18 09:51 Dose: 75 mg Diltiazem HCl (Cardizem Cd) 180 mg PO DAILY [facility] Last Admin: 07/01/18 09:50 Dose: 180 mg Famotidine (Pepcid) 20 mg PO DAILY [facility] Last Admin: 07/01/18 09:50 Dose: 20 mg Fluconazole (Diflucan) 100 mg PO DAILY [facility]; Protocol Haloperidol (Haldol) 0.5 mg PO Q6H PRN PRN Reason: Agitation Last Admin: 06/26/18 23:14 Dose: 0.5 mg Insulin Aspart (Novolog) 0 unit SC ACHS [facility]; Protocol Last Admin: 07/01/18 17:08 Dose: 8 u Insulin Glargine (Lantus) 10 unit SC Q12 [facility] Last Admin: 07/01/18 09:50 Dose: 10 units Levothyroxine Sodium (Synthroid) 50 mcg PO DAILY@0630 [facility] Last Admin: 07/01/18 05:32 Dose: 50 mcg Metoprolol Succinate (Toprol Xl) 25 mg PO DAILY [facility] Last Admin: 07/01/18 09:50 Dose: 25 mg Tamsulosin HCl (Flomax) 0.4 mg PO DAILY [facility] Last Admin: 07/01/18 09:51 Dose: 0.4 mg - Labs Labs: 06/27/18 06:29 06/27/18 06:29 PT 11.0 SECONDS (9.7-12.2) 06/22/18 09:29 INR 1.0 06/22/18 09:29 APTT 32 SECONDS (21-34) 06/22/18 09:29
--- NOTE | 2018-07-02 01:09 | PN ---
DATE: 07/01/2018 SUBJECTIVE: The patient is feeling better. He states when he gets the medicine, he feels a lot better. Otherwise, he was having chest tightness before and is improving with antibiotics. Also, the nurse called me that he is hepatitis C positive and is waiting for his urine culture. He is more coherent. His was at the bedside and tells me that he is from [facility] and he came here at the age of 41s. I am wondering if he has never had transfusion till last operation around that time when he got the heart surgery done, which was two years ago. I doubt that is the cause of hepatitis C. I will cope the report. He denies any nausea or vomiting. He is feeling lot better. PHYSICAL EXAMINATION: VITAL SIGNS: T-max is 98.4, pulse 65, blood pressure 153/67, respirations are 20. HEENT: Head is atraumatic and normocephalic. NECK: Supple. LUNGS: Clear. Decreased breath sounds. HEART: S1 and S2 are regular. ABDOMEN: Soft. Nontender. No guarding, no rigidity present. EXTREMITIES: Have no edema. LABORATORY DATA: Labs are noted. Labs show white count is 11.6. This is from 06/27/2018. We have not done any results after that. The micro shows yeast. Urine culture shows yeast. ASSESSMENT AND PLAN: He did have Corynebacterium, but several cultures have been negative, so I have assumed it was a contaminant even though he has a prosthetic heart valve. I went to see the serology as I do not know why this and he is hepatitis C positive. I do not see any reports of the hepatitis C, so I am not sure if they told me about the right patient or it was some other patient. We will call back to the floor at this time, and I would add Diflucan and repeat the labs tomorrow and continue with the vent in. 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 No evidence of nodule mass or consolidation. There is linear atelectasis, worse in the lower lobe. There are no endobronchial lesions. So I think, we will leave ventilator in on and give him some Diflucan for three days and we will follow. Johanne Arteaga MD
[2018-07-02] MEDS: Levothyroxine 50 MCG TAB PO SCH (06:02)
[2018-07-02 07:27] VITALS: PULSE 60
[2018-07-02] MEDS: (Novolog) Insulin Aspart, Recombinant 100 u/ml 10 ml vial SC SCH ×2 (08:03→11:18)
[2018-07-02] MEDS: Cefpodoxime (Vantin) 200 mg Tab PO SCH (09:29)
[2018-07-02] MEDS: diltiaZEM 180 mg/24 Hours CD Cap PO SCH (09:29)
[2018-07-02] MEDS: (Lantus) Insulin Glargine, Recombinant SC SCH (09:30)
[2018-07-02] MEDS: Metoprolol Succinate 25 mg XL Tab PO SCH (09:30)
--- NOTE | 2018-07-02 12:48 | CP.PCM.PN ---
Subjective - Date & Time of Evaluation Date of Evaluation: 07/02/18 Time of Evaluation: 07:45 - Subjective Subjective: clinically same Objective - Vital Signs/Intake and Output Vital Signs (last 24 hours): Temp Pulse Resp BP Pulse Ox 98.5 F 60 20 156/77 H 98 07/02/18 07:00 07/02/18 07:00 07/02/18 07:00 07/02/18 07:00 07/02/18 07:00 Intake and Output: 07/02/18 07/02/18 06:59 18:59 Intake Total 540 Output Total 400 Balance 140 - Medications Medications: Current Medications Aspirin (Ecotrin) 81 mg PO DAILY [facility] Last Admin: 07/02/18 09:30 Dose: 81 mg Cefpodoxime Proxetil (Vantin) 200 mg PO BID [facility]; Protocol Stop: 07/02/18 18:00 Last Admin: 07/02/18 09:29 Dose: 200 mg Clopidogrel Bisulfate (Plavix) 75 mg PO DAILY [facility] Last Admin: 07/02/18 09:29 Dose: 75 mg Diltiazem HCl (Cardizem Cd) 180 mg PO DAILY [facility] Last Admin: 07/02/18 09:29 Dose: 180 mg Famotidine (Pepcid) 20 mg PO DAILY [facility] Last Admin: 07/02/18 09:29 Dose: 20 mg Fluconazole (Diflucan) 100 mg PO DAILY [facility]; Protocol Last Admin: 07/02/18 09:30 Dose: 100 mg Haloperidol (Haldol) 0.5 mg PO Q6H PRN PRN Reason: Agitation Last Admin: 06/26/18 23:14 Dose: 0.5 mg Insulin Aspart (Novolog) 0 unit SC ACHS [facility]; Protocol Last Admin: 07/02/18 11:18 Dose: 12 u Insulin Glargine (Lantus) 10 unit SC Q12 [facility] Last Admin: 07/02/18 09:30 Dose: 10 units Levothyroxine Sodium (Synthroid) 50 mcg PO DAILY@0630 [facility] Last Admin: 07/02/18 06:02 Dose: 50 mcg Metoprolol Succinate (Toprol Xl) 25 mg PO DAILY [facility] Last Admin: 07/02/18 09:30 Dose: 25 mg Tamsulosin HCl (Flomax) 0.4 mg PO DAILY [facility] Last Admin: 10/16/18 09:29 Dose: 0.4 mg - Labs Labs: 06/27/18 06:29 06/27/18 06:29 PT 11.0 SECONDS (9.7-12.2) 06/22/18 09:29 INR 1.0 06/22/18 09:29 APTT 32 SECONDS (21-34) 06/22/18 09:29
[2018-07-02 15:59] VITALS: BP 156/74; TEMP 97.5; O2SAT 100
--- NOTE | 2018-07-02 16:28 | CP.PCM.PN ---
Subjective - Date & Time of Evaluation Date of Evaluation: 07/02/18 Time of Evaluation: 15:00 - Subjective Subjective: Patient is feeling better bh sugars, he is alert no more altered mental status. i rectified with his that he does not have any Hepatitis issues but need to follow with Dr Aragon for sugar and cardiology issues Objective - Vital Signs/Intake and Output Vital Signs (last 24 hours): Temp Pulse Resp BP Pulse Ox 97.5 F L 60 20 156/74 H 100 07/02/18 15:58 07/02/18 15:58 07/02/18 15:58 07/02/18 15:58 07/02/18 15:58 Intake and Output: 07/02/18 07/02/18 06:59 18:59 Intake Total 540 300 Output Total 400 Balance 140 300 - Medications Medications: Current Medications Aspirin (Ecotrin) 81 mg PO DAILY [facility] Last Admin: 07/02/18 09:30 Dose: 81 mg Cefpodoxime Proxetil (Vantin) 200 mg PO BID [facility]; Protocol Stop: 07/02/18 18:00 Last Admin: 07/02/18 09:29 Dose: 200 mg Clopidogrel Bisulfate (Plavix) 75 mg PO DAILY [facility] Last Admin: 07/02/18 09:29 Dose: 75 mg Diltiazem HCl (Cardizem Cd) 180 mg PO DAILY [facility] Last Admin: 07/02/18 09:29 Dose: 180 mg Famotidine (Pepcid) 20 mg PO DAILY [facility] Last Admin: 07/02/18 09:29 Dose: 20 mg Fluconazole (Diflucan) 100 mg PO DAILY [facility]; Protocol Last Admin: 07/02/18 09:30 Dose: 100 mg Haloperidol (Haldol) 0.5 mg PO Q6H PRN PRN Reason: Agitation Last Admin: 06/26/18 23:14 Dose: 0.5 mg Insulin Aspart (Novolog) 0 unit SC ACHS [facility]; Protocol Last Admin: 07/02/18 11:18 Dose: 12 u Insulin Glargine (Lantus) 10 unit SC Q12 [facility] Last Admin: 07/02/18 09:30 Dose: 10 units Levothyroxine Sodium (Synthroid) 50 mcg PO DAILY@0630 [facility] Last Admin: 07/02/18 06:02 Dose: 50 mcg Metoprolol Succinate (Toprol Xl) 25 mg PO DAILY [facility] Last Admin: 07/02/18 09:30 Dose: 25 mg Tamsulosin HCl (Flomax) 0.4 mg PO DAILY [facility] Last Admin: 07/02/18 09:29 Dose: 0.4 mg - Labs Labs: 06/27/18 06:29 06/27/18 06:29 PT 11.0 SECONDS (9.7-12.2) 06/22/18 09:29 INR 1.0 06/22/18 09:29 APTT 32 SECONDS (21-34) 06/22/18 09:29 - Constitutional Appears: No Acute Distress - Head Exam Head Exam: ATRAUMATIC, NORMOCEPHALIC - Eye Exam Eye Exam: Normal appearance - ENT Exam ENT Exam: Mucous Membranes Moist - Neck Exam Neck Exam: Normal Inspection - Respiratory Exam Respiratory Exam: Decreased Breath Sounds, Clear to Ausculation Bilateral, NORMAL BREATHING PATTERN - Cardiovascular Exam Cardiovascular Exam: REGULAR RHYTHM, +S1, +S2. absent: Bradycardia, Tachycardia, Clicks, Diastolic murmur, Gallop, Irregular Rhythm, JVD, RRR, Rubs, +S4, Murmur - GI/Abdominal Exam GI & Abdominal Exam: Soft, Normal Bowel Sounds. absent: Bruit, Distended, Firm, Guarding, Rigid, Tenderness, Diminished Bowel Sounds, Hernia, Hyperactive Bowel Sounds, Hypoactive Bowel Sounds, Organomegaly, Pulsatile Mass, Rebound, Mass - Extremities Exam Extremities Exam: Normal Inspection Assessment and Plan (1) Altered mental status Assessment & Plan: improved ,corynebacteruim in blood one set was positive and the rest negative, was probabley a contaminant . His mental status was change due to metabolic encephalopathy Status: Acute (2) Hyperglycemia Status: Acute (3) Severe sepsis Assessment & Plan: Patient improved on Rocephin iv now on Vantin Status: Acute (4) UTI (urinary tract infection) Assessment & Plan: now yeast is on diflucan needs one more day Status: Acute (5) Renal failure Assessment & Plan: serum creatinine is high Status: Acute
--- NOTE | 2018-07-02 17:04 | CP.PCM.PN ---
Subjective - Date & Time of Evaluation Date of Evaluation: 07/02/18 Time of Evaluation: 11:00 Objective - Vital Signs/Intake and Output Vital Signs (last 24 hours): Temp Pulse Resp BP Pulse Ox 97.5 F L 60 20 156/74 H 100 07/02/18 15:58 07/02/18 15:58 07/02/18 15:58 07/02/18 15:58 07/02/18 15:58 Intake and Output: 07/02/18 07/02/18 06:59 18:59 Intake Total 540 300 Output Total 400 Balance 140 300 - Medications Medications: Current Medications Aspirin (Ecotrin) 81 mg PO DAILY [facility] Last Admin: 07/02/18 09:30 Dose: 81 mg Cefpodoxime Proxetil (Vantin) 200 mg PO BID [facility]; Protocol Stop: 07/02/18 18:00 Last Admin: 07/02/18 09:29 Dose: 200 mg Clopidogrel Bisulfate (Plavix) 75 mg PO DAILY [facility] Last Admin: 07/02/18 09:29 Dose: 75 mg Diltiazem HCl (Cardizem Cd) 180 mg PO DAILY [facility] Last Admin: 07/02/18 09:29 Dose: 180 mg Famotidine (Pepcid) 20 mg PO DAILY [facility] Last Admin: 07/02/18 09:29 Dose: 20 mg Fluconazole (Diflucan) 100 mg PO DAILY [facility]; Protocol Last Admin: 07/02/18 09:30 Dose: 100 mg Haloperidol (Haldol) 0.5 mg PO Q6H PRN PRN Reason: Agitation Last Admin: 06/26/18 23:14 Dose: 0.5 mg Insulin Aspart (Novolog) 0 unit SC ACHS [facility]; Protocol Last Admin: 07/02/18 11:18 Dose: 12 u Insulin Glargine (Lantus) 10 unit SC Q12 [facility] Last Admin: 07/02/18 09:30 Dose: 10 units Levothyroxine Sodium (Synthroid) 50 mcg PO DAILY@0630 [facility] Last Admin: 07/02/18 06:02 Dose: 50 mcg Metoprolol Succinate (Toprol Xl) 25 mg PO DAILY [facility] Last Admin: 07/02/18 09:30 Dose: 25 mg Tamsulosin HCl (Flomax) 0.4 mg PO DAILY [facility] Last Admin: 07/02/18 09:29 Dose: 0.4 mg - Labs Labs: 06/27/18 06:29 10 06:29 PT 11.0 SECONDS (9.7-12.2) 06/22/18 09:29 INR 1.0 06/22/18 09:29 APTT 32 SECONDS (21-34) 06/22/18 09:29 Assessment and Plan - Assessment and Plan (Free Text) Assessment: 78 year old male admitted with sepsis, renal insufficiency, seen and examined. Alert, responsive, out of bed on the chair. Denies sob or chest pains, NAD.Discussed with DR Anita Aragon and DR Arteaga, plan to discharge home on present home meds, diflucan to continue for 2 more days. Advised to follow up with PMD in 1 week.
--- NOTE | 2018-07-07 10:59 | PQF ---
PROVIDER RESPONSE TEXT: Pt had a sepsis as came withfever and ams So sepsis was ruled in Respiratory track infection REVIEWER QUERY TEXT: Rule Out Sepsis Clarification Rule out Sepsis is documented in the Medical Record. Please clarify whether: -- Patient has sepsis - Please document confirmed, suspected or probable causative organism - Please document confirmed, suspected or probable localized infection - Please clarify if sepsis is related to a device - Please clarify if sepsis was present on admission -- Sepsis was ruled out (include corresponding diagnosis for patient?s clinical picture and treatment ) -- Patient had sepsis which is resolved -- Other, please specify The patient's Clinical Indicators include: 78 Year old male is a poor historian due to clinical condition admitted with Altered mental status, Fever and hyperglycemia. Sepsis Documentation on Progress notes. Query created by: Miriam Bob on 07/05/2018 3:04 PM Electronically signed by: Kevin BURGESS 07/07/2018 10:56 AM
== END 2018-07-02 17:23 | disposition home or self-care (01) | DRG 871 ==
LOC: C.ER 08:51 → C.9E 11:04 → C.9I 11:52 → C.3T 06-25 12:56
PROVIDERS: ADMIT Internal Medicine Nephrology; ATTEND Internal Medicine Nephrology
DX: A41.9 Sepsis, unspecified organism (principal); E11.10 Type 2 diabetes mellitus with ketoacidosis without coma; G93.41 Metabolic encephalopathy; J98.11 Atelectasis; F02.81 Dementia in other diseases classified elsewhere, unspecified severity, with behavioral disturbance; I13.0 Hypertensive heart and chronic kidney disease with heart failure and stage 1 through stage 4 chronic kidney disease, or unspecified chronic kidney disease; N39.0 Urinary tract infection, site not specified; R65.20 Severe sepsis without septic shock; E78.00 Pure hypercholesterolemia, unspecified; E05.90 Thyrotoxicosis, unspecified without thyrotoxic crisis or storm; I25.2 Old myocardial infarction; Z87.891 Personal history of nicotine dependence; Z95.1 Presence of aortocoronary bypass graft; G30.9 Alzheimer's disease, unspecified; E11.22 Type 2 diabetes mellitus with diabetic chronic kidney disease; N18.9 Chronic kidney disease, unspecified; I50.9 Heart failure, unspecified; E11.40 Type 2 diabetes mellitus with diabetic neuropathy, unspecified